=== PATIENT | male | born 1960 | race Caucasian/White ===

== ENCOUNTER 2017-07-20 19:11 | Emergency (ER) | payer OTHER ==
[~2017-07-20] VITALS: Ht 185.4 cm; Wt 84.0 kg
[~2017-07-20 19:11] MED LIST: ASPI-232 PO; ATOR-26 PO; CLOP1TAB15 PO; LPR25 PO; NIAC500T11 PO; [UNRECOGNIZED DRUG - OTHER] PO
[2017-07-20 19:20] VITALS: Ht 185.4 cm; Wt 84.0 kg
[2017-07-20] MEDS ORDERED: ROSU40TA PO (20:06)
[2017-07-20] MEDS ORDERED: LISI-729 PO (20:06)
[2017-07-20] MEDS ORDERED: GLC/500 PO (20:06)
[2017-07-20] MEDS ORDERED: NORCO PO (20:06)
[2017-07-20] MEDS ORDERED: B-COTAB18 PO (20:06)
[2017-07-20] MEDS ORDERED: LVMI SQ (20:13)
--- NOTE | 2017-07-20 20:58 | DIAGNOSTIC IMAGING REPORT ---
SACRUM AND COCCYX 3 VIEWS CLINICAL HISTORY: Fall with tailbone pain. FINDINGS: 3 views of the sacrum and coccyx are obtained. No prior studies are available for comparison at the time of dictation. The skeletal structures are osteopenic. There is no clear radiographic evidence of fracture involving the sacrum or coccyx. Advanced lumbosacral spondylosis is partially imaged. Sclerotic change is noted in the sacroiliac joints. There is a nonobstructed abdominal bowel gas pattern. IMPRESSION: Osteopenia with no clear radiographic evidence of sacrococcygeal fracture. Electronically signed by: Kayode Serrato M.D. 07/20/2017 8:56 PM Dictated Date/Time: 07/20/2017 8:55 PM
--- NOTE | 2017-07-20 21:00 | DIAGNOSTIC IMAGING REPORT ---
LEFT HAND 3 VIEWS CLINICAL HISTORY: Fall with left hand pain. FINDINGS: 3 views of left hand are obtained. No prior studies are available for comparison at the time of dictation. The skeletal structures appear well mineralized. No fracture is seen. Mild arthritic changes present involving the interphalangeal joints. Atherosclerotic calcification is noted in the radial artery. Mild dorsal soft tissue sinus noted. IMPRESSION: Dorsal soft tissue swelling with no radiographic evidence of left hand fracture. Electronically signed by: Kayode Serrato M.D. 07/20/2017 8:59 PM Dictated Date/Time: 07/20/2017 8:57 PM
--- NOTE | 2017-07-20 21:31 | EMERGENCY ROOM VISIT NOTE ---
History First contact with patient: 19:56 Chief Complaint: FALL Stated Complaint: FALL,HURT TAILBONE AND L HAND History of Present Illness The patient is a 56 year old male who presents to the Emergency Room with complaints of tailbone pain and left hand pain after a fall. The patient states that he slipped and fell at work 2 days ago. He fell onto his buttocks on concrete steps and tried to stop his fall with his hand. He rates his discomfort a 7/10. He has been using an herbal cream for the pain without relief. He has a history of an L5-S1 discectomy and has chronic right foot drop. Otherwise, he denies any numbness or weakness of the legs. Bowel movements have been normal. Review of Systems A complete 10 point review of systems was reviewed with the patient with pertinent positives and negatives as per history of present illness. All else were negative. Past Medical/Surgical History Medical Problems: (1) Diabetes mellitus type 2 (2) discectomy (3) Hernia repair (4) History of cholecystectomy Social History Smoking Status: Never Smoker Alcohol Use: none Drug Use: none Marital Status: Housing Status: lives alone Occupation Status: employed Current/Historical Medications Scheduled Aspirin (Aspir-81), 81 MG PO DAILY Insulin Detemir (Levemir), 18 UNITS SQ BID Lisinopril (Zestril), 2.5 MG PO DAILY Metformin Hcl (Glucophage), 500 MG PO BID Metoprolol Tartrate (Lopressor), 25 MG PO BID Rosuvastatin Calcium (Crestor), 40 MG PO DAILY [[place]], 2 TABS PO TODAY Miscellaneous Medications B-Complex Vitamins (Vitamin B Complex), 1 TAB PO Physical Exam Vital Signs Date Time Temp Pulse Resp B/P (MAP) Pulse Ox O2 Delivery O2 Flow Rate FiO2 07/20/17 21:38 36.5 71 16 132/76 99 07/20/17 19:20 36.5 83 16 96/61 98 Room Air Physical Exam VITALS: Vitals are noted on the nurse's note and reviewed by myself. Vital signs stable. GENERAL: This is a 56-year-old male, in no acute distress, nondiaphoretic, well- developed well-nourished. SKIN: No edema, erythema or ecchymosis. HEART: Regular rate and rhythm without murmurs gallops or rubs. LUNGS: Clear to auscultation bilaterally without wheezes, rales or rhonchi. ABDOMEN: Soft, nontender to palpation. MUSCULOSKELETAL: There is tenderness to palpation in the sacral region. Full range of motion of the spine and bilateral lower extremities. Normal gait. There is edema of the left hand and tenderness over the third metacarpal. Full range of motion of the hand. Computing Machine Operator strength 5/5. NEURO: Patient was alert and oriented to person place and time. Normal sensation to light and sharp touch. Medical Decision & Procedures ER Provider Diagnostic Interpretation: SACRUM AND COCCYX 3 VIEWS FINDINGS: 3 views of the sacrum and coccyx are obtained. No prior studies are available for comparison at the time of dictation. The skeletal structures are osteopenic. There is no clear radiographic evidence of fracture involving the sacrum or coccyx. Advanced lumbosacral spondylosis is partially imaged. Sclerotic change is noted in the sacroiliac joints. There is a nonobstructed abdominal bowel gas pattern. IMPRESSION: Osteopenia with no clear radiographic evidence of sacrococcygeal fracture. LEFT HAND 3 VIEWS FINDINGS: 3 views of left hand are obtained. No prior studies are available for comparison at the time of dictation. The skeletal structures appear well mineralized. No fracture is seen. Mild arthritic changes present involving the interphalangeal joints. Atherosclerotic calcification is noted in the radial artery. Mild dorsal soft tissue sinus noted. IMPRESSION: Dorsal soft tissue swelling with no radiographic evidence of left hand fracture. Medical Decision Differential diagnosis includes fracture, contusion, dislocation, sprain, among others. The patient was evaluated as above. Imaging studies were performed and read by radiology as above. No fractures were identified. Conservative measures were discussed with the patient. He will follow-up with his primary care provider as needed. He verbalized understanding of my assessment and treatment plan was discharged home in good condition. Medication Reconcilliation Current Medication List: was personally reviewed by me Blood Pressure Screening Patient's blood pressure: Normal blood pressure Impression Primary Impression: Fall Additional Impression: Contusion of multiple sites Departure Information Dispostion Home / Self-Care Condition GOOD Referrals [facility] (PCP) Patient Instructions My [facility] Additional Instructions For pain control, you can use the following [id number] medicines (if >12 yo): - Regular strength (325mg/tab) Tylenol (acetaminophen) 2 tabs every 4-6 hours as needed. Do not exceed 12 tablets in a 24 hour period. Avoid taking more than 4 grams (4000 mg) of Tylenol per day. This includes any other sources of acetaminophen you may take on a regular basis. - Regular strength (200 mg/tab) Advil (ibuprofen) 1-2 tabs every 4-6 hours as needed. Do not exceed a dose of 3200 mg per day. Apply ice to the areas of pain as needed. Follow-up with your primary care provider as needed. You may buy a "donut" at the pharmacy to sit on which will help with the tailbone pain. Return to the emergency with any worsening or new/concerning symptoms. Problem Qualifiers Primary Impression: Fall Encounter type: initial encounter Qualified Codes: W19.XXXA - Unspecified fall, initial encounter
[2017-07-20 21:38] VITALS: BP 132/76; PULSE 71; TEMP 36.5; O2SAT 99
== END 2017-07-20 21:39 | disposition home or self-care (01) ==
LOC: C.EDB 19:12 → C.EDD 21:39
DX: T14.8 Other injury of unspecified body region (principal); W01.0XXA Fall on same level from slipping, tripping and stumbling without subsequent striking against object, initial encounter; Y92.89 Other specified places as the place of occurrence of the external cause; Y99.0 Civilian activity done for income or pay; E11.9 Type 2 diabetes mellitus without complications; Z90.49 Acquired absence of other specified parts of digestive tract; Z98.890 Other specified postprocedural states; Z79.4 Long term (current) use of insulin; Z79.82 Long term (current) use of aspirin; Z79.84 Long term (current) use of oral hypoglycemic drugs; Z79.899 Other long term (current) drug therapy

== ENCOUNTER 2022-03-30 22:15 | Inpatient (IN) ==
[2022-03-30] MEDS ORDERED: ASPIRIN CHEW 324 MG PO STA (22:24)
[2022-03-30] MEDS ORDERED: MIDAZOLAM HCL 1 MG/ML 2ML VIAL ONE ×2 (22:37→23:33)
[2022-03-30] MEDS ORDERED: HEPARIN (PORCINE) 1000 UNIT/ML 10 ML (CATH LAB USE ONLY) ONE ×2 (22:38→23:38)
[2022-03-30] MEDS ORDERED: fentaNYL citrate 100 MCG/2 ML VIAL ONE (22:38)
[2022-03-30] MEDS ORDERED: niCARdipine HCL INJ 2.5 MG/ML 10 ML AMP ONE (22:38)
[2022-03-30] MEDS ORDERED: NITROGLYCERIN/D5W 100MCG/ML 20ML SYR ONE (22:38)
--- NOTE | 2022-03-30 22:39 | Emergency Department Note ---
Impression & Plan Acute SC, Acute electrocardiogram changes, Precordial chest pain, Elevated troponin ED Provider Note NAME: ANETA VERA AGE: 61 SEX: M : 1960 ARRIVES VIA: Walk-In INFORMANT: [Patient] ED PROVIDER(S): [Kayode Keller MD] CHIEF COMPLAINT: Chest pain HISTORY OF PRESENT ILLNESS: The patient is a 61-year-old male with a history of cardiac stenting and SC. He presents to the ED with around 30 minutes of central chest pain rating to his back and down both shoulders and to his jaw. The pain was moderate in severity. He was a bit short of breath with it and somewhat sweaty. 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 He thinks the pain is a slightly better now compared to when it first began. There has been no cough or cold or congestion. He has been in baseline health. He cannot recall how long ago it was that he had his previous cardiac intervention. REVIEW OF SYSTEMS: See HPI for pertinent positives and negatives. A total of ten systems were reviewed and were otherwise negative. PMHx/PSHx: See Below SOCIAL HISTORY: See Below. PHYSICAL EXAM: GENERAL: Patient is in no acute distress. HEENT: No acute trauma, normocephalic atraumatic, mucous membranes moist, no nasal congestion, no scleral icterus. NECK: No stridor, no adenopathy, no meningismus, trachea is midline. LUNGS: Clear to auscultation bilaterally, no wheeze, no rhonchi, breath sounds equal. HEART: Without murmurs gallops or rubs, regular rate and rhythm. ABDOMEN: Soft, nontender, bowel sounds positive, no hernias, no peritonitis. EXTREMITIES: No cyanosis or edema, full range of motion of all the joints without pain or difficulty, no signs for acute trauma. NEUROLOGIC: Oriented x 3, no acute motor or sensory deficits, no focal weakness. SKIN: No rash, no jaundice, no diaphoresis. DIFFERENTIAL DIAGNOSIS: Cardiac ischemia, aortic dissection, pulmonary embolism, pneumothorax, pneumonia, pericarditis, myocarditis, esophageal rupture, GERD, cholecystitis, pancreatitis, musculoskeletal, as well as other pathologies. EMERGENCY DEPARTMENT COURSE/PROCEDURES: ECG: Indication was chest pain. ECG shows what appears to be a sinus bradycardia with some junctional escape beats. Rate is 66. There is ST elevation in the inferior leads with some ST depression/T wave inversion seen laterally consistent with an inferior posterior SC. QTC is 415. Compared to an ECG from 03 December 2014, significant changes have occurred. Repeat ECG: Indication was chest pain. The ECG shows a normal sinus rhythm with a rate of 91. There is no ST elevation, no PVCs. The QTC is 437. Compared to the ECG from earlier today, the ST changes have resolved. Continuous Cardiac Monitoring: An order was placed for continuous cardiac monitoring. The monitor shows a rate of 75 with normal sinus rhythm. Critical Care Note: I have personally spent 33 minutes of critical care time in the direct management of this patient. This includes bedside care, interpretation of diagnostic studies, and testing, discussion with consultants, patient, and family members, and other required patient management activities. This 33 minutes is in excess of all separately billable procedures. MEDICAL DECISION MAKING: There is no leukocytosis. A very mild anemia was noted. There was a normal platelet count. No coagulopathy. There was some mild renal insufficiency with a creatinine of 1.53. No electrolyte abnormality in need of emergent correction. No concerning liver enzyme elevation. No evidence for pancreatitis. ECG initially showed a sinus bradycardia with some junctional escape beats. There was ST elevation indicating an acute inferior posterior SC. Cardiac troponin testing returned elevated at 432, consistent with cardiac injury. Chest film did not show mediastinal widening, pneumonia or pneumothorax. The patient began to feel better within about 10 to 15 minutes of being here in the ED. Repeat EKG showed normalization of his ST/T wave changes. During the patient's ER stay, he was given oral aspirin. Given the patient's presentation, a heart alert was called. The patient was seen by interventional cardiology and has been taken to the cardiac catheterization laboratory. The patient is aware of his findings, I did speak with the high risk case manager. The on-call hospitalist was consulted as well. Past Med/Surg History Medical History (Updated 03/31/22 @ 02:18 by Kayode Keller MD) CAD (coronary artery disease) Social History Smoking Status: Former smoker Tobacco Type: Smokeless Tobacco (Dip or Chew) Do You Dip or Chew Tobacco: Yes; Hx Alcohol Use: Yes Alcohol type: hard liquor Hx Substance Use: No Preferred Language: Pashto Beliefs That Will Affect Care: None Current Living Situation: Spouse Feels Safe at Home: Yes Safety Concerns: Feels Safe At This Time Allergies Allergies Allergy/AdvReac Type Severity Reaction Status Date / Time morphine Allergy Severe RESPIRATORY Verified 03/30/22 22:45 DISTRESS Home Meds Home Medications Medication Instructions Recorded Confirmed aspirin 81 mg tablet,delayed 81 mg PO DAILY 06/01/19 03/30/22 release ibuprofen 200 mg tablet 400 - 600 mg PO DIRECTED PRN 06/01/19 03/30/22 lisinopril 2.5 mg tablet 0 mg PO QAM 06/01/19 03/30/22 rosuvastatin 40 mg tablet (Crestor) 0 mg PO HS 06/01/19 03/30/22 vitamin B comp and C no.3 15 mg-10 1 cap PO DAILY 06/01/19 03/30/22 mg-50 mg-5 mg-300 mg capsule cinnamon bark-chromium picolinate 1 cap PO DAILY 03/30/22 03/30/22 500 mg-100 mcg capsule metoprolol succinate 25 mg 0 mg PO DAILY 03/30/22 03/30/22 tablet,extended release 24 hr nitroglycerin 0.4 mg sublingual 0.4 mg SUBLINGUAL DIRECTED PRN 03/30/22 03/30/22 tablet (Nitrostat) sitagliptin 25 mg tablet (Januvia) 0 mg PO DAILY 03/30/22 03/30/22 Results & Data (ED) Vital Signs Vital Signs - 24 hr 03/30/22 22:19 03/30/22 22:32 03/30/22 22:45 Temperature 36.8 C Temperature Source Temporal Artery Scan Pulse Rate 79 93 H Respiratory Rate 20 19 25 H Respiratory Effort / Characteristics Non-Labored Spontaneous Respiratory Depth Normal Respiratory Pattern Regular Blood Pressure 101/55 L 145/77 H 134/80 Blood Pressure Mean 70 99 98 Pulse Oximetry 100 100 100 Oxygen Delivery Method Room Air Room Air Room Air Sepsis Recent Fever Within 48 Hours No Sepsis New/Unexplained Change in Mental Status No Sepsis Action Taken by Nursing No Action Required Home Medications Current Medication List: was personally reviewed by me Laboratory Data Attestation: I reviewed the patient's lab results. Result diagrams: 03/30/22 22:27 03/30/22 22:27 Lab Results 03/30/22 03/30/22 03/30/22 Range/Units 22:27 22:27 22:27 WBC 7.34 (4.8-10.8) K/uL RBC 4.37 L (4.7-6.1) M/uL Hgb 13.1 L (14.0-18.0) g/dL Hct 39.6 L (42-52) % MCV 90.6 (80-100) fL MCH 30.0 (25-34) pg MCHC 33.1 (32-36) g/dL RDW Std Deviation 49.3 H (36.4-46.3) fL RDW Coeff of Saroj 14.7 H (11.5-14.5) % Plt Count 311 (130-400) K/uL MPV 10.9 H (7.4-10.4) fL Immature Gran % (Auto) 0.1 % Neut % (Auto) 45.4 % Lymph % (Auto) 40.2 % Trigg % (Auto) 9.8 % Eos % (Auto) 3.7 % Baso % (Auto) 0.8 % Neut # (Auto) 3.33 (1.4-6.5) K/uL Lymph # (Auto) 2.95 (1.2-3.4) K/uL Trigg # (Auto) 0.72 H (0.11-0.59) K/uL Eos # (Auto) 0.27 (0-0.5) K/uL Baso # (Auto) 0.06 (0-0.2) K/uL Immature Gran # (Auto) 0.01 (0.00-0.02) K/uL PT (9.0-12.0) Seconds INR (0.9-1.1) APTT (21.0-31.0) Seconds PTT Ratio Activ Coag Time Kaolin (94-140) SECONDS Sodium 135 L (136-145) mmol/L Potassium 4.1 (3.5-5.1) mmol/L Chloride 103 (98-107) mmol/L Carbon Dioxide 22 (21-32) mmol/L Anion Gap 10 (3-11) BUN 33 H (6-23) mg/dl Creatinine 1.53 H (0.6-1.4) mg/dl Est Cr Clr Drug Dosing 52.0 ml/min Est GFR ( Amer) 55.7 ml/min Est GFR (Non-Af Amer) 48.0 ml/min BUN/Creatinine Ratio 21.6 H (10-20) Glucose 246 H (70-99(Fasting)) mg/dl Calcium 8.7 (8.5-10.1) mg/dl Magnesium 1.8 (1.7-2.4) mg/dl Total Bilirubin 0.5 (0.2-1.0) mg/dl AST 21 (13-39) U/L ALT 18 (7-52) U/L Alkaline Phosphatase 80 (34-104) U/L Troponin I High Sens 432.7 H* (0-20) pg/ml Total Protein 7.0 (6.0-8.3) gm/dl Albumin 4.2 (3.4-5.0) gm/dl Globulin 2.8 (2.5-4.0) gm/dl Albumin/Globulin Ratio 1.5 (0.9-2) Lipase 29 (11-82) U/L SARS-CoV-2, RNA, NAAT (NEGATIVE) 03/30/22 03/30/22 03/30/22 Range/Units 22:27 22:34 23:34 WBC (4.8-10.8) K/uL RBC (4.7-6.1) M/uL Hgb (14.0-18.0) g/dL Hct (42-52) % MCV (80-100) fL MCH (25-34) pg MCHC (32-36) g/dL RDW Std Deviation (36.4-46.3) fL RDW Coeff of Saroj (11.5-14.5) % Plt Count (130-400) K/uL MPV (7.4-10.4) fL Immature Gran % (Auto) % Neut % (Auto) % Lymph % (Auto) % Trigg % (Auto) % Eos % (Auto) % Baso % (Auto) % Neut # (Auto) (1.4-6.5) K/uL Lymph # (Auto) (1.2-3.4) K/uL Trigg # (Auto) (0.11-0.59) K/uL Eos # (Auto) (0-0.5) K/uL Baso # (Auto) (0-0.2) K/uL Immature Gran # (Auto) (0.00-0.02) K/uL PT 10.3 (9.0-12.0) Seconds INR 1.0 (0.9-1.1) APTT 26.4 (21.0-31.0) Seconds PTT Ratio 1.0 Activ Coag Time Kaolin 249 H (94-140) SECONDS Sodium (136-145) mmol/L Potassium (3.5-5.1) mmol/L Chloride (98-107) mmol/L Carbon Dioxide (21-32) mmol/L Anion Gap (3-11) BUN (6-23) mg/dl Creatinine (0.6-1.4) mg/dl Est Cr Clr Drug Dosing ml/min Est GFR ( Amer) ml/min Est GFR (Non-Af Amer) ml/min BUN/Creatinine Ratio (10-20) Glucose (70-99(Fasting)) mg/dl Calcium (8.5-10.1) mg/dl Magnesium (1.7-2.4) mg/dl Total Bilirubin (0.2-1.0) mg/dl AST (13-39) U/L ALT (7-52) U/L Alkaline Phosphatase (34-104) U/L Troponin I High Sens (0-20) pg/ml Total Protein (6.0-8.3) gm/dl Albumin (3.4-5.0) gm/dl Globulin (2.5-4.0) gm/dl Albumin/Globulin Ratio (0.9-2) Lipase (11-82) U/L SARS-CoV-2, RNA, NAAT NEGATIVE (NEGATIVE) 03/30/22 Range/Units 23:57 WBC (4.8-10.8) K/uL RBC (4.7-6.1) M/uL Hgb (14.0-18.0) g/dL Hct (42-52) % MCV (80-100) fL MCH (25-34) pg MCHC (32-36) g/dL RDW Std Deviation (36.4-46.3) fL RDW Coeff of Saroj (11.5-14.5) % Plt Count (130-400) K/uL MPV (7.4-10.4) fL Immature Gran % (Auto) % Neut % (Auto) % Lymph % (Auto) % Trigg % (Auto) % Eos % (Auto) % Baso % (Auto) % Neut # (Auto) (1.4-6.5) K/uL Lymph # (Auto) (1.2-3.4) K/uL Trigg # (Auto) (0.11-0.59) K/uL Eos # (Auto) (0-0.5) K/uL Baso # (Auto) (0-0.2) K/uL Immature Gran # (Auto) (0.00-0.02) K/uL PT (9.0-12.0) Seconds INR (0.9-1.1) APTT (21.0-31.0) Seconds PTT Ratio Activ Coag Time Kaolin 267 H (94-140) SECONDS Sodium (136-145) mmol/L Potassium (3.5-5.1) mmol/L Chloride (98-107) mmol/L Carbon Dioxide (21-32) mmol/L Anion Gap (3-11) BUN (6-23) mg/dl Creatinine (0.6-1.4) mg/dl Est Cr Clr Drug Dosing ml/min Est GFR ( Amer) ml/min Est GFR (Non-Af Amer) ml/min BUN/Creatinine Ratio (10-20) Glucose (70-99(Fasting)) mg/dl Calcium (8.5-10.1) mg/dl Magnesium (1.7-2.4) mg/dl Total Bilirubin (0.2-1.0) mg/dl AST (13-39) U/L ALT (7-52) U/L Alkaline Phosphatase (34-104) U/L Troponin I High Sens (0-20) pg/ml Total Protein (6.0-8.3) gm/dl Albumin (3.4-5.0) gm/dl Globulin (2.5-4.0) gm/dl Albumin/Globulin Ratio (0.9-2) Lipase (11-82) U/L SARS-CoV-2, RNA, NAAT (NEGATIVE) Administered Medications Discontinued Medications Aspirin (Aspirin Chew 324 Mg) 324 mg PO NOW STA Stop: 03/30/22 22:25 Last Admin: 03/30/22 22:32 Dose: 324 mg Documented by: [id number] Atropine Sulfate (Atropine Sulfate 0.1 Mg/Ml 10ml Syr) Confirm Administered Dose 1 mg IV .STK-MED ONE Stop: 03/30/22 23:28 Last Admin: 03/30/22 23:57 Dose: Not Given Documented by: [id number] Clopidogrel Bisulfate (Clopidogrel Bisulfate 300 Mg Tab) Confirm Administered Dose 600 mg .ROUTE .STK-MED ONE Stop: 03/31/22 00:05 Last Admin: 03/31/22 00:14 Dose: 600 mg Documented by: [id number] Fentanyl Citrate (Fentanyl Citrate 100 Mcg/2 Ml Vial) Confirm Administered Dose 100 mcg .ROUTE .STMixamo-MED ONE Stop: 03/30/22 22:39 Last Admin: 03/30/22 23:57 Dose: 100 mcg Documented by: [id number] Heparin Sodium (Porcine) (Heparin (Porcine) 1000 Unit/Ml 10 Ml (Automotive Shop Foreman Use Only)) Confirm Administered Dose 10,000 units .ROUTE .STMixamo-MED ONE Stop: 03/30/22 22:39 Last Admin: 03/30/22 23:57 Dose: 10,000 units Documented by: [id number] Heparin Sodium (Porcine) (Heparin (Porcine) 1000 Unit/Ml 10 Ml (Automotive Shop Foreman Use Only)) Confirm Administered Dose 10,000 units .ROUTE .STMixamo-MED ONE Stop: 03/30/22 23:39 Last Admin: 03/30/22 23:58 Dose: 2,000 units Documented by: [id number] Heparin Sodium/Sodium Chloride (Heparin In Nss Infusion 1000 Unit/500 Ml (2 U/Ml) Bag) Confirm Administered Dose 3,000 units IV .STMixamo-MED ONE Stop: 03/30/22 22:39 Last Admin: 03/30/22 23:57 Dose: 3,000 units Documented by: [id number] Midazolam HCl (Midazolam Hcl 1 Mg/Ml 2ml Vial) Confirm Administered Dose 2 mg .ROUTE .STMixamo-MED ONE Stop: 03/30/22 22:38 Last Admin: 03/30/22 23:56 Dose: 2 mg Documented by: [id number] Midazolam HCl (Midazolam Hcl 1 Mg/Ml 2ml Vial) Confirm Administered Dose 2 mg .ROUTE .STMixamo-MED ONE Stop: 03/30/22 23:34 Last Admin: 03/30/22 23:57 Dose: 1 mg Documented by: [id number] Nicardipine HCl (Nicardipine Hcl Inj 2.5 Mg/Ml 10 Ml Amp) Confirm Administered Dose 25 mg .ROUTE .STK-MED ONE Stop: 03/30/22 22:39 Last Admin: 03/30/22 23:57 Dose: 25 mg Documented by: [id number] Nitroglycerin/Dextrose (Nitroglycerin/D5w 100mcg/Ml 20ml Syr) Confirm Administered Dose 2,000 mcg .ROUTE .STK-MED ONE Stop: 03/30/22 22:39 Last Admin: 03/30/22 23:57 Dose: 2,000 mcg Documented by: [id number] Imaging Data Attestation: I personally reviewed and interpreted this imaging study as fol lows: My Impression: Chest x-ray: There is no mediastinal widening, CHF or pneumonia per my review. Discharge Plan Visit Data Chief Complaint: Chest Pain Stated Complaint: CHEST PAIN ED Provider: Kayode Keller Discharge Problem: Acute SC, Acute electrocardiogram changes, Precordial chest pain, Elevated troponin Patient Disposition: Admitted As Inpatient Condition: Fair Discharge Instructions Interventions: ED Discharge Assessment Last Done: 03/30/22 22:57
[2022-03-30 22:47] LABS: Basophils # (auto) 0.06 K/uL (0-0.2); Basophils % (auto) 0.8 %; Eosinophils # (auto) 0.27 K/uL (0-0.5); Eosinophils % (auto) 3.7 %; Hematocrit (blood only) 39.6 % (42-52); Hemoglobin 13.1 g/dL (14.0-18.0); Immature Granulocytes # (auto) 0.01 K/uL (0.00-0.02); Immature Granulocytes % (auto) 0.1 %; Lymphocytes # (auto) 2.95 K/uL (1.2-3.4); Lymphocytes % (auto) 40.2 %; Mean Corpuscular Hgb Conc 33.1 g/dL (32-36); Mean Corpuscular Volume 90.6 fL (80-100); Mean Platelet Volume 10.9 fL (7.4-10.4); Monocytes # (auto) 0.72 K/uL (0.11-0.59); Monocytes % (auto) 9.8 %; Neutrophils # (auto) 3.33 K/uL (1.4-6.5); Neutrophils % (auto) 45.4 %; Platelet Count 311 K/uL (130-400); RDW Coefficient of Variation 14.7 % (11.5-14.5); RDW Standard Deviation 49.3 fL (36.4-46.3); Red Blood Count 4.37 M/uL (4.7-6.1); White Blood Count 7.34 K/uL (4.8-10.8)
[2022-03-30 22:54] LABS: Partial Thromboplastin Time 26.4 Seconds (21.0-31.0); Prothrombin Time 10.3 Seconds (9.0-12.0)
--- NOTE | 2022-03-30 23:05 | Pre Anesthesia Assessment ---
Date of Service March 30, 2022 Pre Sedation Assessment Vital Signs Temp Pulse Resp BP Pulse Ox 03/30/22 22:45 93 H 25 H 134/80 100 03/30/22 22:32 79 19 145/77 H 100 03/30/22 22:19 98.2 F 20 101/55 L 100 Cardiovascular RRR, no murmur, no edema Respiratory normal respiratory effort, lungs clear to auscultation Pre-Sedation Airway Assessment Smoking Status: Former smoker Hx Sleep Apnea: No Hx Difficult Intubation: No Short, Thick Neck: No Thyromental Distance: > or= 3.5 Finger Breadths Oral Cavity: + WNL Mallampati Class: III ASA: ASA3 Procedure Planning Contraindications for Sedation: none Current Medications Reviewed: Yes Notes The planned sedation has been discussed with the patient. Informed Consent was obtained. I have identified the patient, determined the appropriateness of sedation and have assessed the patient immediately prior to the procedure. All medicine(s) and interventions are by my order.
[2022-03-30 23:07] LABS: Albumin Globulin Ratio 1.5 (0.9-2); Albumin Level 4.2 gm/dl (3.4-5.0); BUN Creatinine Ratio 21.6 (10-20); Bilirubin,Total 0.5 mg/dl (0.2-1.0); Calcium 8.7 mg/dl (8.5-10.1); Est GFR (African American) 55.7 ml/min; Globulin 2.8 gm/dl (2.5-4.0); Magnesium 1.8 mg/dl (1.7-2.4); Potassium 4.1 mmol/L (3.5-5.1)
--- NOTE | 2022-03-30 23:08 | Cardiology Consultation ---
Date of Consultation March 30, 2022 Assessment & Plan (1) STEMI (ST elevation myocardial infarction): Presentation consistent high risk ACS with transient inferior ST elevations on ECG and recommend proceeding with emergent cardiac catheterization and likely primary PCI. No apparent contraindications to procedure. Discussed risks, benefits, alternatives of procedure with patient and they are willing to proceed. Further recommendations pending findings of coronary angiography. History of Present Illness History of Present Illness 61-year-old man here with acute chest pain and ECG concerning for acute SC. Pat ient seen emergently in the ED after heart alert activated on arrival. Prior cardiac catheterization in 2012 showing three-vessel coronary disease including totally occluded ramus, significant mid LAD and OM stenosis. Underwent EDGARD x3 to LAD, OM1 and ramus at [facility]. Last stress echo 12/2014 revealed normal resting LV function. Other medical issues include type 2 diabetes on insulin, hypertension. 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 Describes substernal chest pain radiating to his back, down both shoulders and into his jaw. Associated with mild diaphoresis, shortness of breath. On arrival active chest pain and initial ECG showed junctional rhythm with inferior ST elevations. After aspirin chest pain improved and follow-up EKG showed resolved ST elevations. Allergies Allergy/AdvReac Type Severity Reaction Status Date / Time morphine Allergy Severe RESPIRATORY Verified 03/30/22 22:45 DISTRESS Home Medications Medication Instructions Recorded Confirmed Type aspirin 81 mg tablet,delayed 81 mg PO DAILY 06/01/19 03/30/22 History release ibuprofen 200 mg tablet 400 - 600 mg PO DIRECTED PRN 06/01/19 03/30/22 History lisinopril 2.5 mg tablet 0 mg PO QAM 06/01/19 03/30/22 History rosuvastatin 40 mg tablet (Crestor) 0 mg PO HS 06/01/19 03/30/22 History vitamin B comp and C no.3 15 mg-10 1 cap PO DAILY 06/01/19 03/30/22 History mg-50 mg-5 mg-300 mg capsule cinnamon bark-chromium picolinate 1 cap PO DAILY 03/30/22 03/30/22 History 500 mg-100 mcg capsule metoprolol succinate 25 mg 0 mg PO DAILY 03/30/22 03/30/22 History tablet,extended release 24 hr nitroglycerin 0.4 mg sublingual 0.4 mg SUBLINGUAL DIRECTED PRN 03/30/22 03/30/22 History tablet (Nitrostat) sitagliptin 25 mg tablet (Januvia) 0 mg PO DAILY 03/30/22 03/30/22 History Patient History Medical History (Updated 03/31/22 @ 00:14 by Maco Avelar MD) CAD (coronary artery disease) Social History Smoking Status: Former smoker Tobacco Type: Smokeless Tobacco (Dip or Chew) Preferred Language: Belizean Feels Safe at Home: Yes Review of Systems Review of Systems: All systems reviewed & are unremarkable except as noted in HPI & below Physical Exam Physical Exam: General: Comfortable HEENT: Sclerae anicteric Lungs: Clear to auscultation bilaterally, no crackles or wheezes Cardiac: Regular rate and rhythm, no murmurs. Vascular: 2+ radial, DP pulses. Abdomen: Soft, nontender Extremities: Well perfused, no peripheral edema Neuro: Nonfocal Psych: Alert orient x3, normal affect and mood Results & Data ([facility]) Vital Signs (Past 12 Hours) Vital Signs Temp Pulse Resp BP Pulse Ox 03/30/22 22:45 93 H 25 H 134/80 100 03/30/22 22:32 79 19 145/77 H 100 03/30/22 22:19 98.2 F 20 101/55 L 100 PG Care Time/CCT Total # of Minutes Spent Total Time Spent with Patient: Total time spent is greater than 50% in coordination of care (as documented) at patient's floor/unit and/or counseling patient: Coding Level of Care Code 66585 Inpt Consult Level 4 Diagnoses STEMI (ST elevation myocardial infarction) I21.3
[2022-03-30] MEDS ORDERED: ATROPINE SULFATE 0.1 MG/ML 10ML SYR IV ONE (23:27)
[2022-03-31] MEDS ORDERED: CLOPIDOGREL BISULFATE 300 MG TAB ONE (00:04)
[2022-03-31] MEDS ORDERED: ONDANSETRON INJ 2 MG/ML 2 ML VIAL IV PRN (00:15)
[2022-03-31] MEDS ORDERED: ACETAMINOPHEN 325 MG TAB PO PRN (00:15)
[2022-03-31] MEDS ORDERED: ICU PROTOCOL FOR HYPERGLYCEMIA PRN (00:20)
--- NOTE | 2022-03-31 00:24 | Post Anesthesia Assessment ---
Date of Service March 31, 2022 Post Sedation Assessment Vital Signs Temp Pulse Resp BP Pulse Ox 03/30/22 22:45 93 H 25 H 134/80 100 03/30/22 22:32 79 19 145/77 H 100 03/30/22 22:19 98.2 F 20 101/55 L 100 Recovery Score Activity: Moves 4 extremities Respiration: Deep Breath/Cough Circulation: +/-20% PreAnes Value Consciousness: Fully Awake Oxygen Saturation: O2 needed for >90% Discharge Sedation Level of Care: Fast Track Phase II Post Sedation Plan On clinical assessment, the patient appears to have tolerated the sedation without complications. Patient is recovering as anticipated. Patient will continue to be monitored by nursing and may be discharged when sedation discharge criteria are met per below protocol. Upon Completions of procedure up to 15 minutes continue every 5 minute vital s igns and the P.A.R. score; then discharge to a Phase I or Fast Track to Phase II per the following guidelines: * Discharge Patient to appropriate Phase II area if PAR is 8 or greater or return to pre- procedure baseline. The post - procedure orders will be as directed. * If PAR score is less than 8 or not return to pre-procedure baseline then patient will follow Phase I monitoring till PAR is reached for Phase II. The Phase I may be done in procedure room or may call to secure a Phase I area. * If naloxone or flumazenil are used for reversal, hold in Phase I for continued monitoring from when last reversal dose was given for a minimum of 60 minutes or longer pending the nurse and/or physician discretion of patient condition before discharge to Phase II. Please call the Sedation Physician to re-evaluate and complete post-note for discharge to Phase II area. Do NOT discharge from procedure sedation or Phase 1 until post- sedation evaluation note is complete by procedure /sedation MD Sedation Discharge Instructions to be given to the patient at discharge to home.
--- NOTE | 2022-03-31 00:30 | Cardiac Catheterization ---
ACC Data: Employment Coach Cardiac Status Clinical evaluation leading to the procedure CAD Presenation: STEMI Anginal Classification: CCS IV Diagnostic Physicians Name: Jose G Avelar MD Closure Device Recommendations: PCI without planned CABG Cardiac Cath Procedure Full Procedure Date March 31, 2022 Pre-Procedure Diagnosis Pre-Procedure Diagnosis: STEMI AUC Score AUC Score: 9 Post-Procedure Diagnosis Post-Procedure Diagnosis: Severe CAD and Successful PCI Procedure(s) Performed Procedure(s) Performed: Coronary Angiography, Left Heart Cath and Drug Eluting Stent Aviation Warfare Systems Operator Jose G Avelar MD Clinical Trial Leader(s) Cabinetmaker Maintenance Estimated Blood Loss Estimated Blood Loss: 15 Medication(s) Medication(s): Clopidogrel, Fentanyl, Heparin, Lidocaine 1%, Nicardipine, Nitroglycerin and Versed Summary of Findings Indication: STEMI/Heart Alert Access: 6 Fr right radial artery Catheters: [email or web address] guide Findings: LM -normal caliber, no significant disease LAD -medium caliber, proximal to mid stent widely patent, 40 to 50% focal mid stenosis just after stent. Very distal LAD subtotally occluded as wraps around apex. Ramusproximal stent widely patent, 70% mid segment stenosis Circumflex -medium caliber, 40% mid stenosis. 60 to 70% stenosis in OM 2 after prior stent RCA -dominant, medium caliber, acute 98% proximal stenosis with thrombus, 70% early distal stenosis, 90% latedistal stenosis at bifurcation extending into PDA. LVEDP -6 -- PCI -- Antithrombotic therapy: Heparin, clopidogrel Procedure: RCA cannulated with JR4 guide After initial diagnostic images, proximal LAD occluded with OFELIA 0 flow Self Sealing Fuel Tank Repairer 50 wire passed across lesion into distal PLB Proximal RCA lesion predilated with 2.0 compliant balloon and flow reestablished Second semiconductor wafers marker 50 wire placed into distal right PDA Distal RCA lesions dilated with 2.0 balloon Distal RCA stented with 2.5 x 30 mm Hal drug-eluting stent into PDA Stent postdilated with 2.75 NC Proximal RCA stented with 3.0 x 15 mm Hal drug-eluting stent Stent post-dilated with 3.5 noncompliant balloon IC vasodilators administered for spasm Post procedure OFELIA 3 flow, stents well expanded with minimal residual stenosis and no apparent cardiac complications. Arterial Closure: TR band Summary: 1. Inferior STEMI/subtotal acute proximal RCA occlusion 2. Multivessel non-culprit coronary artery disease - Patent proximal to mid LAD stent, 40% mid after stent, subtotal apical LAD occlusion Patent proximal ramus stent, 70% mid ramus Patent OM2 stent with 60 to 70% stenosis after stent Distal RCA 70% stenosis, 90% stenosis at bifurcation into PDA 3. Normal intracardiac filling pressure 4. Successful PCI of proximal RCA with single drug-eluting stent (3.0 x 15 mm Flushing; postdilated with 3.5 NC). 5. Successful PCI of distal RCA into PDA with single drug-eluting stent (2.5 x 30 mm Flushing; postdilated with 2.75 NC). Recommendations: Admit to ICU for continued monitoring Loaded with clopidogrel 600 mg in Employment Coach Continue dual-antiplatelet therapy for at least 1 year. Trend troponins until peak, Check Echo Uptitrate beta-tonia/YANET as BP allows High-dose statin Consult cardiac Rehab Hemodynamics Rest Ao:: 101/56/76 Final Ao: 98/53/75 LV: 83/6 Recommendations Recommendations: PCI without planned CABG Specimens Specimens: None Radiation Exposure (mGy) 3364 Contrast (mls) 100 Anesthesia Moderate 8604-6553 Procedural Complication(s) None Disposition ICU I attest to the content of the Intraoperative Record and any orders documented therein. Any exceptions are noted below. [facility] Card Cath Procedure Codes Cardiac Catheterization Procedure 1: Cardiovascular Cath Procedures: 19970 Coronaries and LHC (+/-LV) Moderate Sedation Procedure 1: Sedation/Anesthesia: 19611 Mod Sedation by the same physician;Init15 Min Child Age 5 & Up Procedure 2: Sedation/Anesthesia: 13036 Mod Sedation by the same physician; Ea [id number] Minutes Stenting Procedure 1: Cardiovascular Stent Procedures: 64039 Perc transluminal revascularization of acute sub/total occl, aMI PG Care Time/CCT Total # of Minutes Spent Total Time Spent with Patient: Total time spent is greater than 50% in coordination of care (as documented) at patient's floor/unit and/or counseling patient:
[2022-03-31] MEDS ORDERED: SODIUM CHLORIDE 0.9% 1000ML 500 ML IV SCH (00:45)
--- NOTE | 2022-03-31 02:07 | Critical Care Consultation ---
Date of Consultation March 31, 2022 Assessment & Plan (1) Admitted to intensive care unit: Reason Critically Ill: 61-year-old male with acute inferior STEMI status post PTCI with EDGARD x2 to the RCA requiring close hemodynamic monitoring status post coronary intervention. NEURO - * CAM ICU: NEGATIVE CARDIAC/VASCULAR - * Acute Inferior STEMI s/p PTCI w/ EDGARD x2 to the RCA: * Chest pain free at this time. * Trend Trops * AM Echo * DAPT per cardiology * Continue ASCVD Rx per typical * Monitor on telemetry. RESPIRATORY - * No h/o pulmonary disease. * Saturating well on room air. GI/NUTRITION - * AHA/DM Diet RENAL/LYTES - * SAUD * IVF: NSS for a total of 500 mL - * No concerns at this time. ENDO - * DMII * BSGs per unit protocol. ISS --> gtt per unit policy. HEME - * Stable H&H ID - * No concerns for infectious contribution at this time. LINES/IV ACCESS - * PIVs x2 DVT PROPHYLAXIS - * Hold on chemoprophylaxis s/p Heparin administration in the lab systems analyst. Anticipate early ambulation. * SCDs I have personally spent 32 minutes of critical care time in the direct management of this patient. This is a life/limb threatening event. This includes time spent evaluating patient, direct bedside care, chart review, placing orders, interpretation of diagnostic studies, discussion with consultants, patient, and family members, as well as other required patient management activities. This time is exclusive of all separately billable procedures, and teaching time and separate from and in addition to any other critical care service time. Thank you for allowing us to participate in the care of this patient. Please refer to my attending physician's documentation for any further recommendations. (2) ST elevation myocardial infarction (STEMI) of inferior wall: (3) S/P PTCA (percutaneous transluminal coronary angioplasty): (4) S/P drug eluting coronary stent placement: (5) Hyperlipidemia: (6) DMII (diabetes mellitus, type 2): History of Present Illness Attending Physician: Fina Orellana MD History of Present Illness Patient is a 61-year-old male with a significant past medical history of coronary artery disease, hypertension, hyperlipidemia, and diabetes who presents to the emergency department with an abrupt onset of midsternal chest pain. Patient was noted to have an inferior STEMI on EKG. He was made a heart alert and taken emergently to the catheterization suite. Patient underwent PTCI with EDGARD x2 to the RCA. Patient had complete symptom resolved status post intervention. Upon evaluation in the ICU, the patient is awake, alert, and oriented. The patient denies any complaints of chest discomfort at this time. He reports that he was feeling lightheaded prior to resolved chest discomfort, however that has since subsided. The patient denies complaints of headaches, dizziness, lightheadedness, chest pain, palpitations, shortness of breath, pleuritic pain, nausea, vomiting, abdominal discomfort, or numbness/weakness to his extremities. Allergies Allergy/AdvReac Type Severity Reaction Status Date / Time morphine Allergy Severe RESPIRATORY Verified 03/30/22 22:45 DISTRESS Home Medications Medication Instructions Recorded Confirmed Type aspirin 81 mg tablet,delayed 81 mg PO DAILY 06/01/19 03/31/22 History release ibuprofen 200 mg tablet 400 - 600 mg PO DIRECTED PRN 06/01/19 03/31/22 History lisinopril 2.5 mg tablet 2.5 mg PO QAM 06/01/19 03/31/22 History rosuvastatin 40 mg tablet (Crestor) 40 mg PO HS 06/01/19 03/31/22 History vitamin B comp and C no.3 15 mg-10 1 cap PO DAILY 06/01/19 03/31/22 History mg-50 mg-5 mg-300 mg capsule cinnamon bark-chromium picolinate 1 cap PO DAILY 03/30/22 03/31/22 History 500 mg-100 mcg capsule metoprolol succinate 25 mg 25 mg PO DAILY 03/30/22 03/31/22 History tablet,extended release 24 hr nitroglycerin 0.4 mg sublingual 0.4 mg SUBLINGUAL DIRECTED PRN 03/30/22 03/31/22 History tablet (Nitrostat) sitagliptin 25 mg tablet (Januvia) 0 mg PO DAILY 03/30/22 03/31/22 History insulin detemir U-100 100 unit/mL 30 unit SUBCUT DAILY 03/31/22 03/31/22 History subcutaneous solution Patient History Medical History CAD (coronary artery disease) DMII (diabetes mellitus, type 2) Hyperlipidemia Surgical History History of cholecystectomy (07/11/13) Family History Mother Coronary heart disease Father Diabetes Social History Smoking Status: Former smoker Tobacco Type: Smokeless Tobacco (Dip or Chew) Do You Dip or Chew Tobacco: Yes; Hx Alcohol Use: Yes Alcohol type: hard liquor Hx Substance Use: No Preferred Language: Bahraini Beliefs That Will Affect Care: None Current Living Situation: Spouse Feels Safe at Home: Yes Safety Concerns: Feels Safe At This Time Review of Systems Review of Systems: A complete 10 point review of systems was reviewed with the patient with pertinent positives and negatives as per history of present illness. All else were negative. Physical Exam Physical Exam: VITAL SIGNS - Vital signs and nursing notes were reviewed. GENERAL - 61-year-old male appearing his stated age who is in no acute distress. Communicates well with provider and answers questions appropriately. HEAD - NC/AT. EYES - PERRL with EOMI bilaterally. Sclera anicteric. EARS - No deformities of external structures noted on gross examination bilaterally. NOSE - Midline and without cyanosis. MOUTH/OROPHARYNX - Without perioral cyanosis. Buccal mucosa pink and moist. NECK - Neck with FROM. Supple to palpation. LUNGS - Chest wall symmetric without accessory muscle use, intercostals retractions, or central cyanosis. Normal vesicular breath sounds CTA B/L. No wheezes, rales, or rhonchi appreciated. CARDIAC - RRR with S1/S2. No murmur, rubs, or gallops appreciated. No reproducible tenderness to palpation appreciated over the anterior chest wall. ABDOMEN - Abdominal contour obese without pulsations or visible masses. BS norm oactive all four quadrants. No tenderness, palpable masses, hepatosplenomegaly, or ascites noted. EXTREMITIES - No clubbing or peripheral cyanosis. No pretibial edema present. +3/5 radial and dorsalis pedis pulses palpated throughout. +5/5 strength noted in UE/LE bilaterally. NEUROLOGIC - Cranial nerves II through XII grossly intact. Sensory intact to light touch throughout. PSYCH - A&Ox3 and cooperates fully with examiner. Pt is very pleasant and interacts well with examiner. Results & Data Results & Data ([facility]) Vital Signs (Past 12 Hours) Vital Signs Temp Pulse Pulse Resp BP BP Pulse Ox 03/31/22 01:45 82 21 94 03/31/22 01:37 36.5 C 78 18 110/69 99 03/31/22 01:30 83 20 130/71 95 03/31/22 01:15 78 20 99 03/31/22 01:00 79 20 133/75 95 03/31/22 00:45 78 18 99 03/31/22 00:43 77 12 99 03/31/22 00:42 110/69 03/31/22 00:21 76 03/30/22 22:45 93 H 25 H 134/80 100 03/30/22 22:32 79 19 145/77 H 100 03/30/22 22:19 36.8 C 20 101/55 L 100 Coding Level of Care Code Critical Care 1st 30-74 mins Diagnoses Admitted to intensive care unit Z78.9 ST elevation myocardial infarction (STEMI) of inferior wall I21.19 S/P PTCA (percutaneous transluminal coronary angioplasty) Z98.61 S/P drug eluting coronary stent placement Z95.5 Hyperlipidemia E78.5 DMII (diabetes mellitus, type 2) E11.9 Time Spent (min) 32
[2022-03-31] MEDS ORDERED: GLUCOSE 40% GEL 15 GM TUBE PO PRN ×2 (02:30→05:00)
[2022-03-31] MEDS ORDERED: DEXTROSE 50% 50 ML SYRINGE IV PRN ×2 (02:30→05:00)
[2022-03-31] MEDS ORDERED: GLUCAGON FOR INJ 1 MG VIAL SQ PRN ×2 (02:30→05:00)
[2022-03-31] MEDS ORDERED: PHARMACY GLYCEMIC MGMT CONSULT PRN ×2 (02:30→08:04)
[2022-03-31] MEDS ORDERED: GLUCOSE 10 TABS/TUBE PO PRN ×2 (02:30→05:00)
[2022-03-31] MEDS ORDERED: CARBOHYDRATES FOR HYPOGLYCEMIA PO PRN ×2 (02:30→05:00)
[2022-03-31] MEDS: INSULIN ASPART PER UNIT SC SCH ×5 (03:43→20:37)
--- NOTE | 2022-03-31 05:05 | History & Physical Report ---
Date of Service March 31, 2022 Assessment & Plan (1) STEMI (ST elevation myocardial infarction): Plan: ACute occlusion RCA s/p two stents. Cont medical management with ASA 81mg daily, Plavix 75mg daily, Metoprolol 25mg PO BID, lisinopril 5mg PO daily, and Crestor. He remains chest pain free post procedure. Will need to continue working on optimizing DMII care. (2) Hyperlipidemia: Plan: Cont crestor per home medications. (3) DMII (diabetes mellitus, type 2): Plan: Basal/bolus insulin while in the hospital. Goes to [facility] and gets free meds. Unable to pay for Novolog to control his prandial sugars. Continues on sitaglitptin (4) Toe ulcer, right: Plan: Possibly related to DMII-wound care nurse consulted. (5) DVT prophylaxis: Plan: Lovenox Full Code Dispo-to home when cleared by cardiology DO Melly Neville Hospitalist Admission and Anticipated Discharge Date Admission Date: March 31, 2022 History of Present Illness Chief Complaint: chest pain Primary Care Provider: [facility] 61 yo diabetic man with a h/o cardiac stents presents with acute chest pain. Pain was central and radiating into his back and down both shoulders and to his jaw. 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 There was ST elevation in the inferior leads with some ST depression/TWI seen laterally consistent with w an inferoposterior OK. Troponin was 438. He was taken to the mini lab operator and received two additional stents in the RCA for acute occlusions. Some residual cardiac disease remains. He remains chest pain-free post-procedure. Notably, he is taking long acting levemir and sitagliptin, but needs Novolog, which he cannot afford. Uncontrolled DMII may be contributing here. All his medications are free through [facility]. Allergies Allergy/AdvReac Type Severity Reaction Status Date / Time morphine Allergy Severe RESPIRATORY Verified 03/30/22 22:45 DISTRESS Home Medications Medication Instructions Recorded Confirmed Type aspirin 81 mg tablet,delayed 81 mg PO DAILY 06/01/19 03/31/22 History release ibuprofen 200 mg tablet 400 - 600 mg PO DIRECTED PRN 06/01/19 03/31/22 History lisinopril 2.5 mg tablet 2.5 mg PO QAM 06/01/19 03/31/22 History rosuvastatin 40 mg tablet (Crestor) 40 mg PO HS 06/01/19 03/31/22 History vitamin B comp and C no.3 15 mg-10 1 cap PO DAILY 06/01/19 03/31/22 History mg-50 mg-5 mg-300 mg capsule cinnamon bark-chromium picolinate 1 cap PO DAILY 03/30/22 03/31/22 History 500 mg-100 mcg capsule metoprolol succinate 25 mg 25 mg PO DAILY 03/30/22 03/31/22 History tablet,extended release 24 hr nitroglycerin 0.4 mg sublingual 0.4 mg SUBLINGUAL DIRECTED PRN 03/30/22 03/31/22 History tablet (Nitrostat) sitagliptin 25 mg tablet (Januvia) 0 mg PO DAILY 03/30/22 03/31/22 History insulin detemir U-100 100 unit/mL 30 unit SUBCUT DAILY 03/31/22 03/31/22 History subcutaneous solution Past Med/Surg History Medical History CAD (coronary artery disease) DMII (diabetes mellitus, type 2) Hyperlipidemia Surgical History History of cholecystectomy (07/11/13) Family History (Updated 03/31/22 @ 05:17 by Delma Azul DO) Mother Coronary heart disease Father Diabetes Social History Smoking Status: Former smoker Tobacco Type: Smokeless Tobacco (Dip or Chew) Do You Dip or Chew Tobacco: Yes; Hx Alcohol Use: Yes Alcohol type: hard liquor Hx Substance Use: No Preferred Language: Macanese Beliefs That Will Affect Care: None Current Living Situation: Spouse Feels Safe at Home: Yes Safety Concerns: Feels Safe At This Time Review of Systems Review of Systems: All systems were reviewed and negative except as indicated on HIP above. Physical Exam Physical Exam: CONSTITUTIONAL: WNWD, vitals as above, NAD EYES: normal conjunctivae, no scleral icterus, ENT: external ear and nose normal, MMM NECK: trachea midline RESPIRATORY: clear to auscultation bilaterally, no crackles, rales or wheezes, normal respiratory effort CARDIOVASCULAR: regular rate and rhythm, S1 and 2 heard without murmurs, gallops or rubs, no JVD, no peripheral edema CHEST: inspection of chest was normal GASTROINTESTINAL: soft, nontender, ND, no guarding MUSCULOSKELETAL: strength 5/5 throughout, head is normocephalic and atraumatic, neck supple, normal palpation of chest wall without tenderness SKIN: warm and dry, TR band in place on right wrist. R hand is warm and well perfused. Quarter sized ulceration on right great toe per nurse. NEUROLOGIC: CN 2-12 grossly intact, no sensory deficit, normal cognition, normal speech, no tremor PSYCHIATRIC: alert cooperative and oriented to person, place and time. Results & Data Results & Data ([facility] [place]) Vital Signs (Past 12 Hours) Vital Signs Temp Pulse Pulse Resp BP BP Pulse Ox 03/31/22 02:45 73 19 94 03/31/22 02:30 74 18 114/70 93 03/31/22 02:15 75 20 91 03/31/22 02:00 78 18 124/72 94 03/31/22 01:45 82 21 94 03/31/22 01:37 36.5 C 78 18 110/69 99 03/31/22 01:30 83 20 130/71 95 03/31/22 01:15 78 20 99 03/31/22 01:00 79 20 133/75 95 03/31/22 00:45 78 18 99 03/31/22 00:43 77 12 99 03/31/22 00:42 110/69 03/31/22 00:21 76 03/30/22 22:45 93 H 25 H 134/80 100 03/30/22 22:32 79 19 145/77 H 100 03/30/22 22:19 36.8 C 20 101/55 L 100 Laboratory Results Short CBC 03/30/22 Range/Units 22:27 WBC 7.34 (4.8-10.8) K/uL Hgb 13.1 L (14.0-18.0) g/dL Hct 39.6 L (42-52) % Plt Count 311 (130-400) K/uL BMP 03/30/22 22:27 Sodium 135 L Potassium 4.1 Chloride 103 Carbon Dioxide 22 BUN 33 H Creatinine 1.53 H Glucose 246 H Calcium 8.7 Liver Function 03/30/22 Range/Units 22:27 Total Bilirubin 0.5 (0.2-1.0) mg/dl AST 21 (13-39) U/L ALT 18 (7-52) U/L Alkaline Phosphatase 80 (34-104) U/L Albumin 4.2 (3.4-5.0) gm/dl Medications Administered Current Inpatient Medications Acetaminophen (Acetaminophen 325 Mg Tab) 650 mg PO Q4H PRN PRN Reason: MILD Pain (Scale 1,2,3) Stop: 04/30/22 00:14 Aspirin (Aspirin 81 Mg Ectab) [facility] [place] Stop: 04/30/22 08:59 Clopidogrel Bisulfate (Clopidogrel Bisulfate 75 Mg Tab) 75 mg PO [facility] Stop: 04/30/22 08:59 Dextrose (Dextrose 50% 50 Ml Syringe) 25 - 50 ml IV UD PRN; Protocol PRN Reason: Hypoglycemia Protocol Stop: 04/30/22 02:29 Glucagon (Glucagon For Inj 1 Mg Vial) 1 mg SQ UD PRN; Protocol PRN Reason: Hypoglycemia Protocol Stop: 04/30/22 02:29 Glucose (Glucose 10 Tabs/Tube) 4 - 8 tabs PO UD PRN; Protocol PRN Reason: Hypoglycemia Protocol Stop: 04/30/22 02:29 Glucose (Glucose 40% Gel 15 Gm Tube) 15 - 30 gm PO UD PRN; Protocol PRN Reason: Hypoglycemia Protocol Stop: 04/30/22 02:29 Sodium Chloride (Nss 1000ml) 500 mls @ 100 mls/hr IV .Q5H [facility] Stop: 03/31/22 05:44 Last Admin: 03/31/22 00:30 Dose: 100 mls/hr Documented by: Insulin Aspart (Insulin Aspart Per Unit) 0 units SC ACHS [facility] Stop: 04/30/22 02:44 Last Admin: 03/31/22 03:43 Dose: 3 units Documented by: Insulin Glargine (Insulin Glargine Solostar 100 Units/Ml 3 Ml Pen) 10 units SC BID [facility] Stop: 04/30/22 08:59 Lisinopril (Lisinopril 5 Mg Tab) 5 mg PO QAM [facility] Stop: 04/30/22 08:59 Lisinopril (Lisinopril 2.5 Mg Tab) 2.5 mg PO QAM [facility] Stop: 04/30/22 08:59 Metoprolol Tartrate (Metoprolol Tartrate 25 Mg Tab) 25 mg PO BID [facility] Stop: 04/30/22 08:59 Miscellaneous ([facility] Protocol For Hyperglycemia) 1 ea N/A PRN PRN; Protocol PRN Reason: Hyperglycemia Protocol Stop: 04/02/22 00:19 Miscellaneous (Carbohydrates For Hypoglycemia ) 15 - 30 gm PO UD PRN PRN Reason: Hypoglycemia Protocol Stop: 04/30/22 02:29 Miscellaneous Information (Pharmacy Glycemic Mgmt Consult) 1 ea N/A UD PRN; Protocol PRN Reason: Consult Stop: 04/30/22 02:29 Ondansetron HCl (Ondansetron Inj 2 Mg/Ml 2 Ml Vial) 4 mg IV Q6H PRN PRN Reason: Nausea And Vomiting Stop: 04/30/22 00:14 Rosuvastatin Calcium (Rosuvastatin Calcium 20 Mg Tab) 40 mg PO HS [facility] Stop: 04/30/22 20:59
[2022-03-31 05:46] LABS: Basophils # (auto) 0.03 K/uL (0-0.2); Basophils % (auto) 0.5 %; Eosinophils # (auto) 0.21 K/uL (0-0.5); Eosinophils % (auto) 3.6 %; Hematocrit (blood only) 35.8 % (42-52); Hemoglobin 11.8 g/dL (14.0-18.0); Immature Granulocytes # (auto) 0.01 K/uL (0.00-0.02); Immature Granulocytes % (auto) 0.2 %; Lymphocytes # (auto) 2.18 K/uL (1.2-3.4); Lymphocytes % (auto) 37.7 %; Mean Corpuscular Hemoglobin 29.7 pg (25-34); Mean Corpuscular Volume 90.2 fL (80-100); Mean Platelet Volume 10.5 fL (7.4-10.4); Monocytes % (auto) 8.6 %; Neutrophils # (auto) 2.86 K/uL (1.4-6.5); Neutrophils % (auto) 49.4 %; Platelet Count 250 K/uL (130-400); RDW Coefficient of Variation 14.8 % (11.5-14.5); RDW Standard Deviation 49.4 fL (36.4-46.3); Red Blood Count 3.97 M/uL (4.7-6.1); White Blood Count 5.79 K/uL (4.8-10.8)
[2022-03-31 05:57] LABS: BUN Creatinine Ratio 27.4 (10-20); Est GFR (African American) 86.8 ml/min; Est GFR (Non-African American) 74.8 ml/min; Magnesium 1.8 mg/dl (1.7-2.4); Phosphorus 2.7 mg/dl (2.5-4.9); Potassium 3.7 mmol/L (3.5-5.1)
--- NOTE | 2022-03-31 06:56 | XRay Report ---
XR chest 1V portable HISTORY: 61 years-old Male Chest Pain acute atypical chest pain COMPARISON: Chest radiographs 07/11/2013 TECHNIQUE: Portable AP view of the chest FINDINGS: The cardiomediastinal and hilar silhouettes are within normal limits. Coronary arterial stents are no [place]. Atherosclerosis of the thoracic aorta. No pneumothorax or large pleural effusion. Mild subsegmen teddy bibasilar densities. Degenerative changes of the shoulders and spine. IMPRESSION: Mild subsegmental opacities are suggestive of probable atelectasis. A mild pneumonitis co uld appear similarly. ACT 112: Negative or not required by law. The above report was generated using voice recognition software. It may contain grammatical, syntax o r spelling errors. Electronically signed by: Quinn Campbell M.D. 03/31/2022 6:55 AM
[2022-03-31 07:21] LABS: Estimated Average Glucose 272 mg/dl; Hemoglobin A1C 11.1 % (4.5-5.6)
[2022-03-31] MEDS ORDERED: INSULIN ASPART PER UNIT SC SCH (07:30)
[2022-03-31] MEDS: CLOPIDOGREL BISULFATE 75 MG TAB PO SCH (07:36)
[2022-03-31] MEDS: ENOXAPARIN INJ 40 MG/0.4 ML SYR SQ SCH (07:36)
[2022-03-31] MEDS: ASPIRIN 81 MG ECTAB PO SCH (07:36)
[2022-03-31] MEDS: METOPROLOL TARTRATE 25 MG TAB PO SCH ×2 (07:39→20:36)
[2022-03-31] MEDS: lisinopril 5 MG TAB PO SCH (07:39)
[2022-03-31] MEDS ORDERED: lisinopril 2.5 MG TAB PO SCH (09:00)
[2022-03-31] MEDS ORDERED: INSULIN GLARGINE SOLOSTAR 100 UNITS/ML 3 ML PEN SC SCH ×2 (09:00)
[2022-03-31] MEDS: FENOFIBRATE NANOCRYSTALLIZED 145 MG TABLET PO SCH (09:12)
--- NOTE | 2022-03-31 09:30 | XCELERA ---
[id number]
[2022-03-31] MEDS ORDERED: POTASSIUM CHLORIDE CRTAB 20 MEQ TABCR PO ONE (10:30)
[2022-03-31] MEDS ORDERED: MAGNESIUM OXIDE 400 MG TAB PO ONE (10:30)
--- NOTE | 2022-03-31 11:15 | Cardiology Consultation ---
Date of Consultation March 31, 2022 Assessment & Plan (1) ST elevation myocardial infarction (STEMI) of inferior wall: (2) S/P drug eluting coronary stent placement: (3) Hyperlipidemia: (4) DMII (diabetes mellitus, type 2): I had a long discussion with the patient regarding the natural history and pathophysiology of coronary artery disease as pertains to his recent inferior STEMI s/p EDGARD x 2. Residual CAD managed medically at this time. Reviewed importance of compliance with cardiovascular medications, particularly dual antiplatelet therapy for a minimum of 1 year post myocardial infarction. Other evidence-based cardiovascular medications including high intensity statin, beta-tonia, and YANET inhibitor will be continued as previously ordered. Cardiac rehab referral placed. Discontinuation of all tobacco products advised. History of Present Illness Reason for Consultation: Inferior STEMI Requesting Physician: Dr. Azul Attending Physician: Fina Orellana MD History of Present Illness 61-year-old patient presented emergency department with chest discomfort. Diagnosed with inferior STEMI. Drug-eluting stent implanted to the proximal and distal RCA as noted below. Residual distal LAD occlusion, 70% mid ramus, and 60-70% OM2 stenosis noted. Patient is feeling well post procedure. No recurrent chest discomfort. Admits intermittent noncompliance with cardiovascular medications prior to presentation. Followed by the undersigned for several years due to history of chronic coronary disease. History of multivessel coronary disease diagnosed in 2012. At that time patient underwent drug-eluting stent placement x3 to the LAD, OM1, and ramus intermedius at [facility]. Review of resting 2D transthoracic echocardiogram demonstrates inferior and posterior hypokinesis with borderline reduced LV systolic function. No significant valvular pathology. Allergies Allergy/AdvReac Type Severity Reaction Status Date / Time morphine Allergy Severe RESPIRATORY Verified 03/30/22 22:45 DISTRESS Home Medications Medication Instructions Recorded Confirmed Type aspirin 81 mg tablet,delayed 81 mg PO DAILY 06/01/19 03/31/22 History release ibuprofen 200 mg tablet 400 - 600 mg PO DIRECTED PRN 06/01/19 03/31/22 History lisinopril 2.5 mg tablet 2.5 mg PO QAM 06/01/19 03/31/22 History rosuvastatin 40 mg tablet (Crestor) 40 mg PO HS 06/01/19 03/31/22 History vitamin B comp and C no.3 15 mg-10 1 cap PO DAILY 06/01/19 03/31/22 History mg-50 mg-5 mg-300 mg capsule cinnamon bark-chromium picolinate 1 cap PO DAILY 03/30/22 03/31/22 History 500 mg-100 mcg capsule metoprolol succinate 25 mg 25 mg PO DAILY 03/30/22 03/31/22 History tablet,extended release 24 hr nitroglycerin 0.4 mg sublingual 0.4 mg SUBLINGUAL DIRECTED PRN 03/30/22 03/31/22 History tablet (Nitrostat) sitagliptin 25 mg tablet (Januvia) 0 mg PO DAILY 03/30/22 03/31/22 History insulin detemir U-100 100 unit/mL 30 unit SUBCUT DAILY 03/31/22 03/31/22 History subcutaneous solution Patient History Medical History CAD (coronary artery disease) DMII (diabetes mellitus, type 2) Hyperlipidemia Surgical History History of cholecystectomy (07/11/13) Family History Mother Coronary heart disease Father Diabetes Social History Smoking Status: Former smoker Tobacco Type: Smokeless Tobacco (Dip or Chew) Do You Dip or Chew Tobacco: Yes; Hx Alcohol Use: Yes Alcohol type: hard liquor Hx Substance Use: No Preferred Language: Kazakh Beliefs That Will Affect Care: None Current Living Situation: Spouse Feels Safe at Home: Yes Safety Concerns: Feels Safe At This Time Review of Systems Review of Systems: All systems reviewed & are unremarkable except as noted in Subjective Physical Exam Constitutional: well developed and well nourished; no acute distress Respiratory: + respiratory distress; no labored breathing and no retractions Auscultation: no crackles, no rales, no rhonchi and no wheezes Cardiovascular: Rate/Rhythm: regular rate and regular rhythm Heart Sounds: normal S1 and normal S2; no murmur Vessels: radial pulses present; no JVD and no carotid bruit Gastrointestinal (Abdomen): Inspection/Auscultation: abdomen normal to inspection and normal bowel sounds; abdomen not distended Percussion/Palpation: abdomen soft; abdomen nontender, no guarding and abdomen not rigid Neurologic: CN's II-XI intact bilaterally and moves all extremities; no focal motor deficits Psychiatric: A+Ox3, euthymic affect Results & Data ([facility]) Vital Signs (Past 12 Hours) Vital Signs Temp Pulse Pulse Resp BP BP Pulse Ox 03/31/22 10:00 78 10 L 96/48 L 97 03/31/22 09:09 89 13 03/31/22 08:00 81 15 112/75 96 03/31/22 07:00 75 16 124/74 97 03/31/22 06:30 74 15 96 03/31/22 06:15 75 22 95 03/31/22 06:00 73 20 96 03/31/22 05:45 75 26 H 95 03/31/22 05:30 73 25 H 95 03/31/22 05:15 75 16 97 03/31/22 05:00 36.8 C 75 17 118/73 96 03/31/22 04:45 73 20 94 03/31/22 04:30 74 20 115/65 94 03/31/22 04:15 73 20 95 03/31/22 04:00 71 21 120/71 96 03/31/22 03:45 71 19 97 03/31/22 03:30 74 15 119/74 97 03/31/22 03:26 72 19 114/74 97 03/31/22 03:15 72 18 95 03/31/22 03:00 73 15 95 03/31/22 02:45 73 19 94 03/31/22 02:30 74 18 114/70 93 03/31/22 02:15 75 20 91 03/31/22 02:00 78 18 124/72 94 03/31/22 01:45 82 21 94 03/31/22 01:37 36.5 C 78 18 110/69 99 03/31/22 01:30 83 20 130/71 95 03/31/22 01:15 78 20 99 03/31/22 01:00 79 20 133/75 95 03/31/22 00:45 78 18 99 03/31/22 00:43 77 12 99 03/31/22 00:42 110/69 03/31/22 00:21 76 Diagnostic Findings Cardiac cath report (images personally reviewed) 03/31/2022: 1. Inferior STEMI/subtotal acute proximal RCA occlusion 2. Multivessel non-culprit coronary artery disease - Patent proximal to mid LAD stent, 40% mid after stent, subtotal apical LAD occlusion Patent proximal ramus stent, 70% mid ramus Patent OM2 stent with 60 to 70% stenosis after stent Distal RCA 70% stenosis, 90% stenosis at bifurcation into PDA 3. Normal intracardiac filling pressure 4. Successful PCI of proximal RCA with single drug-eluting stent (3.0 x 15 mm [place]; postdilated with 3.5 NC). 5. Successful PCI of distal RCA into PDA with single drug-eluting stent (2.5 x 30 mm [place]; postdilated with 2.75 NC).
--- NOTE | 2022-03-31 12:20 | Pharmacy Report ---
Pharmacy Glycemic Short Note 2 - Date of Service March 31, 2022 - Glycemic Short BSG Results (Last 24 hours): 03/30/22 03/31/22 03/31/22 22:27 03:26 05:03 Glucose 246 H 153 H POC Glucose 223 H 03/31/22 03/31/22 07:26 11:13 Glucose POC Glucose 128 H 157 H OUTPATIENT ANTIDIABETIC REGIMEN: * Levemir 30 units SQ qAM * Januvia (unsure of dose) * HbA1c = 11.1% (03/31/22) ASSESSMENT: * 61 yo M presented on 03/30/22 with chest pain. Found to have STEMI - now s/p PCI w/ 2 EDGARD to RCA. Patient does not have health insurance and acquires all meds for free from [facility]. Pharmacy has been consulted to assist with inpatient glycemic management. * Patient is ordered a T2DM diet. BSG post op was 223 mg/dL. Received 3 units of Novolog at that time. * Fasting BSG was 128 mg/dL - well controlled. * Will start Lantus based on reduction from home Levemir dose. Novolog will begin based on weight/stress of 2. PLAN FOR INPATIENT GLYCEMIC CONTROL: * Hold outpatient oral diabetes medications * Basal insulin * Lantus 20 units SQ qAM * Bolus insulin * NovoLog per scale ACHS or Q6hrs while NPO * Goal Range: Low 110 mg/dL - High 140 mg/dL * Correction Factor: 30 mg/dL/unit * Nutritional / Prandial insulin per carb ratio of 1 unit per 11 grams CHO consumed RECOMMENDATIONS FOR DISCHARGE: * HbA1c = 11.1% which is significantly above goal of less than 7% for this patient. * Patient will require basal insulin upon discharge. * Given ASCVD and HbA1c, patient would likely benefit from triple therapy with basal insulin, metformin and GLP-1 RA or SGLT2i.
--- NOTE | 2022-03-31 14:59 | Hospitalist Progress Note ---
Date of Service March 31, 2022 Assessment & Plan (1) STEMI (ST elevation myocardial infarction): Plan: Acute occlusion RCA s/p two stents. Cont medical management with ASA 81mg daily, Plavix 75mg daily, Metoprolol 25mg PO BID, lisinopril 5mg PO daily, and Crestor. Need ongoing risk factor reduction -TG elevated, Fenofibrate add -patient admits to intermittent medication non compliance--educated on importance of compliance -Educated on importance of chewing tobacco cessation (2) Hyperlipidemia: Plan: Cont crestor per home medications. Fenofibrate added (3) DMII (diabetes mellitus, type 2): Plan: HA1c 11.4% Glycemic pharmacist consulted (4) Toe ulcer, right: Plan: Possibly related to DMII-wound care nurse consulted. (5) DVT prophylaxis: Plan: Lovenox Full Code Admission and Anticipated Discharge Date Admission Date: March 31, 2022 Subjective Patient feels well. Denies chest pain or shortness of breath. Right wrist with no bleeding, numbness, pain Physical Exam Physical Exam: Pleasant, no acute distress, non toxic Respiratory: breathing comfortably on room air, no wheezing/rhonchi/rales Cardiovascular: regular rate and rhythm, no murmurs/rubs/gallops Gastrointestinal (Abdomen): soft, non tender Musculoskeletal: right wrist with no bleeding Neurologic: awake, alert, spontaneously moving extremities Results & Data Results & Data ([facility]) Vital Signs (Past 12 Hours) Vital Signs Temp Pulse Resp BP Pulse Ox 03/31/22 14:48 36.8 C 03/31/22 14:27 81 18 111/80 97 03/31/22 14:00 80 24 03/31/22 13:00 79 95/52 L 03/31/22 12:00 81 114/71 03/31/22 11:00 78 21 117/72 98 03/31/22 10:00 78 10 L 96/48 L 97 03/31/22 09:09 89 13 03/31/22 08:00 81 15 112/75 96 03/31/22 07:00 75 16 124/74 97 03/31/22 06:30 74 15 96 03/31/22 06:15 75 22 95 03/31/22 06:00 73 20 96 03/31/22 05:45 75 26 H 95 03/31/22 05:30 73 25 H 95 03/31/22 05:15 75 16 97 03/31/22 05:00 36.8 C 75 17 118/73 96 03/31/22 04:45 73 20 94 03/31/22 04:30 74 20 115/65 94 03/31/22 04:15 73 20 95 03/31/22 04:00 71 21 120/71 96 03/31/22 03:45 71 19 97 03/31/22 03:30 74 15 119/74 97 03/31/22 03:26 72 19 114/74 97 03/31/22 03:15 72 18 95 03/31/22 03:00 73 15 95 Laboratory Results Short CBC 03/30/22 03/31/22 Range/Units 22:27 05:03 WBC 7.34 5.79 (4.8-10.8) K/uL Hgb 13.1 L 11.8 L (14.0-18.0) g/dL Hct 39.6 L 35.8 L (42-52) % Plt Count 311 250 (130-400) K/uL BMP 03/30/22 03/31/22 22:27 05:03 Sodium 135 L 137 Potassium 4.1 3.7 Chloride 103 109 H Carbon Dioxide 22 22 BUN 33 H 29 H Creatinine 1.53 H 1.06 D Glucose 246 H 153 H Calcium 8.7 8.0 L Liver Function 03/30/22 Range/Units 22:27 Total Bilirubin 0.5 (0.2-1.0) mg/dl AST 21 (13-39) U/L ALT 18 (7-52) U/L Alkaline Phosphatase 80 (34-104) U/L Albumin 4.2 (3.4-5.0) gm/dl Medications Administered Current Inpatient Medications Acetaminophen (Acetaminophen 325 Mg Tab) 650 mg PO Q4H PRN PRN Reason: MILD Pain (Scale 1,2,3) Stop: 04/30/22 00:14 Aspirin (Aspirin 81 Mg Ectab) 81 mg PO [facility] Stop: 04/30/22 08:59 Last Admin: 03/31/22 07:36 Dose: 81 mg Documented by: Clopidogrel Bisulfate (Clopidogrel Bisulfate 75 Mg Tab) 75 mg PO [facility] Stop: 04/30/22 08:59 Last Admin: 03/31/22 07:36 Dose: 75 mg Documented by: Dextrose (Dextrose 50% 50 Ml Syringe) 25 - 50 ml IV UD PRN; Protocol PRN Reason: Hypoglycemia Protocol Stop: 04/30/22 02:29 Enoxaparin Sodium (Enoxaparin Inj 40 Mg/0.4 Ml Syr) 40 mg SQ QAM [facility] Stop: 04/30/22 08:59 Last Admin: 03/31/22 07:36 Dose: 40 mg Documented by: Fenofibrate (Fenofibrate Nanocrystallized 145 Mg Tablet) 145 mg PO QAM [facility] Stop: 04/30/22 08:59 Last Admin: 03/31/22 09:12 Dose: 145 mg Documented by: Glucagon (Glucagon For Inj 1 Mg Vial) 1 mg SQ UD PRN; Protocol PRN Reason: Hypoglycemia Protocol Stop: 04/30/22 02:29 Glucose (Glucose 10 Tabs/Tube) 4 - 8 tabs PO UD PRN; Protocol PRN Reason: Hypoglycemia Protocol Stop: 04/30/22 02:29 Glucose (Glucose 40% Gel 15 Gm Tube) 15 - 30 gm PO UD PRN; Protocol PRN Reason: Hypoglycemia Protocol Stop: 04/30/22 02:29 Insulin Aspart (Insulin Aspart Per Unit) 0 units SC ACHS [facility] Stop: 04/30/22 02:44 Last Admin: 03/31/22 11:45 Dose: 4 units Documented by: Insulin Glargine (Insulin Glargine Solostar 100 Units/Ml 3 Ml Pen) 20 units SC DAILY [facility] Stop: 04/30/22 08:59 Last Admin: 03/31/22 07:40 Dose: 20 units Documented by: Lisinopril (Lisinopril 5 Mg Tab) 5 mg PO QAM [facility] Stop: 04/30/22 08:59 Last Admin: 03/31/22 07:39 Dose: 5 mg Documented by: Metoprolol Tartrate (Metoprolol Tartrate 25 Mg Tab) 25 mg PO BID [facility] Stop: 04/30/22 08:59 Last Admin: 03/31/22 07:39 Dose: 25 mg Documented by: Miscellaneous (Carbohydrates For Hypoglycemia ) 15 - 30 gm PO UD PRN PRN Reason: Hypoglycemia Protocol Stop: 04/30/22 02:29 Miscellaneous Information (Pharmacy Glycemic Mgmt Consult) 1 ea N/A UD PRN; Protocol PRN Reason: Consult Stop: 04/30/22 02:29 Ondansetron HCl (Ondansetron Inj 2 Mg/Ml 2 Ml Vial) 4 mg IV Q6H PRN PRN Reason: Nausea And Vomiting Stop: 04/30/22 00:14 Rosuvastatin Calcium (Rosuvastatin Calcium 20 Mg Tab) 40 mg PO HS [facility] Stop: 04/30/22 20:59
[2022-03-31] MEDS ORDERED: ROSUVASTATIN CALCIUM 20 MG TAB PO SCH (21:00)
[2022-04-01 07:27] LABS: Basophils # (auto) 0.04 K/uL (0-0.2); Basophils % (auto) 0.8 %; Eosinophils # (auto) 0.26 K/uL (0-0.5); Eosinophils % (auto) 5.5 %; Hematocrit (blood only) 33.9 % (42-52); Hemoglobin 10.9 g/dL (14.0-18.0); Immature Granulocytes # (auto) 0.01 K/uL (0.00-0.02); Immature Granulocytes % (auto) 0.2 %; Lymphocytes # (auto) 2.12 K/uL (1.2-3.4); Lymphocytes % (auto) 44.4 %; Mean Corpuscular Hemoglobin 29.5 pg (25-34); Mean Corpuscular Hgb Conc 32.2 g/dL (32-36); Mean Corpuscular Volume 91.6 fL (80-100); Mean Platelet Volume 10.9 fL (7.4-10.4); Monocytes # (auto) 0.46 K/uL (0.11-0.59); Monocytes % (auto) 9.6 %; Neutrophils # (auto) 1.88 K/uL (1.4-6.5); Neutrophils % (auto) 39.5 %; Platelet Count 228 K/uL (130-400); RDW Coefficient of Variation 15.3 % (11.5-14.5); RDW Standard Deviation 51.5 fL (36.4-46.3); White Blood Count 4.77 K/uL (4.8-10.8)
[2022-04-01 07:38] LABS: BUN Creatinine Ratio 21.9 (10-20); Creatinine Clr Calc Pharmacy 70.6 ml/min; Est GFR (African American) 79.4 ml/min; Est GFR (Non-African American) 68.5 ml/min; Potassium 4.3 mmol/L (3.5-5.1)
[2022-04-01] MEDS: ASPIRIN 81 MG ECTAB PO SCH (08:55)
[2022-04-01] MEDS: METOPROLOL TARTRATE 25 MG TAB PO SCH (08:55)
[2022-04-01] MEDS: CLOPIDOGREL BISULFATE 75 MG TAB PO SCH (08:56)
[2022-04-01] MEDS: FENOFIBRATE NANOCRYSTALLIZED 145 MG TABLET PO SCH (08:56)
[2022-04-01] MEDS: lisinopril 5 MG TAB PO SCH (08:56)
[2022-04-01] MEDS: ENOXAPARIN INJ 40 MG/0.4 ML SYR SQ SCH (08:57)
[2022-04-01] MEDS ORDERED: INSULIN GLARGINE SOLOSTAR 100 UNITS/ML 3 ML PEN SC SCH (09:00)
[2022-04-01] MEDS: INSULIN ASPART PER UNIT SC SCH ×2 (09:34→12:14)
--- NOTE | 2022-04-01 10:15 | Pharmacy Report ---
Pharmacy Glycemic Short Note 2 - Date of Service April 01, 2022 - Glycemic Short BSG Results (Last 24 hours): 03/31/22 03/31/22 03/31/22 11:13 15:58 20:14 Glucose POC Glucose 157 H 176 H 249 H 04/01/22 04/01/22 06:42 07:14 Glucose 94 POC Glucose 101 H OUTPATIENT ANTIDIABETIC REGIMEN: * Levemir 30 units SQ qAM * Januvia (unsure of dose) * HbA1c = 11.1% (03/31/22) ASSESSMENT: 04/01: * Juan Antonio received 40 units of insulin yesterday (20 units basal + 20 units bolus) * Consistent trend upward in postprandial BSGs yesterday however. Will tighten Novolog parameters today to account for this. * Fasting BSG was 101 mg/dL this AM - controlled but below goal. Will reduce Lantus this AM. 03/31: * 61 yo M presented on 03/30/22 with chest pain. Found to have STEMI - now s/p PCI w/ 2 EDGARD to RCA. Patient does not have health insurance and acquires all meds for free from [facility]. Pharmacy has been consulted to assist with inpatient glycemic management. * Patient is ordered a T2DM diet. BSG post op was 223 mg/dL. Received 3 units of Novolog at that time. * Fasting BSG was 128 mg/dL - well controlled. * Will start Lantus based on reduction from home Levemir dose. Novolog will begin based on weight/stress of 2. PLAN FOR INPATIENT GLYCEMIC CONTROL: * Hold outpatient oral diabetes medications * Basal insulin * Lantus 16 units SQ qAM * Bolus insulin * NovoLog per scale ACHS or Q6hrs while NPO * Goal Range: Low 110 mg/dL - High 140 mg/dL * Correction Factor: 25 mg/dL/unit * Nutritional / Prandial insulin per carb ratio of 1 unit per 8 grams CHO consumed RECOMMENDATIONS FOR DISCHARGE: * HbA1c = 11.1% which is significantly above goal of less than 7% for this patient. * Patient will require basal insulin upon discharge. * Given ASCVD and HbA1c, patient would likely benefit from triple therapy with basal insulin, metformin and GLP-1 RA or SGLT2i. * 04/01 update: per CDE's note, patient is resistant to any changes in his outpatient antidiabetic regimen.
--- NOTE | 2022-04-01 10:25 | Electrocardiogram Report ---
Test Reason : Blood Pressure : / mmHG Vent. Rate : 066 BPM Atrial Rate : 156 BPM P-R Int : 000 ms QRS Dur : 090 ms QT Int : 396 ms P-R-T Axes : 000 047 079 degrees QTc Int : 415 ms sinus arrhythmia with a competing junctional pacemaker ST elevation consider inferior injury or acute infarct ACUTE [place] / STEMI Consider right ventricular involvement in acute inferior infarct Abnormal ECG When compared with ECG of 03-DEC-2014 13:37, ST elevation now present in Inferior leads ST now depressed in Anterolateral leads Confirmed by Franki Wooten ([id number]) on 04/01/2022 10:25:25 AM Referred By: Maco Avelar Confirmed By:Franki Wooten
--- NOTE | 2022-04-01 10:26 | Electrocardiogram Report ---
Test Reason : Blood Pressure : / mmHG Vent. Rate : 091 BPM Atrial Rate : 091 BPM P-R Int : 160 ms QRS Dur : 092 ms QT Int : 356 ms P-R-T Axes : 058 029 039 degrees QTc Int : 437 ms Normal sinus rhythm Normal ECG When compared with ECG of 30-MAR-2022 22:20, (unconfirmed) HR has increased ST no longer elevated in Inferior leads ST no longer depressed in Anterior leads Confirmed by Franki Wooten ([id number]) on 04/01/2022 10:25:53 AM Referred By: Maco Avelar Confirmed By:Franki Wooten
--- NOTE | 2022-04-01 10:27 | Electrocardiogram Report ---
Test Reason : Blood Pressure : / mmHG Vent. Rate : 077 BPM Atrial Rate : 077 BPM P-R Int : 172 ms QRS Dur : 084 ms QT Int : 378 ms P-R-T Axes : 069 001 061 degrees QTc Int : 427 ms Normal sinus rhythm Normal ECG When compared with ECG of 30-MAR-2022 22:36, (unconfirmed) No significant change was found Confirmed by Franki Wooten ([id number]) on 04/01/2022 10:26:54 AM Referred By: Maco Avelar Confirmed By:Franki Wooten
--- NOTE | 2022-04-01 10:29 | Electrocardiogram Report ---
Test Reason : Blood Pressure : / mmHG Vent. Rate : 073 BPM Atrial Rate : 073 BPM P-R Int : 182 ms QRS Dur : 088 ms QT Int : 374 ms P-R-T Axes : 055 -23 033 degrees QTc Int : 412 ms Normal sinus rhythm Minimal voltage criteria for LVH, may be normal variant Borderline ECG When compared with ECG of 31-MAR-2022 00:39, (unconfirmed) No significant change was found Confirmed by Franki Wooten ([id number]) on 04/01/2022 10:28:55 AM Referred By: Maco Avelar Confirmed By:Franki Wooten
--- NOTE | 2022-04-01 14:23 | Cardiology Progress Note ---
Date of Service April 01, 2022 Assessment & Plan (1) ST elevation myocardial infarction (STEMI) of inferior wall: (2) S/P drug eluting coronary stent placement: (3) Hyperlipidemia: (4) DMII (diabetes mellitus, type 2): Plan: Results of cardiac catheterization and implications of recent drug-eluting stent implantation discussed. Reviewed importance of compliance with cardiovascular medications, particularly dual antiplatelet therapy for a minimum of 1 year post myocardial infarction. Other evidence-based cardiovascular medications including high intensity statin, beta-tonia, and YANET inhibitor will be continued as previously ordered. Cardiac rehab referral placed. Discontinuation of all tobacco products advised. Post cardiac catheterization activity restrictions listed below. Outpatient cardiology follow-up in 1-2 weeks. ACTIVITY RECOMMENDATIONS: It is common to feel weak and fatigue for a few days. * Do not drive or operate any motorized equipment for the next three days. * Limit stair usage (2 or 3 trips a day only) for the next three days. * Do not lift anything heavier than 10 pounds for the next three days. * Do not engage in vigorous exercise or any sports for the next five days. * You may shower the day after your procedure, but do not immerse the area for three days. Cleanse the site gently with soap and water. SPECIAL CARE INSTRUCTIONS: * You may replace the pressure dressing or band-aid the morning after the procedure. * After your procedure, it is normal to have a small bruise or small lump at the site. Examine your site daily for any change in the bruise or lump, redness, swelling, drainage or numbness. Notify your doctor if any change. BLEEDING: * If there is a small amount of bleeding at the site, lie down and apply firm pressure with a clean cloth for ten minutes. When the bleeding stops, lie quietly keeping the procedure limb straight for six hours. Notify your doctor as soon as possible. * If the bleeding does not stop after ten minutes or if there is a large amount of bleeding or spurting, call 911 immediately. Continue to lie down and hold firm pressure until help arrives. SKIN IRRITATION: * You may experience some redness and/or swelling in the area where radiation was administered. If any skin irritation occurs, please contact your family physician. . Admission and Anticipated Discharge Date Admission Date: March 31, 2022 Subjective Patient seen and examined the bedside. No recurrent chest discomfort since cardiac cath. Denies shortness of breath or palpitations. No dysrhythmias on telemetry. Blood pressure running borderline hypotensive although he remains asymptomatic. Tolerating medications listed below. Requesting discharge if possible. Review of Systems Review of Systems: All systems reviewed & are unremarkable except as noted in Subjective Physical Exam Constitutional: well developed and well nourished; no acute distress Respiratory: + respiratory distress; no labored breathing and no retractions Auscultation: no crackles, no rales, no rhonchi and no wheezes Cardiovascular: Rate/Rhythm: regular rate and regular rhythm Heart Sounds: normal S1 and normal S2; no murmur Vessels: radial pulses present; no JVD and no carotid bruit Gastrointestinal (Abdomen): Inspection/Auscultation: abdomen normal to inspection and normal bowel sounds; abdomen not distended Percussion/Palpation: abdomen soft; abdomen nontender, no guarding and abdomen not rigid Neurologic: CN's II-XI intact bilaterally and moves all extremities; no focal motor deficits Psychiatric: A+Ox3, euthymic affect Results & Data ([facility]) Vital Signs (Past 12 Hours) Vital Signs Temp Pulse Pulse Resp BP Pulse Ox 04/01/22 11:36 36.8 C 70 18 98/61 L 96 04/01/22 08:37 70 04/01/22 07:20 36.9 C 69 18 103/68 97 04/01/22 03:33 36.8 C 67 18 105/60 96
--- NOTE | 2022-04-01 15:02 | Discharge Summary ---
Date of Service April 01, 2022 Admission HPI Per Admitting Provider 61 yo diabetic man with a h/o cardiac stents presents with acute chest pain. Pain was central and radiating into his back and down both shoulders and to his jaw. 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 There was ST elevation in the inferior leads with some ST depression/TWI seen laterally consistent with w an inferoposterior RI. Troponin was 438. [facility] and received two additional stents in the RCA for acute occlusions. Some residual cardiac disease remains. He remains chest pain-free post-procedure. Notably, he is taking long acting levemir and sitagliptin, but needs Novolog, which he cannot afford. Uncontrolled DMII may be contributing here. All his medications are free through [facility]. Principal Diagnosis STEMI Tobacco Use Poorly controlled DM Hypertriglyceridemia Intermittent medication non compliance Discharge Exam Pleasant, no acute distress, jovial Respiratory breathing comfortably on room air, no wheezing/rhonchi/rales Cardiovascular regular rate and rhythm, no murmurs/rubs/gallops Gastrointestinal (Abdomen) soft, non tender, non distended Musculoskeletal no edema, right wrist with no bruising/bleeding Discharge Data Allergies Allergy/AdvReac Type Severity Reaction Status Date / Time morphine Allergy Severe RESPIRATORY Verified 03/30/22 22:45 DISTRESS Consultations 03/30/22 22:39 ED Decision to Admit Stat 03/31/22 00:18 Consult Cardiac Rehabilitation Routine 03/31/22 00:21 Consult Reservoir Engineering Manager Routine 03/31/22 00:53 Consult Cardiology Routine Procedures Performed Operation Date: 03/30/22 22:45 Actual Procedures p Aspiration/PCI w/EDGARD for Stemi - Maco Avelar MD s Cineradiography w/Routine Exam - Maco Avelar MD p Cath, Left with Cors and Vent - Maco Avelar MD Ordered Studies 03/30/22 22:34 CL Cath Imgs for PACS use only Stat Diabetes Follow up Diabetes Follow-up Needed for HgbA1c >9% Hospital Course (1) STEMI (ST elevation myocardial infarction): Acute occlusion RCA s/p two stents. He was continued on aspirin 81mg daily, Plavix 75mg daily added, Metoprolol increased to 25mg BID, Lisinopril increased to 5mg daily, continued on Crestor 40mg daily Need ongoing risk factor reduction -Triglyceride elevated, Fenofibrate add -patient admits to intermittent medication non compliance--educated on importance of compliance -Educated on importance of complete tobacco product cessation (2) Hyperlipidemia: Already on Crestor Fenofibrate added (3) DMII (diabetes mellitus, type 2): HA1c 11.4% Needs better glycemic control. Patient advised to adhere to carb controlled diet and follow up with his PCP (4) Toe ulcer, right: Present on admission (5) DVT prophylaxis: Patient discharged home in stable condition. Discharge instructions were provided him. His prescriptions were faxed to [facility] and he was also provided a copy. Total Time Total Time Spent Total Time Spent (In Minutes): 35 Discharge Plan Discharge Items Patient Disposition: Home - Self-Care Reason For Visit: STEMI Discharge Diagnosis: STEMI Current tobacco use Hypertriglyceridemia Intermittent medication non compliance Condition on Discharge: Fair Activity: As commented below Non-emergency contact: Primary Care Provider and Mine Shifter [facility] - Hamzah Rankin DO [Mine Shifter] - Renetta Attending Provider Instructions: Please take your medications as prescribed 100 % abstain from all tobacco products Renetta Robot Technician Provider Instructions: ACTIVITY RECOMMENDATIONS: It is common to feel weak and fatigue for a few days. * Do not drive or operate any motorized equipment for the next three days. * Limit stair usage (2 or 3 trips a day only) for the next three days. * Do not lift anything heavier than 10 pounds for the next three days. * Do not engage in vigorous exercise or any sports for the next five days. * You may shower the day after your procedure, butdo not immerse the area for three days. Cleanse the site gently with soap and water. SPECIAL CARE INSTRUCTIONS: * You may replace the pressure dressing or band-aid the morning after the procedure. * After your procedure, it is normal to have a small bruise or small lump at the site.Examine your site dailyfor any change in the bruise or lump, redness, swelling, drainage or numbness. Notify your doctor if any change. BLEEDING: * If there is a small amount of bleeding at the site, lie down and apply firm pressure with a clean cloth for ten minutes. When the bleeding stops, lie quietly keeping the procedure limb straight for six hours. Notify your doctor as soon as possible. *If the bleeding does not stop after ten minutes or if there is a large amount of bleeding or spurting, call 911 immediately.Continue to lie down and hold firm pressure until help arrives. SKIN IRRITATION: * You may experience some redness and/or swelling in the area where radiation was administered. If any skin irritation occurs, please contact your family physician. Pending Studies at Discharge: No Stand-Alone Forms: My [facility], Smoking Cessation Medications and DC Order Prescriptions: New clopidogrel [Plavix] 75 mg tablet 75 mg PO DAILY Qty: 90 RF: 1 fenofibrate 150 mg capsule 150 mg PO DAILY Qty: 90 RF: 0 lisinopril 5 mg tablet 5 mg PO DAILY Qty: 30 RF: 3 metoprolol tartrate 25 mg tablet 25 mg PO BID Qty: 60 RF: 3 Continued aspirin 81 mg Tablet,Delayed Release (Dr/Ec) 81 mg PO DAILY RF: 0 rosuvastatin [Crestor] 40 mg Tablet 40 mg PO HS RF: 0 vitamin B comp and C no.3 53-89-91-5-300 mg Capsule 1 cap PO DAILY RF: 0 nitroglycerin [Nitrostat] 0.4 mg Tablet, Sublingual 0.4 mg sublingual DIRECTED PRN (Reason: Chest Pain) RF: 0 Januvia 25 mg Tablet 0 mg PO DAILY RF: 0 cinnamon bark-chromium picolin 500-100 mg-mcg Capsule 1 cap PO DAILY RF: 0 insulin detemir U-100 100 unit/mL Solution 30 unit SUBCUT DAILY RF: 0 Discontinued ibuprofen 200 mg Tablet 400 - 600 mg PO DIRECTED PRN (Reason: Pain) RF: 0 lisinopril 2.5 mg Tablet 2.5 mg PO QAM RF: 0 metoprolol succinate 25 mg Tablet Extended Release 24 Hr 25 mg PO DAILY RF: 0 Discharge Orders: Discharge Order (Routine); Ordered 04/01/22 Ordered By: Fina Chen/Other Patient Handouts: Diabetes and Heart Disease, Cholesterol Lifestyle Changes, Heart Attack Dc Admission Data Admit Date/Time: 03/31/22 00:21 Attending Provider: Orellana,Hu-Thi Admit Provider: Maco Avelar [facility] Other Providers: Delma Azul ; Km Lucero ; Hamzah Rankin
== END 2022-04-01 16:53 | disposition home or self-care (01) | DRG 247 ==
LOC: ED 22:15 → CC 23:19 → 1E 03-31 00:21 → SUATTDRO 03-31 00:21 → 2S 03-31 16:13

== ENCOUNTER 2025-05-14 17:05 | Inpatient (IN) ==
--- NOTE | 2025-05-14 17:37 | Emergency Department Note ---
History of Present Illness General Chief complaint: Infection, Wound Stated complaint: INFECTION Time Seen by Provider: 05/14/25 17:24 History of Present Illness Maximum Pain Intensity: 1 This is a 64-year-old male that presents to the emergency department via private vehicle with complaints of "foot wounds". The patient notes over the past month he has had a wound to the distal aspect of the right first toe and also wound to the right lateral foot. He believes that he stepped on an object causing a puncture wound to the right lateral foot and also notes history of injury to the right first toe when he was a child. He does note history of type 2 diabetes. He denies any fevers but does have chills. No nausea or vomiting. Patient has been applying a silver wound gel as well as an antibiotic limited included lidocaine to the wounds. He does bandage them. He does note some intermittent pain to the wounds. Home Medications Medication Instructions Recorded Confirmed Type aspirin 81 mg tablet,delayed 81 mg PO DAILY 06/01/19 05/14/25 History release vitamin B comp and C no.3 15 mg-10 1 cap PO DAILY 06/01/19 05/14/25 History mg-50 mg-5 mg-300 mg capsule cinnamon bark-chromium picolinate 1 cap PO DAILY 03/30/22 05/14/25 History 500 mg-100 mcg capsule vitamins A,C,X-iwwt-qeacib 4,296 1 cap PO BID 05/14/25 05/14/25 History mcg-226 mg-90 mg capsule (PreserVision AREDS) Allergies Allergy/AdvReac Type Severity Reaction Status Date / Time morphine Allergy Severe RESPIRATORY Verified 05/14/25 18:37 DISTRESS Past Med/Surg History Problem List (Updated 05/14/25 @ 23:24 by Marbin Walters PA-C) Diabetic ulcer of right foot (Acute) Diabetic ulcer of right great toe (Acute) S/P drug eluting coronary stent placement S/P PTCA (percutaneous transluminal coronary angioplasty) Toe ulcer, right Hyperlipidemia DMII (diabetes mellitus, type 2) Contusion of multiple sites (Acute) Fall (Acute) Hyperglycemia (Acute) Pain, dental (Acute) Medical History ST elevation myocardial infarction (STEMI) of inferior wall Admitted to intensive care unit DVT prophylaxis Elevated troponin Precordial chest pain Acute electrocardiogram changes Acute CA STEMI (ST elevation myocardial infarction) CAD (coronary artery disease) Surgical History History of cholecystectomy (07/11/13) Family History Mother Coronary heart disease Father Diabetes Social History Smoking Status: Never smoker Tobacco Type: Smokeless Tobacco (Dip or Chew) Do You Dip or Chew Tobacco: Yes; Hx Alcohol Use: No Hx Substance Use: No Preferred Language: Liberian Beliefs That Will Affect Care: None Current Living Situation: Spouse Feels Safe at Home: Yes Review of Systems A total of 10 systems reviewed and were otherwise negative Physical Exam Vital Signs Vital Signs - 24 hr 05/14/25 17:16 Temperature 36.2 C L Temperature Source Temporal Artery Scan Pulse Rate 78 Respiratory Rate 16 Respiratory Effort / Characteristics Non-Labored Spontaneous Respiratory Depth Normal Respiratory Pattern Regular Blood Pressure 148/62 H Blood Pressure Mean 90 Blood Pressure Position Sitting Pulse Oximetry 95 Oxygen Delivery Method Room Air Sepsis Recent Fever Within 48 Hours No Sepsis New/Unexplained Change in Mental Status No Sepsis Action Taken by Nursing No Action Required VITAL SIGNS - Vital signs and nursing notes were reviewed. Stable and afebrile. GENERAL -64-year-old male appearing his stated age who is in no acute distress. Communicates well with provider and answers questions appropriately. SKIN -there are 2 ulcerations noted to the right foot area. The first is overlying the distal aspect of the great toe with associated nail disruption. There is also an ulceration to the right lateral foot region overlying the plantar aspect of the fifth MTP. There is a foul odor from the wounds. HEAD - NC/AT. EYES - PERRL with EOMI bilaterally. Sclera anicteric. EARS - No deformities of external structures noted on gross examination bilaterally. NOSE - Midline and without cyanosis. No epistaxis or purulent drainage noted. MOUTH/OROPHARYNX - Without perioral cyanosis. NECK - Neck with FROM. No nuchal rigidity. LUNGS -CTA CARDIAC - RRR EXTREMITIES - No clubbing or peripheral cyanosis. Skin as above. Right dorsalis pedis pulse within normal limits. There is some erythema surrounding the right first toe region. +5/5 strength noted in UE/LE bilaterally. NEUROLOGIC -cranial nerves grossly intact. Decree sensation to the right foot area. PSYCH -alert, oriented and pleasant on exam Course Administered Medications Vancomycin HCl 2,000 mg/ (Sodium Chloride) 540 mls @ 200 mls/hr IV ONE ONE Stop: 05/14/25 23:26 Last Admin: 05/14/25 21:34 Dose: 200 mls/hr Documented By: DAVID Insulin Aspart (Insulin Aspart Per Unit Charge) 0 units SC ACHS FRANKLIN Stop: 06/13/25 21:30 Last Admin: 05/14/25 21:34 Dose: Not Given Documented By: DAVID Discontinued Medications Cefepime HCl (Maxipime 2000mg) 2,000 mg in 20 mls @ 5 mls/min IV NOW STA; Protocol Stop: 05/14/25 17:37 Last Admin: 05/14/25 18:29 Dose: 5 mls/min Documented By: DENICE Miscellaneous (Patient's Height &/Or Weight Needed) 1 each N/A Q2H STA Stop: 05/14/25 19:37 Last Admin: 05/14/25 20:26 Dose: 1 each Documented By: NITIN Medical Decision Making Laboratory Data 05/14/25 18:04 05/14/25 18:04 Lab Results 05/14/25 Range/Units 18:04 WBC 6.22 (4.8-10.8) K/ul RBC 4.11 L (4.70-6.10) M/uL Hgb 12.2 L (14.0-18.0) g/dl Hct 36.8 L (42.0-52.0) % MCV 89.5 (80.0-100.0) fL MCH 29.7 (25.0-34.0) pg MCHC 33.2 (32.0-36.0) g/dL RDW Std Deviation 49.9 H (36.4-46.3) fL RDW Coeff of Saroj 15.1 H (11.5-14.5) % Plt Count 282 (130-400) K/uL MPV 10.2 (9.4-12.4) fL Immature Gran % (Auto) 0.2 % Neut % (Auto) 55.6 % Lymph % (Auto) 28.8 % Mcintosh % (Auto) 9.3 % Eos % (Auto) 5.1 % Baso % (Auto) 1.0 % Neut # (Auto) 3.46 (1.40-6.50) K/uL Lymph # (Auto) 1.79 (1.20-3.40) K/uL Mcintosh # (Auto) 0.58 (0.11-0.59) K/uL Eos # (Auto) 0.32 (0.00-0.50) K/uL Baso # (Auto) 0.06 (0.00-0.20) K/uL Immature Gran # (Auto) 0.01 (0.01-0.20) K/uL Sodium 136 (136-145) mmol/L Potassium 4.1 (3.5-5.1) mmol/L Chloride 102 (98-107) mmol/L Carbon Dioxide 25 (21-32) mmol/L Anion Gap 9 (3-11) BUN 34 H (6-23) mg/dl Creatinine 1.18 (0.6-1.4) mg/dl Est Cr Clr Drug Dosing Not Reportable eGFR 68.48 BUN/Creatinine Ratio 28.8 H (10-20) Glucose 79 (70-99(Fasting)) mg/dl Estimat Average Glucose 220 mg/dl Hemoglobin A1c 9.3 H (4.5-5.6) % Lactate 0.9 (0.4-2.0) mmol/L Calcium 9.5 (8.6-10.3) mg/dl Total Bilirubin 0.5 (0.2-1.0) mg/dl AST 19 (13-39) U/L ALT 14 (7-52) U/L Alkaline Phosphatase 104 (34-104) U/L C-Reactive Protein 0.89 H (0-0.5) mg/dl Total Protein 8.0 (6.0-8.3) gm/dl Albumin 4.7 (3.4-5.0) gm/dl Globulin 3.3 (2.5-4.0) gm/dl Albumin/Globulin Ratio 1.4 (0.9-2) Procalcitonin 0.03 (0-0.5) ng/ml Imaging Data Radiologist's Impression: Foot X-Ray 05/14/25 17:34 EXAM: XR foot RT min 3V routine CLINICAL HISTORY: R 1st toe and R lateral foot wound. TECHNIQUE: X-ray images of the right foot were obtained in anteroposterior (AP), lateral, and oblique projections. COMPARISON: No prior studies available for comparison. FINDINGS: Bone Structure: Bone structure is normal and aligned. No evidence of fracture or dislocation. No osseous lesions or abnormalities identified. Joint Spaces: Joint spaces are normal. No evidence of joint effusion or subluxation. Soft Tissues: Soft tissue edema at the forefoot mainly surrounding 1st toe and the lateral aspect of the foot adjacent to the metatarsophalangeal joint. Arterial atherosclerotic wall calcifications. No foreign bodies noted. Additional Findings: No signs of osteoarthritis, bone spurs, lytic or sclerotic lesions. IMPRESSION: 1. No evidence of acute fracture, or dislocation. No lytic or sclerotic osseous lesions. 2. Soft tissue edema at the forefoot mainly surrounding 1st toe and the lateral aspect of the foot adjacent to the metatarsophalangeal joint. Arterial atherosclerotic wall calcifications. Disclaimer: A subtle bone abnormality or fracture may not be readily apparent on X-rays, thus clinical correlation and further imaging including follow-up CT, MRI, or follow-up X-rays are advised as needed. Electronically signed by Julius Bryan 05-14-2025 8:06 PM Right foot per my interpretation: Bony erosion to the right first toe distally concerning for osteomyelitis MDM Narrative Patient was seen and evaluated as above in room D06. Review was performed of triage nursing notes and vital signs. I did review pertinent previous visits and patient history. After obtaining a thorough history and physical examination the above work up was performed. Patient presents with what appears to be an infected diabetic foot ulcer of the right first toe with associated ulceration also to the plantar aspect of the right fifth MTP region. There does appear to be secondary cellulitis to the right first toe. Options of care were discussed with the patient. IV access was established. Labs were drawn. No leukocytosis. Minor anemia noted with hemoglobin of 12.2. Lactate within normal range making sepsis less likely. Verbal consent was obtained and I did take pictures to place picture in the chart to document timeline of the infection. I also obtained a wound culture of the right first toe ulceration. I did order IV cefepime for this infected diabetic foot ulcer. Per my interpretation x-ray does show some bony erosion to the right first toe concerning for possible osteomyelitis. I do believe that further evaluation and management in the inpatient setting is warranted. Case discussed with hospitalist service. Please refer to further documentation regarding his stay. GCS: 15 In the evaluation and treatment of this patient the following differential diagnoses were entertained: Cellulitis, osteomyelitis, necrotizing fasciitis, diabetic ulcer, among others. Impression & Plan Diabetic ulcer of right great toe, Diabetic ulcer of right foot Discharge Plan Visit Data Chief Complaint: Infection, Wound Stated Complaint: INFECTION ED Provider: Vania Uriostegui ED Midlevel Provider: Marbin Walters Discharge Problem: Diabetic ulcer of right great toe, Diabetic ulcer of right foot Patient Disposition: Admitted As Inpatient Condition: Good Discharge Instructions Interventions: ED Discharge Assessment Last Done: 05/14/25 21:02
[2025-05-14] MEDS: CEFEPIME 2000MG 2,000 MG/20 ML SYR IV STA (17:56)
[2025-05-14 18:18] LABS: Basophils # (auto) 0.06 K/uL (0.00-0.20); Eosinophils # (auto) 0.32 K/uL (0.00-0.50); Eosinophils % (auto) 5.1 %; Hematocrit (blood only) 36.8 % (42.0-52.0); Hemoglobin 12.2 g/dl (14.0-18.0); Immature Granulocytes # (auto) 0.01 K/uL (0.01-0.20); Immature Granulocytes % (auto) 0.2 %; Lymphocytes # (auto) 1.79 K/uL (1.20-3.40); Lymphocytes % (auto) 28.8 %; Mean Corpuscular Hemoglobin 29.7 pg (25.0-34.0); Mean Corpuscular Hgb Conc 33.2 g/dL (32.0-36.0); Mean Corpuscular Volume 89.5 fL (80.0-100.0); Mean Platelet Volume 10.2 fL (9.4-12.4); Monocytes # (auto) 0.58 K/uL (0.11-0.59); Monocytes % (auto) 9.3 %; Neutrophils # (auto) 3.46 K/uL (1.40-6.50); Neutrophils % (auto) 55.6 %; Platelet Count 282 K/uL (130-400); RDW Coefficient of Variation 15.1 % (11.5-14.5); RDW Standard Deviation 49.9 fL (36.4-46.3); Red Blood Count 4.11 M/uL (4.70-6.10); White Blood Count 6.22 K/ul (4.8-10.8)
[2025-05-14 18:43] LABS: Alanine Aminotransferase 14 U/L (7-52); Albumin Globulin Ratio 1.4 (0.9-2); Albumin Level 4.7 gm/dl (3.4-5.0); Alkaline Phosphatase 104 U/L (34-104); Anion Gap 9 (3-11); Aspartate Aminotransferase 19 U/L (13-39); BUN Creatinine Ratio 28.8 (10-20); Bilirubin,Total 0.5 mg/dl (0.2-1.0); Blood Urea Nitrogen 34 mg/dl (6-23); C Reactive Protein 0.89 mg/dl (0-0.5); Calcium 9.5 mg/dl (8.6-10.3); Carbon Dioxide 25 mmol/L (21-32); Chloride 102 mmol/L (98-107); Globulin 3.3 gm/dl (2.5-4.0); Glucose 79 mg/dl (70-99(Fasting)); Potassium 4.1 mmol/L (3.5-5.1); Sodium 136 mmol/L (136-145)
[2025-05-14 19:07] LABS: Estimated Average Glucose 220 mg/dl; Hemoglobin A1C 9.3 % (4.5-5.6)
--- NOTE | 2025-05-14 19:21 | Emergency Department Note ---
ED Visit Note I was consulted by the Advanced Practice Provider, Marbin Walters PA-C. I performed a substantive portion of the visit. This includes aspects of: History: Patient is a 64-year-old male presenting with right foot wound. Patient reports that he has dropfoot and often drags his right foot behind him. He states that about a month ago he noticed a wound to his right great toe and is concerned about its healing. He has been treating the wound at home with some antibiotic ointment. MDM: Laboratory and imaging workup was obtained. Blood cultures were obtained. Patient was started on IV vancomycin and cefepime due to concern for diabetic foot wound as well as osteomyelitis. Patient to be admitted to inpatient hospital service for further evaluation and management. .
[2025-05-14] MEDS ORDERED: VANCOMYCIN CONSULT ACTIVE PRN (19:25)
--- NOTE | 2025-05-14 19:44 | History & Physical Report ---
Date of Service May 14, 2025 Assessment & Plan (1) Diabetic ulcer of right foot: (2) DMII (diabetes mellitus, type 2): (3) CAD (coronary artery disease): (4) Hyperlipidemia: Plan This is a 64-year-old male who has a significant past medical history of CAD, T2DM, diabetic neuropathy, diabetic retinopathy, HTN and HLD who presents to ED secondary to worsening right lower foot wounds x 1 month. #Diabetic Ulcer of plantar aspect of R great toe and base of R 5th toe, POA #Suspected osteomyelitis of R great toe #Diabetic neuropathy admit to medical XR: pending Obtain MRI and arterial duplex of RLE blood and wound cultures ordered consult podiatry Empiric IV Cefepime and vancomycin for now consult wound care #T2DM pt previously on insulin and jardiance; however stopped taking in august due to loss of insurance a1c 9.3, place on novolog SS for now, bsg in 70s in ED. Will need discussion with CM to evaluate for medicare/medicaid given age vs CV[facility] #CAD #HTN #HLD hx of EDGARD in 2021 with inferior DE, dx with severe CAD previously was on ASA, plavix 75mg daily, metoprolol succinate 25mg bid, lisinopril 5mg daily and crestor 40mg HS he stopped everything but ASA but to inability to afford/lack of insurance again will need discussion with CM regarding options and possible re evaluation for CV[facility] consider resuming some medications if felt pt is going to be compliant and able to obtain as outpatient #DVT ppx: none for now until seen by podiatry, if no surgical intervention recommend adding chemical prophylaxis in the a.m. FULL CODE PCP: none currently Dispo: admit to medical Pt was seen and examined in collaboration with Dr. Sahu, please see addendum I spent a total of 76 minutes coordinating, documenting and providing care for this patient excluding time spent in the performance of separately billed services or time spent by another provider/QHP. History of Present Illness Chief Complaint: R great toe wound/R 5th toe wound. Primary Care Provider: [facility] This is a 64-year-old male who has a significant past medical history of CAD, T2DM, diabetic neuropathy, diabetic retinopathy, HTN and HLD who presents to ED secondary to worsening right lower foot wounds x 1 month. Patient reports being uninsured since August and has stopped all of his routine medications except aspirin and akju-jbv-byzcntm supplements. He reports noting over the last month of 2 wounds to his right foot, the right great toe and the right fifth toe. He purchased anfq-jat-yhkejam silver gel as well as Neosporin with lidocaine. He states the wound to his great toe initially was black, but that has improved with the silver gel. He also reports swelling and pain to the right foot. He does note that he gets significant pain to his right foot after standing or his leg dangling for prolonged periods of time, it is improved whenever he rests and elevates his foot. He currently complains of chills but denies any fever, sweats, lightheadedness, dizziness, chest pain, shortness of breath, nausea, vomiting, abdominal pain, changes bowel or urinary habits. He reports having a limited amount of insulin and does take that occasionally when he feels his sugars are high. He does not monitor his blood sugar due to inability to afford test trips. He [place] living [place] and not having the means to drive. He therefore mostly utilizes the [facility] [place] and [facility]. He is no longer following with [facility], but is interested in this as an option if possible. History obtained from patient and ED provider. He denies any alcohol use. He does use chewing tobacco daily. Allergies Allergy/AdvReac Type Severity Reaction Status Date / Time morphine Allergy Severe RESPIRATORY Verified 05/14/25 18:37 DISTRESS Home Medications Medication Instructions Recorded Confirmed Type aspirin 81 mg tablet,delayed 81 mg PO DAILY 06/01/19 05/14/25 History release vitamin B comp and C no.3 15 mg-10 1 cap PO DAILY 06/01/19 05/14/25 History mg-50 mg-5 mg-300 mg capsule cinnamon bark-chromium picolinate 1 cap PO DAILY 03/30/22 05/14/25 History 500 mg-100 mcg capsule vitamins A,C,F-rozz-nyykwi 4,296 1 cap PO BID 05/14/25 05/14/25 History mcg-226 mg-90 mg capsule (PreserVision AREDS) Past Med/Surg History Problem List Diabetic ulcer of right foot (Acute) Acute osteomyelitis of toe of right foot (Acute) Diabetic ulcer of right great toe (Acute) S/P drug eluting coronary stent placement S/P PTCA (percutaneous transluminal coronary angioplasty) Toe ulcer, right Hyperlipidemia DMII (diabetes mellitus, type 2) Contusion of multiple sites (Acute) Fall (Acute) Hyperglycemia (Acute) Pain, dental (Acute) Medical History ST elevation myocardial infarction (STEMI) of inferior wall Admitted to intensive care unit DVT prophylaxis Elevated troponin Precordial chest pain Acute electrocardiogram changes Acute [place] STEMI (ST elevation myocardial infarction) CAD (coronary artery disease) Surgical History History of cholecystectomy (07/11/13) Family History Mother Coronary heart disease Father Diabetes Social History Smoking Status: Never smoker Tobacco Type: Smokeless Tobacco (Dip or Chew) Do You Dip or Chew Tobacco: Yes; Hx Alcohol Use: Yes Alcohol type: hard liquor Hx Substance Use: No Preferred Language: Estonian Beliefs That Will Affect Care: None Current Living Situation: Spouse Feels Safe at Home: Yes Review of Systems Review of Systems: All systems reviewed & are unremarkable except as noted in HPI & below Physical Exam Physical Exam: Constitutional: WD/WN, vitals as above, NAD, sitting up in bed, pleasant, conversing easily Head: Normocephalic, Atraumatic Eyes: conjunctivae normal, anicteric sclerae ENMT: external ear and nose normal, oropharynx with very poor dentition Neck: trachea midline, no thyromegaly normal visual inspection Respiratory: normal respiratory effort, lungs clear to auscultation, no wheeze, rales, rhonchi. Normal insp/exp effort, no accessory muscle use Cardiovascular: RRR, no murmur, no edema Vessels: no JVD or carotid bruit Chest: normal inspection of chest Abdomen: normal bowel sounds, soft, nontender, no hepatosplenomegaly Musculoskeletal: no cyanosis or clubbing, extremities motor strength 5/5 Skin: no rashes, warm and dry normal turgor + Distal aspect of R great toe wound with central granulation and R 5th toe plantar base wound, please refer to ED provider Documentation for pictures Neurologic: PERRL, EOMI, accommodation nl, no face palsy, no dysarthria CN's II-XI intact bilaterally and moves all extremities Psychiatric: A+Ox3, euthymic affect Lymphatic: no cervical or axillary lymphadenopathy : deferred Results & Data Results & Data Vital Signs (Past 12 Hours) Vital Signs Temp Pulse Resp BP Pulse Ox O2 Del Method 05/14/25 17:16 36.2 C L 78 16 148/62 H 95 Room Air Laboratory Results I have independently reviewed and interpreted patient's admitting labs including CBC, CMP, crp, procal, a1c Medications Administered Medication List Discontinued Medications Cefepime HCl (Maxipime 2000mg) 2,000 mg in 20 mls @ 5 mls/min IV NOW STA; Protocol Stop: 05/14/25 17:37 Last Admin: 05/14/25 18:29 Dose: 5 mls/min Documented By: CAP Code Status & VTE Plan Code Status FULL CODE VTE Prophylaxis Plan VTE Prophylaxis will be ordered: Yes
--- NOTE | 2025-05-14 20:08 | XRay Report ---
EXAM: XR foot RT min 3V routine CLINICAL HISTORY: R 1st toe and R lateral foot wound. TECHNIQUE: X-ray images of the right foot were obtained in anteroposterior (AP), lateral, and oblique projections. COMPARISON: No prior studies available for comparison. FINDINGS: Bone Structure: Bone structure is normal and aligned. No evidence of fracture or dislocation. No osseous lesions or abnormalities identified. Joint Spaces: Joint spaces are normal. No evidence of joint effusion or subluxation. Soft Tissues: Soft tissue edema at the forefoot mainly surrounding 1st toe and the lateral aspect of the foot adjacent to the metatarsophalangeal joint. Arterial atherosclerotic wall calcifications. No foreign bodies noted. Additional Findings: No signs of osteoarthritis, bone spurs, lytic or sclerotic lesions. IMPRESSION: 1. No evidence of acute fracture, or dislocation. No lytic or sclerotic osseous lesions. 2. Soft tissue edema at the forefoot mainly surrounding 1st toe and the lateral aspect of the foot adjacent to the metatarsophalangeal joint. Arterial atherosclerotic wall calcifications. Disclaimer: A subtle bone abnormality or fracture may not be readily apparent on X-rays, thus clinical correlation and further imaging including follow-up CT, MRI, or follow-up X-rays are advised as needed. Electronically signed by Julius Bryan 05-14-2025 8:06 PM
[2025-05-14] MEDS: Patient's HEIGHT &/or WEIGHT Needed STA (20:26)
[2025-05-14] MEDS ORDERED: GLUCOSE 40% GEL 15 GM TUBE PO PRN (21:31)
[2025-05-14] MEDS ORDERED: GLUCAGON FOR INJ 1 MG VIAL SQ PRN (21:31)
[2025-05-14] MEDS ORDERED: GLUCOSE 10 TAB/TUBE PO PRN (21:31)
[2025-05-14] MEDS ORDERED: FAMOTIDINE 20 MG TAB PO PRN (21:31)
[2025-05-14] MEDS ORDERED: ONDANSETRON INJ 2 MG/ML 2 ML VIAL IV PRN (21:31)
[2025-05-14] MEDS ORDERED: POLYETHYLENE (MIRALAX) 17 GM PACK PO PRN (21:31)
[2025-05-14] MEDS ORDERED: CARBOHYDRATES FOR HYPOGLYCEMIA PO PRN (21:31)
[2025-05-14] MEDS ORDERED: MELATONIN 3 MG TAB PO PRN (21:31)
[2025-05-14] MEDS ORDERED: DEXTROSE 50% 50 ML SYRINGE IV PRN (21:31)
[2025-05-14] MEDS: INSULIN ASPART PER UNIT CHARGE SC SCH (21:34)
[2025-05-14] MEDS: VANCOMYCIN HCL 2,000 MG in SODIUM CHLORIDE 0.9% 500 ML IV ONE (21:34)
[2025-05-14] MEDS: ACETAMINOPHEN 325 MG TAB PO PRN (23:26)
[2025-05-15] MEDS: GADOBUTROL 65ML VIAL IV ONE (02:07)
[2025-05-15] MEDS: CEFEPIME 2000MG 2,000 MG/20 ML SYR IV SCH (02:58)
--- NOTE | 2025-05-15 03:16 | Magnetic Resonance Report ---
EXAM: MR foot RT wo/w con CLINICAL HISTORY: osteomyelitis, great toe/5th toe wounds TECHNIQUE: Multiplanar, multisequence MR imaging of the right foot was performed without and with gadolinium. COMPARISON: none FINDINGS: Diffuse subcutaneous edema in dorsum of foot. Diffuse muscles edema in plantar compartment. Suspicious bone marrow edema in entire distal phalanx of great toe. Skin and subcutaneous thickening with mild ulceration seen overlying 1st toe. Mild interphalangeal and meta-tarsophalangeal joint effusion in 1st toe. The visualized flexor and extensor tendons are intact. The Lisfranc ligament is intact. The plantar fascia is intact with no evidence of plantar plate injury. There is no evidence of Jarquin's neuroma. No intermetatarsal bursitis is identified. IMPRESSION: 1. Diffuse subcutaneous edema in dorsum of foot. 2. Diffuse muscles edema in plantar compartment. 3. Suspicious bone marrow edema in entire distal phalanx of great toe- possible osteomyelitis. 4. Skin and subcutaneous thickening with suspicious ulceration seen overlying 1st toe. 5. Mild interphalangeal and meta-tarsophalangeal joint effusion in 1st toe. Electronically signed by Niko Javier 05-15-2025 03:16 AM
[2025-05-15 06:46] LABS: Basophils # (auto) 0.05 K/uL (0.00-0.20); Basophils % (auto) 1.3 %; Eosinophils # (auto) 0.39 K/uL (0.00-0.50); Eosinophils % (auto) 10.2 %; Hematocrit (blood only) 32.9 % (42.0-52.0); Hemoglobin 10.7 g/dl (14.0-18.0); Immature Granulocytes # (auto) 0.01 K/uL (0.01-0.20); Immature Granulocytes % (auto) 0.3 %; Lymphocytes # (auto) 1.41 K/uL (1.20-3.40); Lymphocytes % (auto) 36.8 %; Mean Corpuscular Hemoglobin 29.5 pg (25.0-34.0); Mean Corpuscular Hgb Conc 32.5 g/dL (32.0-36.0); Mean Corpuscular Volume 90.6 fL (80.0-100.0); Mean Platelet Volume 10.3 fL (9.4-12.4); Monocytes # (auto) 0.49 K/uL (0.11-0.59); Monocytes % (auto) 12.8 %; Neutrophils # (auto) 1.48 K/uL (1.40-6.50); Neutrophils % (auto) 38.6 %; Platelet Count 235 K/uL (130-400); RDW Coefficient of Variation 15.1 % (11.5-14.5); RDW Standard Deviation 50.1 fL (36.4-46.3); Red Blood Count 3.63 M/uL (4.70-6.10); White Blood Count 3.83 K/ul (4.8-10.8)
[2025-05-15 07:25] LABS: Albumin Globulin Ratio 1.4 (0.9-2); Albumin Level 3.7 gm/dl (3.4-5.0); BUN Creatinine Ratio 28.2 (10-20); Bilirubin,Total 0.4 mg/dl (0.2-1.0); Calcium 8.3 mg/dl (8.6-10.3); Creatinine Clr Calc Pharmacy 78.5 ml/min; Globulin 2.7 gm/dl (2.5-4.0); Magnesium 1.8 mg/dl (1.7-2.4); Potassium 4.1 mmol/L (3.5-5.1); Total Protein 6.4 gm/dl (6.0-8.3)
[2025-05-15] MEDS: VANCOMYCIN HCL 1,000 MG/270 ML BAG IV SCH (07:30)
--- NOTE | 2025-05-15 07:31 | Ultrasound Report ---
EXAM: US arterial duplex LE RT CLINICAL HISTORY: Non-healing wounds, claudication. TECHNIQUE: Ultrasound examination of the right lower extremity arteries with ankle brachial indices was performed in real time and duplex. One or more of the following were performed: spectral analysis, resistive index, waveform analysis, and pulsed Doppler. COMPARISON: None. FINDINGS: Vessel Flow Pattern Right Peak Velocity Right (cm/sec) Common Femoral Artery (CULINARY ARTS TEACHER) [[place]] Proximal to calified plaque: 20 Distal to clacified plaque: 380.6 Distal CULINARY ARTS TEACHER: 62.1 Deep Femoral Artery (DPA) [[place]] 25 Superficial Femoral Artery (SFA) [[place]] Proximal:36.5 Mid: 28 distal: 23 Popliteal Artery (POP A) [[place]] Proximal: 26 Mid: 69 Distal: 24 Posterior Tibial Artery (GOLF INSTRUCTOR) [[place]] Proximal: 30 Mid: 35 Distal: 18 Peroneal Artery [[place]] 17 Anterior Tibial Artery (SURYA) [[place]] 26 Dorsalis Pedis Artery (DPA) [[place]] 18 The right JARED is 0.55. Left JARED is 1.15 The study is limited due to heavy calcified plaque throughout. Marked stenosis secondary to calcified plaques at proximal common femoral and proximal popliteal arteries, with marked poste-stenotic eleation in systolic velocities seen Monophasic waveforms of the right lower extremity. Low velocity noted from the proximal FA through the calf arteries. Limited views of the calf arteries due to heavy calcified plaques. Collateral Circulation: No significant collateral circulation noted, indicative of chronic arterial occlusion. IMPRESSION: 1. Elevated velocity at the proximal right common femoral artery (PSV 380.6 cm/sec) is consistent with ?70% stenosis. 2. Post-stenotic elevated PSV at the proximal popliteal artery is also seen, suggets significant stenosis. 3. Abnormal monophasic waveforms as detailed. Findings suggest severe peripheral vascular disease. 4. JARED on the right is reduced, consistent with moderate PAD. 5. CTA correlation is advised as clinically warranted. Electronically signed by Julius Bryan 05-15-2025 07:30 AM
[2025-05-15] MEDS: ADVANCED PROBIOTIC 625 MG CAPSULE PO SCH (08:45)
[2025-05-15] MEDS: ASPIRIN 81 MG ECTAB PO SCH (08:45)
--- NOTE | 2025-05-15 09:46 | Pharmacy Report ---
Pharmacy PK ABX Note - Date of Service May 15, 2025 - Assessment and Plan Assessment 64 year old M receiving vancomycin and cefepime for suspected osteo of toe. Cultures pending. Plan Vancomycin * Loading dose: 2000 mg IV x 1 * Maintenance dose: 1000 mg IV every 12 hours * Regimen is predicted to achieve target AUC/LOCO of 400-600 mg/L.hr * Random vancomycin level ordered for tomorrow AM to assess dosing Pharmacy will continue to follow and will adjust dose/frequency as necessary. Thank you. Pharmacy has transitioned to AUC monitoring for vancomycin. AUC/LOCO is the preferred PK/PD target and is associated with decreased risk of nephrotoxicity compared to traditional trough targets.
--- NOTE | 2025-05-15 12:55 | Orthopedic Consultation ---
Date of Consultation May 15, 2025 Assessment & Plan (1) Diabetic ulcer of right foot: (2) Diabetic ulcer of right great toe: (3) Hyperlipidemia: (4) DMII (diabetes mellitus, type 2): (5) CAD (coronary artery disease): (6) Diabetic vasculopathy: Plan Juan Antonio is a 64-year-old gentleman who is quite medically complex. As noted in the HPI, he has been dealing with wounds on his right foot underneath his great toe and his fifth toe for the last month or so. Patient notes that he has had a "toe drop" since a recent back surgery and this is never really caused him an issue but because of this he is unable to extend his great toe and he believes that this is why his toe rubbed on the bottom of his shoe and caused an ulcer. On my evaluation this morning, the patient was very quick to tell me that "if you are here to tell me I need an amputation I do not want to hear it". I did very long discussion with him regarding his current presentation. Discussed in great detail the pathoanatomy, pathophysiology, treatment options for his diabetic foot wounds. We also discussed long-term outcomes with this regard. Patient has had MRIs done which are concerning for osteomyelitis of his great toe distal phalanx. There is some T2 hyperintensity located within the plantar aspect of the fifth metatarsal head as well. Likely, on his physical exam, I do not appreciate any deep probing to bone. The patient is insistent that with his home wound care that he has been doing over the last few weeks his wounds have improved significantly. Patient did have arterial ultrasounds done measuring ABIs and his right foot JARED is 0.55. Given the patient's continued nicotine use, his obviously limited vascular status of his right lower extremity, I am very concerned about not only his potential ability to heal either or both of these ulcers, but also his ability to heal any potential amputation in the foot. at this point, I think we have a couple of options as it relates to management of his foot wounds. Option 1: Cautious observation with local wound care and antibiotics and close outpatient follow-up to monitor the wounds and there are potential healing Option 2: Right great toe proximal phalanx amputation with debridement of ulcer on the plantar fifth metatarsal head Option 3: Right transmetatarsal amputation given the patient's poor vascular status, I think that his body's ability to heal the ulcers or any type of limited debridement/amputation is quite low. I think that the most distal potential amputation site would be a transmetatarsal amputation, however, again, given his poor vascular status I think that his chances of healing a transmetatarsal amputation is quite low as well. I did discuss this with the patient in great detail today. He understands that there is a potential to begin a "amputation cascade" if he does undergo an amputation and is unable to heal that. At this time, the patient is not floridly septic, and can undergo some medical optimization. Additionally, during this time, I think it would be very appropriate to have the vascular surgery team weigh in on their thoughts with regards to the patient's ability to heal an amputation specifically a transmetatarsal amputation versus a below-knee amputation. The patient notes at this time he is not willing to consent to any amputation until he hears from additional providers. I will plan to continue to follow along during this patients hospitalization. Should the patient wish to continue local wound care with cautious observation, I do think that and following up with a instrument assembly supervisor is very reasonable. I would recommend he see Dr. Slade. Of course, I will make myself available to him for any additional questions or for potential higher level amputation. History of Present Illness Reason for Consultation: Right foot wounds Attending Physician: Austin Hollis MD History of Present Illness This is a 64-year-old male who has a significant past medical history of CAD, T2DM, diabetic neuropathy, diabetic retinopathy, HTN and HLD who presents to ED secondary to worsening right lower foot wounds x 1 month. Patient reports being uninsured since August and has stopped all of his routine medications except aspirin and mksu-gns-spzasku supplements. He reports noting over the last months, 2 wounds to his right foot, the right great toe and the right fifth toe. both of these wounds are plantar. He states he has had a great toe drop since prior L5/S1 fusion and this has caused his toe to become more susceptible to wounds. A week or 2 ago, he purchased iviu-lsf-kzinmzv silver gel as well as Neosporin with lidocaine which she has been applying to his feet. He states the wound to his great toe initially was black, but that has improved with the silver gel. He denies any fever, sweats, lightheadedness, dizziness, chest pain, shortness of breath, nausea, vomiting, abdominal pain, changes bowel or urinary habits. He reports having a limited amount of insulin and does take that occasionally when he feels his sugars are high. He does not monitor his blood sugar due to inability to afford test trips. He reports living downtown and not having the means to drive. He [facility]. He is no longer following with CV [facility], but is interested in this as an option if possible. History obtained from patient and chart review. He denies any alcohol use. He does use chewing tobacco daily. On my evaluation this morning, the patient notes that he is overall comfortable here. He states that his foot has not been bothering him nearly as much since he has been admitted. First thing that he said to me was that "if you are here to tell me I need an amputation, I do not want to hear it". Allergies Allergy/AdvReac Type Severity Reaction Status Date / Time morphine Allergy Severe RESPIRATORY Verified 05/14/25 18:37 DISTRESS Home Medications Medication Instructions Recorded Confirmed Type aspirin 81 mg tablet,delayed 81 mg PO DAILY 06/01/19 05/14/25 History release vitamin B comp and C no.3 15 mg-10 1 cap PO DAILY 06/01/19 05/14/25 History mg-50 mg-5 mg-300 mg capsule cinnamon bark-chromium picolinate 1 cap PO DAILY 03/30/22 05/14/25 History 500 mg-100 mcg capsule vitamins A,C,D-dxwm-hiqzuy 4,296 1 cap PO BID 05/14/25 05/14/25 History mcg-226 mg-90 mg capsule (PreserVision AREDS) Patient History Medical History ST elevation myocardial infarction (STEMI) of inferior wall Admitted to intensive care unit DVT prophylaxis Elevated troponin Precordial chest pain Acute electrocardiogram changes Acute [place] STEMI (ST elevation myocardial infarction) CAD (coronary artery disease) Surgical History History of cholecystectomy (07/11/13) Family History Mother Coronary heart disease Father Diabetes Social History Smoking Status: Never smoker Tobacco Type: Smokeless Tobacco (Dip or Chew) Do You Dip or Chew Tobacco: Yes; Hx Alcohol Use: No Hx Substance Use: No Preferred Language: Sri Lankan Communication Ability: Effective Beliefs That Will Affect Care: None Current Living Situation: Spouse Feels Safe at Home: Yes Assistive Devices: None Review of Systems Review of Systems: Negative unless otherwise stated in HPI Physical Exam Physical Exam: on physical examination, the patient has a warm foot but his pulses are not palpable. He has superficial appearing wounds located on the plantar tuft of his great toe as well as at the plantar aspect of his fifth metatarsal head. These do not probe particularly deep. He lacks the ability to perform great toe extension and notes that he has lack of stability since his back surgery. His feet are numb bilaterally in a stocking-like distribution which is at baseline per the patient. Results & Data Vital Signs (Past 12 Hours) Vital Signs Temp Pulse Resp BP Pulse Ox O2 Del Method 05/15/25 07:48 36.3 C L 70 16 124/73 97 Room Air Diagnostic Findings X-rays and MRI of the right foot were personally interpreted and reviewed. These demonstrate wounds at the fifth metatarsal head and at the great toe distal phalanx. The distal phalanx of the great toe is suspicious for osteomyelitis. Patient did have vascular studies done to include bilateral ABIs. On the left he has a JARED of 1.15 and on the right it is 0.55.
--- NOTE | 2025-05-15 13:15 | Hospitalist Progress Note ---
Date of Service May 15, 2025 Assessment & Plan (1) Diabetic ulcer of right foot: (2) DMII (diabetes mellitus, type 2): (3) CAD (coronary artery disease): (4) Hyperlipidemia: Plan This is a 64-year-old male who has a significant past medical history of CAD, T2DM, diabetic neuropathy, diabetic retinopathy, HTN and HLD who presents to ED secondary to worsening right lower foot wounds x 1 month. #Diabetic Ulcer of plantar aspect of R great toe and base of R 5th toe, POA #Suspected osteomyelitis of R great toe #Diabetic neuropathy XR Foot - 1. No evidence of acute fracture, or dislocation. No lytic or sclerotic osseous lesions. 2. Soft tissue edema at the forefoot mainly surrounding 1st toe and the lateral aspect of the foot adjacent to the metatarsophalangeal joint. Arterial atherosclerotic wall calcifications. MRI Foot - 1. Diffuse subcutaneous edema in dorsum of foot. 2. Diffuse muscles edema in plantar compartment. 3. Suspicious bone marrow edema in entire distal phalanx of great toe- possible osteomyelitis. 4. Skin and subcutaneous thickening with suspicious ulceration seen overlying 1st toe. 5. Mild interphalangeal and meta-tarsophalangeal joint effusion in 1st toe. Arterial duplex of RLE- 1. Elevated velocity at the proximal right common femoral artery (PSV 380.6 cm/sec) is consistent with ?70% stenosis. 2. Post-stenotic elevated PSV at the proximal popliteal artery is also seen, suggets significant stenosis. 3. Abnormal monophasic waveforms as detailed. Findings suggest severe peripheral vascular disease. 4. JARED on the right is reduced, consistent with moderate PAD. 5. CTA correlation is advised as clinically warranted. Blood and wound cultures obtained - pending Consulted podiatry/ orthopedics - discussed w/ Dr. Lima - pt does not wish any amputation at this time. Recommend vascular surgery eval for planning of future treatment -> consulted Dr. Avelar Empiric IV Cefepime and vancomycin for now Consulted wound care #T2DM pt previously on insulin and jardiance; however stopped taking in August due to loss of insurance A1c 9.3, place on novolog SS for now, bsg in 70s in ED. CM consulted to evaluate for medicare/medicaid given age vs [facility] #CAD #HTN #HLD hx of EDGARD in 2021 with inferior OR, dx with severe CAD previously was on ASA, plavix 75mg daily, metoprolol succinate 25mg bid, serjio nopril 5mg daily and crestor 40mg HS he stopped everything but ASA but to inability to afford/lack of insurance again will need discussion with CM regarding options and possible re evaluation for [facility] consider resuming some medications if felt pt is going to be compliant and able to obtain as outpatient #DVT ppx: none for now until seen by podiatry/ and vascular , if no surgical intervention recommend adding chemical prophylaxis FULL CODE PCP: none currently Dispo: med/surg Admission and Anticipated Discharge Date Admission Date: May 14, 2025 Subjective Pt seen in follow up of foot wounds, possible osteo Pt seen by orthopedics (Dr. Lima) - pt does not want any amputation, discussed that vascular surg. involvement would be beneficial for future planning of treatment of the pt -> consulted vasc. Dr. Avelar Currently pt is lying in bed in NAD, confirms that he does not wish amputation and would try any other route first Denies fevers, chills, chest pain, shortness of breath, abd. pain, n/v Review of Systems Review of Systems: All systems reviewed & are unremarkable except as noted in Subjective Physical Exam Physical Exam: Constitutional: WD/WN M in NAD, sitting up in bed, pleasant, conversing easily Head: Normocephalic, Atraumatic Eyes: conjunctivae normal, anicteric sclerae ENMT: external ear and nose normal, oropharynx with very poor dentition Neck: normal visual inspection Respiratory: normal respiratory effort, lungs clear to auscultation, no wheeze, rales, rhonchi. Normal insp/exp effort, no accessory muscle use Cardiovascular: RRR, no murmur, no edema Chest: normal inspection of chest Abdomen: normal bowel sounds, soft, nontender Musculoskeletal: no LE edema, moves extremities Skin: no rashes, warm and dry + Distal aspect of R great toe wound with central granulation and R 5th toe plantar base wound, please refer to ED provider Documentation for pictures Neurologic: PERRL, EOMI, no face palsy, no dysarthria, answers appropriately, moves all extremities Psychiatric: A+Ox3, euthymic affect Results & Data Results & Data Vital Signs (Past 12 Hours) Vital Signs Temp Pulse Resp BP Pulse Ox O2 Del Method 05/15/25 07:48 36.3 C L 70 16 124/73 97 Room Air Laboratory Results 05/15/25 05/15/25 05/15/25 Range/Units 11:52 07:45 05:57 WBC 3.83 L (4.8-10.8) K/ul RBC 3.63 L (4.70-6.10) M/uL Hgb 10.7 L (14.0-18.0) g/dl Hct 32.9 L (42.0-52.0) % MCV 90.6 (80.0-100.0) fL MCH 29.5 (25.0-34.0) pg MCHC 32.5 (32.0-36.0) g/dL RDW Std Deviation 50.1 H (36.4-46.3) fL RDW Coeff of Saroj 15.1 H (11.5-14.5) % Plt Count 235 (130-400) K/uL MPV 10.3 (9.4-12.4) fL Immature Gran % (Auto) 0.3 % Neut % (Auto) 38.6 % Lymph % (Auto) 36.8 % [place] % (Auto) 12.8 % Eos % (Auto) 10.2 % Baso % (Auto) 1.3 % Neut # (Auto) 1.48 (1.40-6.50) K/uL Lymph # (Auto) 1.41 (1.20-3.40) K/uL [place] # (Auto) 0.49 (0.11-0.59) K/uL Eos # (Auto) 0.39 (0.00-0.50) K/uL Baso # (Auto) 0.05 (0.00-0.20) K/uL Immature Gran # (Auto) 0.01 (0.01-0.20) K/uL Sodium 137 (136-145) mmol/L Potassium 4.1 (3.5-5.1) mmol/L Chloride 105 (98-107) mmol/L Carbon Dioxide 26 (21-32) mmol/L Anion Gap 6 (3-11) BUN 29 H (6-23) mg/dl Creatinine 1.03 (0.6-1.4) mg/dl Est Cr Clr Drug Dosing 78.5 eGFR 80.61 BUN/Creatinine Ratio 28.2 H (10-20) Glucose 154 H (70-99(Fasting)) mg/dl POC Glucose 168 H 173 H (70-99) mg/dl Estimat Average Glucose mg/dl Hemoglobin A1c (4.5-5.6) % Lactate (0.4-2.0) mmol/L Calcium 8.3 L (8.6-10.3) mg/dl Magnesium 1.8 (1.7-2.4) mg/dl Total Bilirubin 0.4 (0.2-1.0) mg/dl AST 15 (13-39) U/L ALT 11 (7-52) U/L Alkaline Phosphatase 85 (34-104) U/L C-Reactive Protein (0-0.5) mg/dl Total Protein 6.4 (6.0-8.3) gm/dl Albumin 3.7 (3.4-5.0) gm/dl Globulin 2.7 (2.5-4.0) gm/dl Albumin/Globulin Ratio 1.4 (0.9-2) Triglycerides 168 H (0-150) mg/dl Cholesterol 198 (0-200) mg/dl LDL Cholesterol, Calc 131 mg/dl VLDL Cholesterol, Calc 34 H (0-30) mg/dl HDL Cholesterol 33 mg/dl Cholesterol/HDL Ratio 6.0 H (0-5) Procalcitonin (0-0.5) ng/ml 05/14/25 05/14/25 05/14/25 Range/Units 22:51 21:34 21:29 WBC (4.8-10.8) K/ul RBC (4.70-6.10) M/uL Hgb (14.0-18.0) g/dl Hct (42.0-52.0) % MCV (80.0-100.0) fL MCH (25.0-34.0) pg MCHC (32.0-36.0) g/dL RDW Std Deviation (36.4-46.3) fL RDW Coeff of Saroj (11.5-14.5) % Plt Count (130-400) K/uL MPV (9.4-12.4) fL Immature Gran % (Auto) % Neut % (Auto) % Lymph % (Auto) % [place] % (Auto) % Eos % (Auto) % Baso % (Auto) % Neut # (Auto) (1.40-6.50) K/uL Lymph # (Auto) (1.20-3.40) K/uL [place] # (Auto) (0.11-0.59) K/uL Eos # (Auto) (0.00-0.50) K/uL Baso # (Auto) (0.00-0.20) K/uL Immature Gran # (Auto) (0.01-0.20) K/uL Sodium (136-145) mmol/L Potassium (3.5-5.1) mmol/L Chloride (98-107) mmol/L Carbon Dioxide (21-32) mmol/L Anion Gap (3-11) BUN (6-23) mg/dl Creatinine (0.6-1.4) mg/dl Est Cr Clr Drug Dosing eGFR BUN/Creatinine Ratio (10-20) Glucose (70-99(Fasting)) mg/dl POC Glucose 168 H 65 L* 63 L* (70-99) mg/dl Estimat Average Glucose mg/dl Hemoglobin A1c (4.5-5.6) % Lactate (0.4-2.0) mmol/L Calcium (8.6-10.3) mg/dl Magnesium (1.7-2.4) mg/dl Total Bilirubin (0.2-1.0) mg/dl AST (13-39) U/L ALT (7-52) U/L Alkaline Phosphatase (34-104) U/L C-Reactive Protein (0-0.5) mg/dl Total Protein (6.0-8.3) gm/dl Albumin (3.4-5.0) gm/dl Globulin (2.5-4.0) gm/dl Albumin/Globulin Ratio (0.9-2) Triglycerides (0-150) mg/dl Cholesterol (0-200) mg/dl LDL Cholesterol, Calc mg/dl VLDL Cholesterol, Calc (0-30) mg/dl HDL Cholesterol mg/dl Cholesterol/HDL Ratio (0-5) Procalcitonin (0-0.5) ng/ml 05/14/25 Range/Units 18:04 WBC 6.22 (4.8-10.8) K/ul RBC 4.11 L (4.70-6.10) M/uL Hgb 12.2 L (14.0-18.0) g/dl Hct 36.8 L (42.0-52.0) % MCV 89.5 (80.0-100.0) fL MCH 29.7 (25.0-34.0) pg MCHC 33.2 (32.0-36.0) g/dL RDW Std Deviation 49.9 H (36.4-46.3) fL RDW Coeff of Saroj 15.1 H (11.5-14.5) % Plt Count 282 (130-400) K/uL MPV 10.2 (9.4-12.4) fL Immature Gran % (Auto) 0.2 % Neut % (Auto) 55.6 % Lymph % (Auto) 28.8 % [place] % (Auto) 9.3 % Eos % (Auto) 5.1 % Baso % (Auto) 1.0 % Neut # (Auto) 3.46 (1.40-6.50) K/uL Lymph # (Auto) 1.79 (1.20-3.40) K/uL [place] # (Auto) 0.58 (0.11-0.59) K/uL Eos # (Auto) 0.32 (0.00-0.50) K/uL Baso # (Auto) 0.06 (0.00-0.20) K/uL Immature Gran # (Auto) 0.01 (0.01-0.20) K/uL Sodium 136 (136-145) mmol/L Potassium 4.1 (3.5-5.1) mmol/L Chloride 102 (98-107) mmol/L Carbon Dioxide 25 (21-32) mmol/L Anion Gap 9 (3-11) BUN 34 H (6-23) mg/dl Creatinine 1.18 (0.6-1.4) mg/dl Est Cr Clr Drug Dosing Not Reportable eGFR 68.48 BUN/Creatinine Ratio 28.8 H (10-20) Glucose 79 (70-99(Fasting)) mg/dl POC Glucose (70-99) mg/dl Estimat Average Glucose 220 mg/dl Hemoglobin A1c 9.3 H (4.5-5.6) % Lactate 0.9 (0.4-2.0) mmol/L Calcium 9.5 (8.6-10.3) mg/dl Magnesium (1.7-2.4) mg/dl Total Bilirubin 0.5 (0.2-1.0) mg/dl AST 19 (13-39) U/L ALT 14 (7-52) U/L Alkaline Phosphatase 104 (34-104) U/L C-Reactive Protein 0.89 H (0-0.5) mg/dl Total Protein 8.0 (6.0-8.3) gm/dl Albumin 4.7 (3.4-5.0) gm/dl Globulin 3.3 (2.5-4.0) gm/dl Albumin/Globulin Ratio 1.4 (0.9-2) Triglycerides (0-150) mg/dl Cholesterol (0-200) mg/dl LDL Cholesterol, Calc mg/dl VLDL Cholesterol, Calc (0-30) mg/dl HDL Cholesterol mg/dl Cholesterol/HDL Ratio (0-5) Procalcitonin 0.03 (0-0.5) ng/ml Medications Administered Current Inpatient Medications Acetaminophen (Acetaminophen 325 Mg Tab) 650 mg PO Q4H PRN PRN Reason: Pain or Fever Stop: 06/13/25 21:30 Last Admin: 05/15/25 08:53 Dose: 650 mg Aspirin (Aspirin 81 Mg Ectab) 81 mg PO DAILY [place] Stop: 06/14/25 08:59 Last Admin: 05/15/25 08:45 Dose: 81 mg Dextrose (Dextrose 50% 50 Ml Syringe) 25 - 50 ml IV UD PRN; Protocol PRN Reason: Hypoglycemia Protocol Stop: 06/13/25 21:30 Famotidine (Famotidine 20 Mg Tab) 20 mg PO DAILY PRN PRN Reason: Heartburn Stop: 06/13/25 21:30 Glucagon (Glucagon For Inj 1 Mg Vial) 1 mg SQ UD PRN; Protocol PRN Reason: Hypoglycemia Protocol Stop: 06/13/25 21:30 Glucose (Glucose 40% Gel 15 Gm Tube) 15 - 30 gm PO UD PRN; Protocol PRN Reason: Hypoglycemia Protocol Stop: 06/13/25 21:30 Glucose (Glucose 10 Tab/Tube) 4 - 8 tab PO UD PRN; Protocol PRN Reason: Hypoglycemia Protocol Stop: 06/13/25 21:30 Cefepime HCl (Maxipime 2000mg) 2,000 mg in 20 mls @ 5 mls/min IV Q8H FRANKLIN; Protocol Stop: 05/22/25 02:29 Last Admin: 05/15/25 11:23 Dose: 5 mls/min Vancomycin HCl (Vancomycin Hcl) 1,000 mg in 270 mls @ 200 mls/hr IV Q12H [facility] Stop: 05/22/25 06:59 Last Infusion: 05/15/25 08:56 Dose: Infused Insulin Aspart (Insulin Aspart Per Unit Charge) 0 units SC ACHS FRANKLIN Stop: 06/13/25 21:30 Last Admin: 05/15/25 12:02 Dose: 4 units Lactobacillus Acidophilus (Advanced Probiotic 625 Mg Capsule) 1,250 mg PO DAILY [facility] Stop: 06/14/25 08:59 Last Admin: 05/15/25 08:45 Dose: 1,250 mg Melatonin (Melatonin 3 Mg Tab) 3 mg PO HS PRN PRN Reason: Sleep Stop: 06/13/25 21:30 Miscellaneous (Carbohydrates For Hypoglycemia ) 15 - 30 gm PO UD PRN PRN Reason: Hypoglycemia Protocol Stop: 06/13/25 21:30 Miscellaneous Information (Vancomycin Consult Active) 1 each N/A UD PRN PRN Reason: Consult Stop: 06/13/25 19:24 Ondansetron HCl (Ondansetron Inj 2 Mg/Ml 2 Ml Vial) 4 mg IV Q6H PRN PRN Reason: Nausea Stop: 06/13/25 21:30 Oxycodone HCl (Oxycodone Hcl Ir 5 Mg Tab (Immediate Release)) 5 mg PO Q4H PRN PRN Reason: Severe Pain (Scale 7, 8, 9,10) Stop: 05/28/25 21:30 Polyethylene Glycol (Polyethylene (Miralax) 17 Gm Pack) 17 gm PO DAILY PRN PRN Reason: Constipation Stop: 06/13/25 21:30
--- NOTE | 2025-05-15 22:28 | Vascular Medicine Consultation ---
Date of Consultation May 15, 2025 Assessment & Plan (1) Diabetic ulcer of right foot: 2. Peripheral arterial disease 3. CAD post multivessel stenting 4. Anemia Patient seen today in the setting of slow healing RLE ulceration. He has evidence of cellulitis clinically as well as great toe osteomyelitis on MRI. Right foot perfusion appears compromised but not critical. Foot warm with faint DP pulse and only mildly reduced capillary refill. Arterial duplex reveals heavily calcified right ACTUARY MANAGER and popliteal disease. Has monophasic infrapopliteal waveforms but no apparent obstructive tibial disease. Overall feel current perfusion is borderline for healing his current wounds or possible limited surgical amputation wounds. Patient very adamant he wants to avoid any type of amputation if much as possible. In that setting recommend right lower extremity angiogram and possible endovascular intervention to attempt to optimize arterial perfusion. Patient wishes to think about procedure further and we will re-discuss tomorrow. If wishes to proceed we could potentially do on Tuesday. History of Present Illness Attending Physician: Austin Hollis MD History of Present Illness Mr. Odonnell is a 64-year-old man seen today in hospital due to right great toe, right lateral foot diabetic foot ulcers in the setting of PAD. Prior medical history remarkable for multivessel CAD post multivessel stenting most recently with 2 stents to RCA in the setting of inferior STEMI 03/2022. EF 50% at that time. Has intermittently followed up with Dr. Rankin. Previous care with [facility] for type 2 diabetes with peripheral neuropathy not currently on therapy, last A1c 9.3, hypertension, dyslipidemia. Is ongoing smoker. No prior vascular history. Denies baseline claudication. Wounds present for the last month or so, initially developed toe wound after prolonged walking with dog in too small shoes, lateral wound after stepped on something walking in his home. Started on broad-spectrum IV antibiotics on presentation. MRI suggestive of possible osteo involving distal great toe (CRP 0.89). Recent vascular testing: Arterial duplex 04/2025: Right JARED 0.55, left 1.15. Heavily calcified mid ACTUARY MANAGER with severe stenosis (PSV 380), severe heavily calcified popliteal stenosis. Below the knee vessels widely patent with monophasic flow Allergies Allergy/AdvReac Type Severity Reaction Status Date / Time morphine Allergy Severe RESPIRATORY Verified 05/14/25 18:37 DISTRESS Home Medications Medication Instructions Recorded Confirmed Type aspirin 81 mg tablet,delayed 81 mg PO DAILY 06/01/19 05/14/25 History release vitamin B comp and C no.3 15 mg-10 1 cap PO DAILY 06/01/19 05/14/25 History mg-50 mg-5 mg-300 mg capsule cinnamon bark-chromium picolinate 1 cap PO DAILY 03/30/22 05/14/25 History 500 mg-100 mcg capsule vitamins A,C,K-vsik-wrtljq 4,296 1 cap PO BID 05/14/25 05/14/25 History mcg-226 mg-90 mg capsule (PreserVision AREDS) Patient History Medical History ST elevation myocardial infarction (STEMI) of inferior wall Admitted to intensive care unit DVT prophylaxis Elevated troponin Precordial chest pain Acute electrocardiogram changes Acute SC STEMI (ST elevation myocardial infarction) CAD (coronary artery disease) Surgical History History of cholecystectomy (07/11/13) Family History Mother Coronary heart disease Father Diabetes Social History Smoking Status: Never smoker Tobacco Type: Smokeless Tobacco (Dip or Chew) Do You Dip or Chew Tobacco: Yes; Hx Alcohol Use: No Hx Substance Use: No Preferred Language: Faroese Communication Ability: Effective Beliefs That Will Affect Care: None Current Living Situation: Spouse Feels Safe at Home: Yes Assistive Devices: None Review of Systems Review of Systems: All systems reviewed & are unremarkable except as noted in HPI & below Physical Exam Physical Exam: General: Comfortable, no acute distress Eyes: Sclerae anicteric Lungs: Clear to auscultation bilaterally Cardiac: Regular rate and rhythm, no murmurs, rubs or gallops. Abdomen: Soft, nontender Neuro: Decree sensation to light touch in feet bilaterally Psych: Alert orient x3, normal affect and mood Extremities/Vascular: -- 2+ radial bilaterally -- 1+ bilateral femoral pulses 2+ popliteal pulses bilaterally -- Faint DP pulse bilaterally, 1+ PT pulse on left. Normal capillary fill in 2nd through 4th digits on right -- No edema -- No hyperpigmentation, stasis dermatitis or lipodermatosclerosis -- Ulcer: Right great toe swollen, erythematous, superficial type with >1 cm superficial ulceration with white base, mild yellow drainage, positive odor. Also with <1 cm superficial ulcer with mild surrounding erythema, clear drainage over lateral fifth metatarsal. Results & Data Vital Signs (Past 12 Hours) Vital Signs Temp Pulse Resp BP Pulse Ox O2 Del Method 05/15/25 19:45 Room Air 05/15/25 19:07 98.2 F 81 18 123/72 98 Room Air 05/15/25 15:32 97.3 F L 77 16 137/78 97 Room Air PG Care Time/CCT Total # of Minutes Spent Total Time Spent with Patient: Total time spent is greater than 50% in coordination of care (as documented) at patient's floor/unit and/or counseling patient: Coding Level of Care Code 17218 INT INP/OBS CARE 2/55MIN Diagnoses Diabetic ulcer of right foot E11.621; L97.519
[2025-05-16 06:41] LABS: Hematocrit (blood only) 32.5 % (42.0-52.0); Hemoglobin 10.6 g/dl (14.0-18.0); Mean Corpuscular Hemoglobin 29.5 pg (25.0-34.0); Mean Corpuscular Hgb Conc 32.6 g/dL (32.0-36.0); Mean Corpuscular Volume 90.5 fL (80.0-100.0); Mean Platelet Volume 9.9 fL (9.4-12.4); Platelet Count 228 K/uL (130-400); RDW Coefficient of Variation 14.9 % (11.5-14.5); RDW Standard Deviation 49.4 fL (36.4-46.3); Red Blood Count 3.59 M/uL (4.70-6.10)
[2025-05-16 06:56] LABS: BUN Creatinine Ratio 20.9 (10-20); Calcium 8.4 mg/dl (8.6-10.3); Creatinine Clr Calc Pharmacy 73.5 ml/min; Magnesium 1.9 mg/dl (1.7-2.4); Phosphorus 3.2 mg/dl (2.5-4.9); Potassium 4.3 mmol/L (3.5-5.1)
[2025-05-16] MEDS: VANCOMYCIN LEVEL ONE (07:02)
--- NOTE | 2025-05-16 08:54 | Orthopedic Progress Note ---
Date of Service May 16, 2025 Assessment & Plan (1) Diabetic ulcer of right foot: (2) Diabetic ulcer of right great toe: (3) Hyperlipidemia: (4) DMII (diabetes mellitus, type 2): (5) CAD (coronary artery disease): (6) Diabetic vasculopathy: Plan Juan Antonio is a 64-year-old gentleman who is quite medically complex. As noted in previous notes, he has been dealing with wounds on his right foot underneath his great toe and his fifth toe for the last month or so. Patient notes that he has had a "toe drop" since a recent back surgery and this is never really caused him an issue but because of this he is unable to extend his great toe and he believes that this is why his toe rubbed on the bottom of his shoe and caused an ulcer. Patient has had MRIs done which are concerning for osteomyelitis of his great toe distal phalanx. There is some T2 hyperintensity located within the plantar aspect of the fifth metatarsal head as well. Luckily, on his physical exam, I do not appreciate any deep probing to bone. The patient is insistent that with his home wound care that he has been doing over the last few weeks his wounds have improved significantly. Patient did have arterial ultrasounds done measuring ABIs and his right foot JARED is 0.55. Given the patient's continued nicotine use, his obviously limited vascular status of his right lower extremity, I am very concerned about not only his potential ability to heal either or both of these ulcers, but also his ability to heal any potential amputation in the foot. At this point, I think we have a couple of options as it relates to management of his foot wounds. Option 1: Cautious observation with local wound care and antibiotics and close outpatient follow-up to monitor the wounds and there are potential healing Option 2: Right great toe proximal phalanx amputation with debridement of ulcer on the plantar fifth metatarsal head Option 3: Right transmetatarsal amputation Given the patient's poor vascular status, I think that his body's ability to heal the ulcers or any type of limited debridement/amputation is quite low. I think that the most distal potential amputation site would be a transmetatarsal amputation, however, again, given his poor vascular status I think that his chances of healing a transmetatarsal amputation is quite low as well. I did discuss this with the patient in great detail today. He understands that there is a potential to begin a "amputation cascade" if he does undergo an amputation and is unable to heal that. At this time, the patient is not floridly septic, and can undergo some medical optimization. The patient notes at this time he is not willing to consent to any amputation until he hears from additional providers. I will plan to continue to follow along during this patients hospitalization. Should the patient wish to continue local wound care with cautious observation, I do think that and following up with a wharf laborer is very reasonable. I would recommend he see Dr. Slade. Of course, I will make myself available to him for any additional questions or for potential higher level amputation. Admission and Anticipated Discharge Date Admission Date: May 14, 2025 Subjective Patient evaluated by endovascular team yesterday. He is planning to speak with them again today about possible intervention. No acute changes since yesterday. Review of Systems Review of Systems: All systems reviewed & are unremarkable except as noted in HPI & below Physical Exam Physical Exam: On physical examination, the patient has a warm foot but his pulses are not p alpable. He has superficial appearing wounds located on the plantar tuft of his great toe as well as at the plantar aspect of his fifth metatarsal head. These do not probe particularly deep. He lacks the ability to perform great toe extension and notes that he has lack of stability since his back surgery. His feet are numb bilaterally in a stocking-like distribution which is at baseline per the patient. Results & Data Vital Signs (Past 12 Hours) Vital Signs Temp Pulse Resp BP Pulse Ox O2 Del Method 05/16/25 07:51 36.8 C 73 20 144/76 H 97 Room Air
--- NOTE | 2025-05-16 09:26 | Vascular Medicine ProgressNote ---
Date of Service May 16, 2025 Assessment & Plan (1) Diabetic ulcer of right foot: Plan: 2. Peripheral arterial disease 3. CAD post multivessel stenting 4. Anemia Repeat discussion today regarding RLE angiogram and possible revascularization. Patient agreeable to proceeding with procedure. Plan for procedure tomorrow morning. Please keep NPO past midnight. Additional recommendations following angiography. Admission and Anticipated Discharge Date Admission Date: May 14, 2025 Subjective Reports mild discomfort in RT foot today. No other new symptoms. Review of Systems Review of Systems: All systems reviewed & are unremarkable except as noted in HPI & below Physical Exam Physical Exam: General: Comfortable, no acute distress Eyes: Sclerae anicteric Lungs: Clear to auscultation bilaterally Cardiac: Regular rate and rhythm, no murmurs Abdomen: Soft, nontender Neuro: Decree sensation to light touch in feet bilaterally Psych: Alert orient x3, normal affect and mood Extremities/Vascular: -- 2+ radial bilaterally -- Nonpalpable DP/PT pulses on RT. Sluggish capillary refill. -- No edema -- No hyperpigmentation, stasis dermatitis or lipodermatosclerosis -- Ulcer: Right great toe dressed - no surrounding erythema Results & Data Vital Signs (Past 12 Hours) Vital Signs Temp Pulse Resp BP Pulse Ox O2 Del Method 05/16/25 07:51 98.2 F 73 20 144/76 H 97 Room Air PG Care Time/CCT Total # of Minutes Spent Total Time Spent with Patient: Total time spent is greater than 50% in coordination of care (as documented) at patient's floor/unit and/or counseling patient: Coding Level of Care Code 11221 SUB INP/OBS CARE 2/35MIN Diagnoses Diabetic ulcer of right foot E11.621; L97.519
--- NOTE | 2025-05-16 09:37 | Pharmacy Report ---
Pharmacy PK ABX Note - Date of Service May 16, 2025 - Assessment and Plan Assessment 05/16: * Random vanco level obtained 05/16 @ 0624 resulted at 11.7 mcg/mL. Predicted AUC at steady state: 531 mg/L.hr. Ok to continue current dose. * Preliminary BC with no reported growth at 24 hour karen. Preliminary toe culture with likely mixed skin microbiota. 05/15: * 64 year old M receiving vancomycin and cefepime for suspected osteo of toe. Cultures pending. Plan Vancomycin * Continue current regimen: 1000 mg IV every 12 hours * This is predicted to achieve target AUC/LOCO of 400-600 mg/L.hr Pharmacy will continue to follow and will adjust dose/frequency as necessary. Thank you.
--- NOTE | 2025-05-16 14:33 | Hospitalist Progress Note ---
Date of Service May 16, 2025 Assessment & Plan (1) Diabetic ulcer of right foot: (2) DMII (diabetes mellitus, type 2): (3) CAD (coronary artery disease): (4) Hyperlipidemia: Plan This is a 64-year-old male who has a significant past medical history of CAD, T2DM, diabetic neuropathy, diabetic retinopathy, HTN and HLD who presents to ED secondary to worsening right lower foot wounds x 1 month. #Diabetic Ulcer of plantar aspect of R great toe and base of R 5th toe, POA #Suspected osteomyelitis of R great toe #Diabetic neuropathy XR Foot - 1. No evidence of acute fracture, or dislocation. No lytic or sclerotic osseous lesions. 2. Soft tissue edema at the forefoot mainly surrounding 1st toe and the lateral aspect of the foot adjacent to the metatarsophalangeal joint. Arterial atherosclerotic wall calcifications. MRI Foot - 1. Diffuse subcutaneous edema in dorsum of foot. 2. Diffuse muscles edema in plantar compartment. 3. Suspicious bone marrow edema in entire distal phalanx of great toe- possible osteomyelitis. 4. Skin and subcutaneous thickening with suspicious ulceration seen overlying 1st toe. 5. Mild interphalangeal and meta-tarsophalangeal joint effusion in 1st toe. Arterial duplex of RLE- 1. Elevated velocity at the proximal right common femoral artery (PSV 380.6 cm/sec) is consistent with ?70% stenosis. 2. Post-stenotic elevated PSV at the proximal popliteal artery is also seen, suggets significant stenosis. 3. Abnormal monophasic waveforms as detailed. Findings suggest severe peripheral vascular disease. 4. JARED on the right is reduced, consistent with moderate PAD. 5. CTA correlation is advised as clinically warranted. Blood and wound cultures obtained - pending Consulted podiatry/ orthopedics - discussed w/ Dr. Lima - pt does not wish any amputation at this time. Recommend vascular surgery eval for planning of future treatment -> consulted Dr. Avelar - plan for RLE angiogram and possible revascularization tmrw , NPO after MN Empiric IV Cefepime and vancomycin for now Consulted wound care #T2DM pt previously on insulin and jardiance; however stopped taking in August due to loss of insurance A1c 9.3, place on novolog SS for now, bsg in 70s in ED. CM consulted to evaluate for medicare/medicaid given age vs CVIM #CAD #HTN #HLD hx of EDGARD in 2021 with inferior RI, dx with severe CAD previously was on ASA, plavix 75mg daily, metoprolol succinate 25mg bid, lisinopril 5mg daily and crestor 40mg HS he stopped everything but ASA but to inability to afford/lack of insurance again will need discussion with CM regarding options and possible re evaluation for CVIM consider resuming some medications if felt pt is going to be compliant and able to obtain as outpatient #DVT ppx: none for now until seen by podiatry/ and vascular FULL CODE PCP: none currently Dispo: med/surg Admission and Anticipated Discharge Date Admission Date: May 14, 2025 Subjective Pt seen in follow up of foot wounds, possible osteo Pt seen by orthopedics (Dr. Lima) - pt does not want any amputation, discussed that vascular surg. involvement would be beneficial for future planning of treatment of the pt -> consulted vasc. Dr. Avelar - plan for RLE angiogram and possible revascularization tmrw Currently pt is lying in bed in NAD, confirms that he does not wish amputation and would try any other route first Denies fevers, chills, chest pain, shortness of breath, abd. pain, n/v Review of Systems Review of Systems: All systems reviewed & are unremarkable except as noted in Subjective Physical Exam Physical Exam: Constitutional: WD/WN M in NAD, sitting up in bed, pleasant, conversing easily Head: Normocephalic, Atraumatic Eyes: conjunctivae normal, anicteric sclerae ENMT: external ear and nose normal, poor dentition Neck: normal visual inspection Respiratory: normal respiratory effort, lungs clear to auscultation, no wheeze, rales, rhonchi. Cardiovascular: RRR, no murmur, no edema Chest: normal inspection of chest Abdomen: normal bowel sounds, soft, nontender Musculoskeletal: no LE edema, moves extremities Skin: no rashes, warm and dry + Distal aspect of R great toe wound and R 5th toe plantar base wound, photos in EMR Neurologic: PERRL, EOMI, no face palsy, no dysarthria, answers appropriately, moves all extremities Psychiatric: A+Ox3, euthymic affect Results & Data Results & Data Vital Signs (Past 12 Hours) Vital Signs Temp Pulse Pulse Resp BP Pulse Ox O2 Del Method 05/16/25 12:43 36.7 C 75 16 135/76 96 Room Air 05/16/25 07:51 36.8 C 73 20 144/76 H 97 Room Air Laboratory Results 05/16/25 05/16/25 05/16/25 Range/Units 11:44 07:17 06:24 WBC 3.50 L (4.8-10.8) K/ul RBC 3.59 L (4.70-6.10) M/uL Hgb 10.6 L (14.0-18.0) g/dl Hct 32.5 L (42.0-52.0) % MCV 90.5 (80.0-100.0) fL MCH 29.5 (25.0-34.0) pg MCHC 32.6 (32.0-36.0) g/dL RDW Std Deviation 49.4 H (36.4-46.3) fL RDW Coeff of Saroj 14.9 H (11.5-14.5) % Plt Count 228 (130-400) K/uL MPV 9.9 (9.4-12.4) fL Sodium 137 (136-145) mmol/L Potassium 4.3 (3.5-5.1) mmol/L Chloride 104 (98-107) mmol/L Carbon Dioxide 27 (21-32) mmol/L Anion Gap 6 (3-11) BUN 23 (6-23) mg/dl Creatinine 1.10 (0.6-1.4) mg/dl Est Cr Clr Drug Dosing 73.5 ml/min eGFR 74.50 BUN/Creatinine Ratio 20.9 H (10-20) Glucose 155 H (70-99(Fasting)) mg/dl POC Glucose 201 H 169 H (70-99) mg/dl Calcium 8.4 L (8.6-10.3) mg/dl Phosphorus 3.2 (2.5-4.9) mg/dl Magnesium 1.9 (1.7-2.4) mg/dl Random Vancomycin 11.7 (10-20) mcg/ml 05/15/25 05/15/25 Range/Units 20:30 16:43 WBC (4.8-10.8) K/ul RBC (4.70-6.10) M/uL Hgb (14.0-18.0) g/dl Hct (42.0-52.0) % MCV (80.0-100.0) fL MCH (25.0-34.0) pg MCHC (32.0-36.0) g/dL RDW Std Deviation (36.4-46.3) fL RDW Coeff of Saroj (11.5-14.5) % Plt Count (130-400) K/uL MPV (9.4-12.4) fL Sodium (136-145) mmol/L Potassium (3.5-5.1) mmol/L Chloride (98-107) mmol/L Carbon Dioxide (21-32) mmol/L Anion Gap (3-11) BUN (6-23) mg/dl Creatinine (0.6-1.4) mg/dl Est Cr Clr Drug Dosing ml/min eGFR BUN/Creatinine Ratio (10-20) Glucose (70-99(Fasting)) mg/dl POC Glucose 186 H 167 H (70-99) mg/dl Calcium (8.6-10.3) mg/dl Phosphorus (2.5-4.9) mg/dl Magnesium (1.7-2.4) mg/dl Random Vancomycin (10-20) mcg/ml Medications Administered Current Inpatient Medications Acetaminophen (Acetaminophen 325 Mg Tab) 650 mg PO Q4H PRN PRN Reason: Pain or Fever Stop: 06/13/25 21:30 Last Admin: 05/16/25 03:03 Dose: 650 mg Aspirin (Aspirin 81 Mg Ectab) 81 mg PO DAILY [place] Stop: 06/14/25 08:59 Last Admin: 05/16/25 07:30 Dose: 81 mg Dextrose (Dextrose 50% 50 Ml Syringe) 25 - 50 ml IV UD PRN; Protocol PRN Reason: Hypoglycemia Protocol Stop: 06/13/25 21:30 Famotidine (Famotidine 20 Mg Tab) 20 mg PO DAILY PRN PRN Reason: Heartburn Stop: 06/13/25 21:30 Glucagon (Glucagon For Inj 1 Mg Vial) 1 mg SQ UD PRN; Protocol PRN Reason: Hypoglycemia Protocol Stop: 06/13/25 21:30 Glucose (Glucose 40% Gel 15 Gm Tube) 15 - 30 gm PO UD PRN; Protocol PRN Reason: Hypoglycemia Protocol Stop: 06/13/25 21:30 Glucose (Glucose 10 Tab/Tube) 4 - 8 tab PO UD PRN; Protocol PRN Reason: Hypoglycemia Protocol Stop: 06/13/25 21:30 Cefepime HCl (Maxipime 2000mg) 2,000 mg in 20 mls @ 5 mls/min IV Q8H [facility]; Protocol Stop: 05/22/25 02:29 Last Admin: 05/16/25 10:36 Dose: 5 mls/min Vancomycin HCl (Vancomycin Hcl) 1,000 mg in 270 mls @ 200 mls/hr IV Q12H [place] Stop: 05/22/25 06:59 Last Infusion: 05/16/25 08:48 Dose: Infused Insulin Aspart (Insulin Aspart Per Unit Charge) 0 units SC ACHS [place] Stop: 06/13/25 21:30 Last Admin: 05/16/25 12:29 Dose: 4 units Lactobacillus Acidophilus (Advanced Probiotic 625 Mg Capsule) 1,250 mg PO DAILY [facility] Stop: 06/14/25 08:59 Last Admin: 05/16/25 07:31 Dose: 1,250 mg Melatonin (Melatonin 3 Mg Tab) 3 mg PO HS PRN PRN Reason: Sleep Stop: 06/13/25 21:30 Miscellaneous (Carbohydrates For Hypoglycemia ) 15 - 30 gm PO UD PRN PRN Reason: Hypoglycemia Protocol Stop: 06/13/25 21:30 Miscellaneous Information (Vancomycin Consult Active) 1 each N/A UD PRN PRN Reason: Consult Stop: 06/13/25 19:24 Ondansetron HCl (Ondansetron Inj 2 Mg/Ml 2 Ml Vial) 4 mg IV Q6H PRN PRN Reason: Nausea Stop: 06/13/25 21:30 Oxycodone HCl (Oxycodone Hcl Ir 5 Mg Tab (Immediate Release)) 5 mg PO Q4H PRN PRN Reason: Severe Pain (Scale 7, 8, 9,10) Stop: 05/28/25 21:30 Polyethylene Glycol (Polyethylene (Miralax) 17 Gm Pack) 17 gm PO DAILY PRN PRN Reason: Constipation Stop: 06/13/25 21:30
--- NOTE | 2025-05-17 07:02 | Pre Anesthesia Assessment ---
Date of Service May 17, 2025 Pre Sedation Assessment Vital Signs Temp Pulse Pulse Resp BP Pulse Ox O2 Del Method 05/16/25 21:46 Room Air 05/16/25 20:31 97.9 F 71 18 157/84 H 98 Room Air 05/16/25 14:36 98.1 F 74 18 109/65 98 Room Air 05/16/25 12:43 98.1 F 75 16 135/76 96 Room Air 05/16/25 07:51 98.2 F 73 20 144/76 H 97 Room Air Cardiovascular + regular rate Respiratory + respiratory effort normal Pre-Sedation Airway Assessment Smoking Status: Never smoker Hx Sleep Apnea: No Hx Difficult Intubation: No Short, Thick Neck: No Thyromental Distance: > or= 3.5 Finger Breadths Oral Cavity: + Dental Abnormalities Mallampati Class: III ASA: ASA3 Procedure Planning Contraindications for Sedation: none Current Medications Reviewed: Yes Notes The planned sedation has been discussed with the patient. Informed Consent was obtained. I have identified the patient, determined the appropriateness of sedation and have assessed the patient immediately prior to the procedure. All medicine(s) and interventions are by my order.
[2025-05-17] MEDS: MIDAZOLAM HCL 1 MG/ML 2ML VIAL ONE ×3 (08:57→09:58)
[2025-05-17] MEDS: LIDOCAINE 1% LOCAL 20 ML VIAL ONE (08:57)
[2025-05-17] MEDS: NITROGLYCERIN/D5W 100MCG/ML 20ML SYR ONE (08:58)
[2025-05-17] MEDS: fentaNYL citrate PF 100 MCG/2 ML VIAL ONE ×3 (08:59→10:48)
[2025-05-17] MEDS: HEPARIN (PORCINE) 1000 UNIT/ML 10 ML (CATH LAB USE ONLY) ONE ×2 (09:28→10:48)
--- NOTE | 2025-05-17 10:40 | Post Anesthesia Assessment ---
Date of Service May 17, 2025 Post Sedation Assessment Vital Signs Temp Pulse Pulse Resp BP Pulse Ox O2 Del Method 05/16/25 21:46 Room Air 05/16/25 20:31 97.9 F 71 18 157/84 H 98 Room Air 05/16/25 14:36 98.1 F 74 18 109/65 98 Room Air 05/16/25 12:43 98.1 F 75 16 135/76 96 Room Air Recovery Score Activity: Moves 4 extremities Respiration: Deep Breath/Cough Circulation: +/-20% PreAnes Value Consciousness: Fully Awake Oxygen Saturation: O2 needed for >90% Discharge Sedation Level of Care: Fast Track Phase II
[2025-05-17] MEDS: CLOPIDOGREL BISULFATE 300 MG TAB ONE (10:49)
[2025-05-17] MEDS: OPTIRAY 350 ONE (10:49)
--- NOTE | 2025-05-17 11:05 | Endovascular Procedure Note ---
[facility] Endovascular Procedure Rpt Pre & Post Diagnosis Peripheral artery disease I identified the patient and participated in the time-out.: No Procedure Operation Date: 05/17/25 08:00 Actual Procedures p Cineradiography w/Routine Exam - Jose G Avelar MD Surgeon Jose G Avelar MD Correctional Therapy Director Diamond Kowalski Estimated Blood Loss 25 Findings See Below Abdominal aorta--no significant aneurysmal or stenotic disease Left lower extremity-- -Common iliacwidely patent -External iliacwidely patent -Internal iliacwidely patent -EXTERIOR DESIGNER, profunda widely patent Right lower extremity-- -Common iliacwidely patent -External iliacwidely patent -Internal iliacwidely patent -CFAheavily calcified, nodular, focal 95+% stenosis in mid to distal EXTERIOR DESIGNER with sluggish downstream flow -SFAwidely patent -[id number]%, calcified mid stenosis -[id number]% proximal to mid disease, 100% distal occlusion. Reconstitutes above the ankle via bridging collaterals with sluggish flow into DPA. -PTAwidely patent into the foot -Peronealwidely patent the ankle Anesthesia Type RN Sedation Radiation Exposure (mGv) Radiation (mGy): 694 Contrast Contrast: 190 Complications none Disposition Disposition: PCU Description of Procedure Left EXTERIOR DESIGNER access obtained under ultrasound guidance with micropuncture, short 5Fr sheath placed Abdominal aortogram and proximal right lower extremity angiogram performed with RIM catheter. Selective angiography with 0.35 seeker catheter placed in right SFA 6 Fr 65 cm destination sheath placed from left EXTERIOR DESIGNER to proximal right EXTERIOR DESIGNER. Mid popliteal stenosis crossed with 0.14 command wire Mid popliteal stenosis dilated with 3.0 balloon, mid EXTERIOR DESIGNER dilated with 3.0 balloon Shockwave intravascular lithotripsy of popliteal artery with 5.0 balloon (320 pulses), additional shockwave with 5.0 balloon to right EXTERIOR DESIGNER (80 pulses). Popliteal artery treated with 5.0 x 100 mm Lutonix drug-eluting balloon Popliteal artery expanded well with no evidence of dissection and decision made to forego stenting. Below the knee noted to have sluggish flow 0.14 wire navigated into SURYA and injection into SURYA via 0.18 Navicross catheter showed short mid to distal 100% occlusion with bridging collaterals. 0.14 wire navigated across distal SURYA occlusion into PDA Proximal to distal SURYA dilated with 2.5 mm balloon. SURYA expanded well with no apparent dissection. 6 Fr sheath exchanged for 7 Fr 45 cm destination sheath Right EXTERIOR DESIGNER further treated with shockwave intravascular lithotripsy 8 mm balloon (300 pulses) EXTERIOR DESIGNER expanded well with minimal residual stenosis and no apparent gradient across EXTERIOR DESIGNER. No evidence of dissection. Post procedure good angiographic result, with brisk 3 vessel run-off. Contrast used: 190 Moderate sedation: [id number] Access closure: Perclose Summary: 1. Right lower extremity --95+% calcified mid EXTERIOR DESIGNER, 90% mid popliteal. 100% short distal SURYA occlusion with bridging collaterals. CREDENTIALS SPECIALIST, peroneal widely patent 2. Left lower extremity --iliacs, EXTERIOR DESIGNER widely patent 3. Successful angioplasty of right EXTERIOR DESIGNER with intravascular lithotripsy (shockwave 8 mm). 4. Successful angioplasty of right popliteal stenosis with intravascular lithotripsy (shockwave 5 mm) and drug-eluting balloon (5.0 x 100 Lutonix). 5. Successful angioplasty of right anterior tibial artery occlusion with 2.5 balloon Recommendations: Continue DAPT with ASA/Clopidogrel for 1 months Follow-up non-invasive vascular testing in 2 weeks. I attest to the content of the Intraoperative Record and any orders documented therein. Any exceptions are noted below. Vascular Charges Angiography/Venography Procedure 1: Angiography/Venography charges: [id number] Initial 3rd order or selective abd, pelvic, or LE branch Procedure 2: Angiography/Venography charges: [id number] Aortography, abd + b/l iliofem LE, catheter, radiological S&I Lower Extremity Interventions Procedure 1: Lower Extremity Intervention charges: [id number] Angioplasty, femoral, popliteal artery(s), unilateral Procedure 2: Lower Extremity Intervention charges: [id number] Angioplasty, tibial, peroneal artery, unilateral, initial vessel Additional Services Procedure 1: Additional Services Charges: 95273 Moderate sedation initial 15 min Procedure 2: Additional Services Charges: 78926 Moderate sedation, each additional 15 min Procedure 3: Additional Services Charges: 37247 Ultrasound guidance - vascular access
[2025-05-17 11:49] LABS: Hematocrit (blood only) 34.7 % (42.0-52.0); Hemoglobin 11.2 g/dl (14.0-18.0); Mean Corpuscular Hemoglobin 29.5 pg (25.0-34.0); Mean Corpuscular Hgb Conc 32.3 g/dL (32.0-36.0); Mean Corpuscular Volume 91.3 fL (80.0-100.0); Mean Platelet Volume 10.3 fL (9.4-12.4); Platelet Count 229 K/uL (130-400); White Blood Count 4.55 K/ul (4.8-10.8)
[2025-05-17 12:01] LABS: BUN Creatinine Ratio 20.3 (10-20); Calcium 8.7 mg/dl (8.6-10.3); Creatinine Clr Calc Pharmacy 68.5 ml/min; Phosphorus 2.6 mg/dl (2.5-4.9); Potassium 4.7 mmol/L (3.5-5.1)
--- NOTE | 2025-05-17 12:23 | Hospitalist Progress Note ---
Date of Service May 17, 2025 Assessment & Plan (1) Diabetic ulcer of right foot: (2) DMII (diabetes mellitus, type 2): (3) CAD (coronary artery disease): (4) Hyperlipidemia: Plan This is a 64-year-old male who has a significant past medical history of CAD, T2DM, diabetic neuropathy, diabetic retinopathy, HTN and HLD who presents to ED secondary to worsening right lower foot wounds x 1 month. #Diabetic Ulcer of plantar aspect of R great toe and base of R 5th toe, POA #Suspected osteomyelitis of R great toe #Diabetic neuropathy XR Foot - 1. No evidence of acute fracture, or dislocation. No lytic or sclerotic osseous lesions. 2. Soft tissue edema at the forefoot mainly surrounding 1st toe and the lateral aspect of the foot adjacent to the metatarsophalangeal joint. Arterial atherosclerotic wall calcifications. MRI Foot - 1. Diffuse subcutaneous edema in dorsum of foot. 2. Diffuse muscles edema in plantar compartment. 3. Suspicious bone marrow edema in entire distal phalanx of great toe- possible osteomyelitis. 4. Skin and subcutaneous thickening with suspicious ulceration seen overlying 1st toe. 5. Mild interphalangeal and meta-tarsophalangeal joint effusion in 1st toe. Arterial duplex of RLE- 1. Elevated velocity at the proximal right common femoral artery (PSV 380.6 cm/sec) is consistent with ?70% stenosis. 2. Post-stenotic elevated PSV at the proximal popliteal artery is also seen, suggets significant stenosis. 3. Abnormal monophasic waveforms as detailed. Findings suggest severe peripheral vascular disease. 4. JARED on the right is reduced, consistent with moderate PAD. 5. CTA correlation is advised as clinically warranted. Blood cultx - NGTD and wound cultures - mixed probable skin amandeep Consulted podiatry/ orthopedics - discussed w/ Dr. Lima - pt does not wish any amputation at this time. Recommend vascular surgery eval for planning of future treatment -> consulted Dr. Avelar -> now s/p RLE angiogram and revascularization Per Dr. Avelar Summary: 1. Right lower extremity --95+% calcified mid GATE CLERK, 90% mid popliteal. 100% short distal SURYA occlusion with bridging collaterals. PROGRAM DIRECTOR/TRAFFIC DIRECTOR, peroneal widely patent 2. Left lower extremity --iliacs, GATE CLERK widely patent 3. Successful angioplasty of right GATE CLERK with intravascular lithotripsy (shockwave 8 mm). 4. Successful angioplasty of right popliteal stenosis with intravascular lithotripsy (shockwave 5 mm) and drug-eluting balloon (5.0 x 100 Lutonix). 5. Successful angioplasty of right anterior tibial artery occlusion with 2.5 balloon Recommendations: Continue DAPT with ASA/Clopidogrel for 1 months Follow-up non-invasive vascular testing in 2 weeks. Empiric IV Cefepime and vancomycin for now Consulted wound care 05/17 Discussed w/ ID - if no debridement planned and no positive cultures - can DC on 2 weeks of PO augmentin and cipro #T2DM pt previously on insulin and jardiance; however stopped taking in August due to loss of insurance A1c 9.3, place on novolog SS for now, bsg in 70s in ED. CM consulted to evaluate for medicare/medicaid given age vs CVIM elementary educator consulted #CAD #HTN #HLD hx of EDGARD in 2021 with inferior WA, dx with severe CAD previously was on ASA, plavix 75mg daily, metoprolol succinate 25mg bid, lisinopril 5mg daily and crestor 40mg HS he stopped everything but ASA but to inability to afford/lack of insurance Now on asa and plavix and prices checked - plavix is $4.90 Plan to start statin Outpt ACEi FULL CODE PCP: none currently -> pt will follow up w/ Melly PCP, appointment was set up Dispo: med/surg Admission and Anticipated Discharge Date Admission Date: May 14, 2025 Subjective Pt seen in follow up of foot wounds, possible osteo Pt seen by orthopedics (Dr. Lima) - pt does not want any amputation, discussed that vascular surg. involvement would be beneficial for future planning of treatment of the pt -> consulted vasc. Dr. Avelar - bow pt s/p RLE angiogram and possible revascularization Currently pt is lying in bed in NAD, confirms that he does not wish amputation and would try any other route first Denies fevers, chills, chest pain, shortness of breath, abd. pain, n/v discussed w/ maryse, sent Rx for meds including plavix - so far all meds are low feliciano, plavix $4.90 Review of Systems Review of Systems: All systems reviewed & are unremarkable except as noted in Subjective Physical Exam Physical Exam: Constitutional: WD/WN M in NAD, lying in bed Head: Normocephalic, Atraumatic Eyes: conjunctivae normal, anicteric sclerae ENMT: external ear and nose normal, poor dentition Neck: normal visual inspection Respiratory: normal respiratory effort, lungs clear to auscultation, no wheeze, rales, rhonchi. Cardiovascular: RRR, no murmur, no edema Chest: normal inspection of chest Abdomen: normal bowel sounds, soft, nontender Musculoskeletal: no LE edema, moves extremities Skin: no rashes, warm and dry + Distal aspect of R great toe wound and R 5th toe plantar base wound, photos in EMR Neurologic: PERRL, EOMI, no face palsy, no dysarthria, answers appropriately, moves all extremities Psychiatric: A+Ox3, euthymic affect Results & Data Results & Data Vital Signs (Past 12 Hours) Vital Signs Temp Pulse Resp BP Pulse Ox O2 Del Method 05/17/25 11:49 36.5 C 75 18 132/70 96 Room Air 05/17/25 11:34 36.4 C L 74 18 126/81 99 Room Air 05/17/25 11:00 74 18 116/76 98 Room Air 05/17/25 10:45 73 18 130/71 98 Room Air Laboratory Results 05/17/25 05/17/25 05/17/25 Range/Units 12:00 11:21 10:23 WBC 4.55 L (4.8-10.8) K/ul RBC 3.80 L (4.70-6.10) M/uL Hgb 11.2 L (14.0-18.0) g/dl Hct 34.7 L (42.0-52.0) % MCV 91.3 (80.0-100.0) fL MCH 29.5 (25.0-34.0) pg MCHC 32.3 (32.0-36.0) g/dL RDW Std Deviation 50.0 H (36.4-46.3) fL RDW Coeff of Saroj 15.0 H (11.5-14.5) % Plt Count 229 (130-400) K/uL MPV 10.3 (9.4-12.4) fL Activ Coag Time Kaolin 239 H (94-140) SECONDS Sodium 134 L (136-145) mmol/L Potassium 4.7 (3.5-5.1) mmol/L Chloride 103 (98-107) mmol/L Carbon Dioxide 25 (21-32) mmol/L Anion Gap 6 (3-11) BUN 24 H (6-23) mg/dl Creatinine 1.18 (0.6-1.4) mg/dl Est Cr Clr Drug Dosing 68.5 ml/min eGFR 68.48 BUN/Creatinine Ratio 20.3 H (10-20) Glucose 213 H (70-99(Fasting)) mg/dl POC Glucose 197 H (70-99) mg/dl Calcium 8.7 (8.6-10.3) mg/dl Phosphorus 2.6 (2.5-4.9) mg/dl Magnesium 2.0 (1.7-2.4) mg/dl 05/17/25 05/17/25 05/17/25 Range/Units 09:55 09:20 06:01 WBC (4.8-10.8) K/ul RBC (4.70-6.10) M/uL Hgb (14.0-18.0) g/dl Hct (42.0-52.0) % MCV (80.0-100.0) fL MCH (25.0-34.0) pg MCHC (32.0-36.0) g/dL RDW Std Deviation (36.4-46.3) fL RDW Coeff of Saroj (11.5-14.5) % Plt Count (130-400) K/uL MPV (9.4-12.4) fL Activ Coag Time Kaolin 216 H 199 H (94-140) SECONDS Sodium (136-145) mmol/L Potassium (3.5-5.1) mmol/L Chloride (98-107) mmol/L Carbon Dioxide (21-32) mmol/L Anion Gap (3-11) BUN (6-23) mg/dl Creatinine (0.6-1.4) mg/dl Est Cr Clr Drug Dosing ml/min eGFR BUN/Creatinine Ratio (10-20) Glucose (70-99(Fasting)) mg/dl POC Glucose 180 H (70-99) mg/dl Calcium (8.6-10.3) mg/dl Phosphorus (2.5-4.9) mg/dl Magnesium (1.7-2.4) mg/dl 05/16/25 05/16/25 Range/Units 20:34 16:31 WBC (4.8-10.8) K/ul RBC (4.70-6.10) M/uL Hgb (14.0-18.0) g/dl Hct (42.0-52.0) % MCV (80.0-100.0) fL MCH (25.0-34.0) pg MCHC (32.0-36.0) g/dL RDW Std Deviation (36.4-46.3) fL RDW Coeff of Saroj (11.5-14.5) % Plt Count (130-400) K/uL MPV (9.4-12.4) fL Activ Coag Time Kaolin (94-140) SECONDS Sodium (136-145) mmol/L Potassium (3.5-5.1) mmol/L Chloride (98-107) mmol/L Carbon Dioxide (21-32) mmol/L Anion Gap (3-11) BUN (6-23) mg/dl Creatinine (0.6-1.4) mg/dl Est Cr Clr Drug Dosing ml/min eGFR BUN/Creatinine Ratio (10-20) Glucose (70-99(Fasting)) mg/dl POC Glucose 245 H 186 H (70-99) mg/dl Calcium (8.6-10.3) mg/dl Phosphorus (2.5-4.9) mg/dl Magnesium (1.7-2.4) mg/dl Medications Administered Current Inpatient Medications Acetaminophen (Acetaminophen 325 Mg Tab) 650 mg PO Q4H PRN PRN Reason: Pain or Fever Stop: 06/13/25 21:30 Last Admin: 05/16/25 18:43 Dose: 650 mg Aspirin (Aspirin 81 Mg Ectab) 81 mg PO DAILY [place]LIN Stop: 06/14/25 08:59 Last Admin: 05/16/25 07:30 Dose: 81 mg Clopidogrel Bisulfate (Clopidogrel Bisulfate 75 Mg Tab) 75 mg PO QAM [facility] Stop: 06/17/25 08:59 Dextrose (Dextrose 50% 50 Ml Syringe) 25 - 50 ml IV UD PRN; Protocol PRN Reason: Hypoglycemia Protocol Stop: 06/13/25 21:30 Famotidine (Famotidine 20 Mg Tab) 20 mg PO DAILY PRN PRN Reason: Heartburn Stop: 06/13/25 21:30 Glucagon (Glucagon For Inj 1 Mg Vial) 1 mg SQ UD PRN; Protocol PRN Reason: Hypoglycemia Protocol Stop: 06/13/25 21:30 Glucose (Glucose 40% Gel 15 Gm Tube) 15 - 30 gm PO UD PRN; Protocol PRN Reason: Hypoglycemia Protocol Stop: 06/13/25 21:30 Glucose (Glucose 10 Tab/Tube) 4 - 8 tab PO UD PRN; Protocol PRN Reason: Hypoglycemia Protocol Stop: 06/13/25 21:30 Cefepime HCl (Maxipime 2000mg) 2,000 mg in 20 mls @ 5 mls/min IV Q8H FRANKLIN; Protocol Stop: 05/22/25 02:29 Last Admin: 05/17/25 02:24 Dose: 5 mls/min Vancomycin HCl (Vancomycin Hcl) 1,000 mg in 270 mls @ 200 mls/hr IV Q12H [place] Stop: 05/22/25 06:59 Last Infusion: 05/17/25 11:33 Dose: Infused Insulin Aspart (Insulin Aspart Per Unit Charge) 0 units SC ACHS [place]LIN Stop: 06/13/25 21:30 Last Admin: 05/17/25 11:31 Dose: Not Given Lactobacillus Acidophilus (Advanced Probiotic 625 Mg Capsule) 1,250 mg PO DAILY FRANKLIN Stop: 06/14/25 08:59 Last Admin: 05/16/25 07:31 Dose: 1,250 mg Melatonin (Melatonin 3 Mg Tab) 3 mg PO HS PRN PRN Reason: Sleep Stop: 06/13/25 21:30 Miscellaneous (Carbohydrates For Hypoglycemia ) 15 - 30 gm PO UD PRN PRN Reason: Hypoglycemia Protocol Stop: 06/13/25 21:30 Miscellaneous Information (Vancomycin Consult Active) 1 each N/A UD PRN PRN Reason: Consult Stop: 06/13/25 19:24 Ondansetron HCl (Ondansetron Inj 2 Mg/Ml 2 Ml Vial) 4 mg IV Q6H PRN PRN Reason: Nausea Stop: 06/13/25 21:30 Oxycodone HCl (Oxycodone Hcl Ir 5 Mg Tab (Immediate Release)) 5 mg PO Q4H PRN PRN Reason: Severe Pain (Scale 7, 8, 9,10) Stop: 05/28/25 21:30 Polyethylene Glycol (Polyethylene (Miralax) 17 Gm Pack) 17 gm PO DAILY PRN PRN Reason: Constipation Stop: 06/13/25 21:30
[2025-05-17] MEDS ORDERED: LIDOCAINE 2% JELLY 5 ML TUBE EXT PRN (15:14)
[2025-05-17] MEDS ORDERED: PHARMACY GLYCEMIC MGMT CONSULT PRN (16:31)
[2025-05-17] MEDS: LANTUS PER UNIT CHARGE SC ONE (17:09)
[2025-05-17] MEDS: oxyCODONE HCL IR 5 MG TAB (IMMEDIATE RELEASE) PO PRN (18:20)
[2025-05-18 06:13] LABS: Hematocrit (blood only) 36.7 % (42.0-52.0); Hemoglobin 11.8 g/dl (14.0-18.0); Mean Corpuscular Hemoglobin 29.1 pg (25.0-34.0); Mean Corpuscular Hgb Conc 32.2 g/dL (32.0-36.0); Mean Corpuscular Volume 90.6 fL (80.0-100.0); Mean Platelet Volume 10.1 fL (9.4-12.4); Platelet Count 254 K/uL (130-400); RDW Coefficient of Variation 14.9 % (11.5-14.5); Red Blood Count 4.05 M/uL (4.70-6.10); White Blood Count 4.39 K/ul (4.8-10.8)
[2025-05-18 06:28] LABS: Calcium 8.8 mg/dl (8.6-10.3); Creatinine Clr Calc Pharmacy 66.3 ml/min; Magnesium 2.1 mg/dl (1.7-2.4); Phosphorus 2.9 mg/dl (2.5-4.9); Potassium 4.6 mmol/L (3.5-5.1)
--- NOTE | 2025-05-18 08:14 | Orthopedic Progress Note ---
Date of Service May 18, 2025 Assessment & Plan (1) Diabetic ulcer of right foot: (2) Diabetic ulcer of right great toe: (3) Hyperlipidemia: (4) DMII (diabetes mellitus, type 2): (5) CAD (coronary artery disease): (6) Diabetic vasculopathy: Plan Juan Antonio is a 64-year-old gentleman who is quite medically complex. As noted in previous notes, he has been dealing with wounds on his right foot underneath his great toe and his fifth toe for the last month or so. Patient notes that he has had a "toe drop" since a recent back surgery and this is never really caused him an issue but because of this he is unable to extend his great toe and he believes that this is why his toe rubbed on the bottom of his shoe and caused an ulcer. Patient has had MRIs done which are concerning for osteomyelitis of his great toe distal phalanx. There is some T2 hyperintensity located within the plantar aspect of the fifth metatarsal head as well. Luckily, on his physical exam, I do not appreciate any deep probing to bone. The patient is insistent that with his home wound care that he has been doing over the last few weeks his wounds have improved significantly. Patient did have arterial ultrasounds done measuring ABIs and his right foot JARED is 0.55. At the time of his initial presentation, my concern was that limited ampuation would be unlikely to heal due to his significant vascular disease in his right lower extremity. He did undergo endovascular intervention with Dr Avelar and these notes were reviewed. following the procedure the patient was noted to have brisk 3vessel run-off. At this point, following intervention, the patient is hopeful that continued local wound care may be helpful at healing his foot wounds. Given the concern for osteomyelitis in his right great toe, I am still concerned that that particular wound may not heal and that the patient may require Hallux IP disarticulation, however this would onviously be preferrable to a BKA. I explained to the patient that a reasonable goal now that he has had his vessels dilated/stented would be for him to be able to heal a more distal amputation such as a hallux IP distarticulation or a TMA. Patient remains healthy appearing. At this point would continue wound care and cautious observation. Follow up with Dr Slade as an outpatient for wound care - I am absolutely available should the patient require amputation. Admission and Anticipated Discharge Date Admission Date: May 14, 2025 Subjective patient seen at bedside this morning. He did proceed to the endovascular suite yesterday with Dr Avelar. Patient notes he feels well today Review of Systems Review of Systems: Negative unless otherwise stated in HPI Physical Exam Physical Exam: On physical examination, the patient has superficial appearing wounds located on the plantar tuft of his great toe as well as at the plantar aspect of his fifth metatarsal head. These do not probe particularly deep. He lacks the a bility to perform great toe extension and notes that he has lacked this ability since his back surgery. His feet are numb bilaterally in a stocking-like distribution which is at baseline per the patient. Results & Data Vital Signs (Past 12 Hours) Vital Signs Temp Pulse Pulse Resp BP Pulse Ox Pulse Ox 05/18/25 06:59 66 05/18/25 06:56 74 05/18/25 03:22 79 05/18/25 03:01 36.8 C 77 18 107/64 97 05/17/25 22:49 36.9 C 80 18 154/76 H 98 05/17/25 21:46 05/17/25 21:31 96 O2 Del Method O2 Del Method 05/18/25 06:59 05/18/25 06:56 05/18/25 03:22 05/18/25 03:01 Room Air 05/17/25 22:49 Room Air 05/17/25 21:46 Room Air 05/17/25 21:31 Room Air Diagnostic Findings Per Dr Avelar: Right lower extremity-- -Common iliacwidely patent -External iliacwidely patent -Internal iliacwidely patent -CFAheavily calcified, nodular, focal 95+% stenosis in mid to distal FINISHING ROOM OPERATOR with sluggish downstream flow -SFAwidely patent -[id number]%, calcified mid stenosis -[id number]% proximal to mid disease, 100% distal occlusion. Reconstitutes above the ankle via bridging collaterals with sluggish flow into DPA. -PTAwidely patent into the foot -Peronealwidely patent the ankle Procedures performed: Mid popliteal stenosis dilated with 3.0 balloon, mid FINISHING ROOM OPERATOR dilated with 3.0 balloon Shockwave intravascular lithotripsy of popliteal artery with 5.0 balloon (320 pulses), additional shockwave with 5.0 balloon to right FINISHING ROOM OPERATOR (80 pulses). Popliteal artery treated with 5.0 x 100 mm Lutonix drug-eluting balloon Popliteal artery expanded well with no evidence of dissection and decision made to forego stenting. Below the knee noted to have sluggish flow Proximal to distal SURYA dilated with 2.5 mm balloon. SURYA expanded well with no apparent dissection. Right FINISHING ROOM OPERATOR further treated with shockwave intravascular lithotripsy 8 mm balloon (300 pulses) FINISHING ROOM OPERATOR expanded well with minimal residual stenosis and no apparent gradient across FINISHING ROOM OPERATOR. No evidence of dissection. Post procedure good angiographic result, with brisk 3 vessel run-off.
[2025-05-18] MEDS: CLOPIDOGREL BISULFATE 75 MG TAB PO SCH (08:46)
[2025-05-18] MEDS: LANTUS PER UNIT CHARGE SC SCH (08:46)
--- NOTE | 2025-05-18 13:04 | Vascular Medicine ProgressNote ---
Date of Service May 18, 2025 Assessment & Plan (1) Diabetic ulcer of right foot: Plan: 2. Peripheral arterial disease 3. CAD post multivessel stenting 4. Anemia Post successful endovascular intervention yesterday. RT foot appears well perfused with palpable DP/PT pulses (PT>DP), cap refill improved. No apparent access site complications. Post procedure labs stable. From a cardiovascular standpoint OK for discharge today. -- Discussed importance of continued wound care on discharge. Agreeable to follow-up with Dr. Slade and/or wound clinic. -- Continue DAPT with ASA/Clopidogrel for at least 1 month. -- Restart high intensity statin -- Consider YANET as an outpatient -- Follow-up with me with repeat JARED/TBI/PVR in 2 weeks. Admission and Anticipated Discharge Date Admission Date: May 14, 2025 Subjective Denies foot pain today. Mild tenderness at LT INSULATION INSTALLER access site. No other new complaints. Tele reviewed -- no events. Review of Systems Review of Systems: All systems reviewed & are unremarkable except as noted in HPI & below Physical Exam Physical Exam: General: Comfortable, no acute distress Eyes: Sclerae anicteric Lungs: Clear to auscultation bilaterally Cardiac: Regular rate and rhythm, no murmurs Abdomen: Soft, nontender Neuro: Decreased sensation to light touch in feet bilaterally Psych: Alert oriented Extremities/Vascular: -- RT foot warm. RT toe dressed. No surrounding erythema around toe dressing or lateral wound. -- 1+ PT pulse, palpable DP pulse on RT. normal cap refill -- No edema -- No odor -- LT INSULATION INSTALLER access site - serosanguineous on dressing 4x4. Tender. No hematoma. 2+ pulse Results & Data Vital Signs (Past 12 Hours) Vital Signs Temp Pulse Pulse Resp BP Pulse Ox O2 Del Method 05/18/25 12:01 98.2 F 78 20 131/71 96 Room Air 05/18/25 08:22 98.8 F 79 20 126/72 97 Room Air 05/18/25 06:59 66 05/18/25 06:56 74 05/18/25 03:22 79 05/18/25 03:01 98.2 F 77 18 107/64 97 Room Air PG Care Time/CCT Total # of Minutes Spent Total Time Spent with Patient: Total time spent is greater than 50% in coordination of care (as documented) at patient's floor/unit and/or counseling patient: Coding Level of Care Code 32405 SUB INP/OBS CARE 50MIN Diagnoses Diabetic ulcer of right foot E11.621; L97.519
--- NOTE | 2025-05-18 13:16 | Hospitalist Progress Note ---
Date of Service May 18, 2025 Assessment & Plan (1) Diabetic ulcer of right foot: (2) DMII (diabetes mellitus, type 2): (3) CAD (coronary artery disease): (4) Hyperlipidemia: Plan This is a 64-year-old male who has a significant past medical history of CAD, T2DM, diabetic neuropathy, diabetic retinopathy, HTN and HLD who presents to ED secondary to worsening right lower foot wounds x 1 month. #Diabetic Ulcer of plantar aspect of R great toe and base of R 5th toe, POA #Suspected osteomyelitis of R great toe #Diabetic neuropathy XR Foot - 1. No evidence of acute fracture, or dislocation. No lytic or sclerotic osseous lesions. 2. Soft tissue edema at the forefoot mainly surrounding 1st toe and the lateral aspect of the foot adjacent to the metatarsophalangeal joint. Arterial atherosclerotic wall calcifications. MRI Foot - 1. Diffuse subcutaneous edema in dorsum of foot. 2. Diffuse muscles edema in plantar compartment. 3. Suspicious bone marrow edema in entire distal phalanx of great toe- possible osteomyelitis. 4. Skin and subcutaneous thickening with suspicious ulceration seen overlying 1st toe. 5. Mild interphalangeal and meta-tarsophalangeal joint effusion in 1st toe. Arterial duplex of RLE- 1. Elevated velocity at the proximal right common femoral artery (PSV 380.6 cm/sec) is consistent with ?70% stenosis. 2. Post-stenotic elevated PSV at the proximal popliteal artery is also seen, suggets significant stenosis. 3. Abnormal monophasic waveforms as detailed. Findings suggest severe peripheral vascular disease. 4. JARED on the right is reduced, consistent with moderate PAD. 5. CTA correlation is advised as clinically warranted. Blood cultx - NGTD and wound cultures - mixed probable skin amandeep Consulted podiatry/ orthopedics - discussed w/ Dr. Lima - pt does not wish any amputation at this time. Recommend vascular surgery eval for planning of future treatment -> consulted Dr. Avelar -> now s/p RLE angiogram and revascularization Per Dr. Avelar Summary: 1. Right lower extremity --95+% calcified mid AUTOMOBILE UPHOLSTERER APPRENTICE, 90% mid popliteal. 100% short distal SURYA occlusion with bridging collaterals. COMBAT RIFLE CREWMEMBER, peroneal widely patent 2. Left lower extremity --iliacs, AUTOMOBILE UPHOLSTERER APPRENTICE widely patent 3. Successful angioplasty of right AUTOMOBILE UPHOLSTERER APPRENTICE with intravascular lithotripsy (shockwave 8 mm). 4. Successful angioplasty of right popliteal stenosis with intravascular lithotripsy (shockwave 5 mm) and drug-eluting balloon (5.0 x 100 Lutonix). 5. Successful angioplasty of right anterior tibial artery occlusion with 2.5 balloon Recommendations: Continue DAPT with ASA/Clopidogrel for at least 1 month Follow-up non-invasive vascular testing in 2 weeks. Follow-up with Dr. Slade and/or wound clinic Restart statin and consider YANET as outpt Empiric IV Cefepime and vancomycin for now Consulted wound care 05/17 Discussed w/ ID - if no debridement planned and no positive cultures - can DC on 2 weeks of PO augmentin and cipro #T2DM pt previously on insulin and jardiance; however stopped taking in August due to loss of insurance A1c 9.3, place on novolog SS for now, bsg in 70s in ED. CM consulted to evaluate for medicare/medicaid given age vs [employer] telehealth nurse educator consulted - plan to DC pt on insulin. Per [place] pt did not tolerate metformin, and also not to DC on jardiance #CAD #HTN #HLD hx of EDGARD in 2021 with inferior DC, dx with severe CAD previously was on ASA, plavix 75mg daily, metoprolol succinate 25mg bid, lisinopril 5mg daily and crestor 40mg HS he stopped everything but ASA due to inability to afford/lack of insurance Now on asa and plavix and prices checked - plavix is $4.90 restart statin Outpt ACEi FULL CODE PCP: none currently -> pt will follow up w/ Melly PCP, appointment was set up Dispo: med/surg Admission and Anticipated Discharge Date Admission Date: May 14, 2025 Subjective Pt seen in follow up of foot wounds, possible osteo Pt seen by orthopedics (Dr. Lima) - pt does not want any amputation, discussed that vascular surg. involvement would be beneficial for future planning of treatment of the pt -> consulted vasc. Dr. Avelar - sai pt s/p RLE angiogram and revascularization Currently pt is lying in bed in NAD, confirms again that he does not wish amputation and would try any other route first Denies fevers, chills, chest pain, shortness of breath, abd. pain, n/v discussed w/ maryse yesterday, sent Rx for meds including plavix - plavix $4.90 Discussed w/ vasc. surg. today - pt doing well, will add statin, pt will need follow up in 2 weeks Review of Systems Review of Systems: All systems reviewed & are unremarkable except as noted in Subjective Physical Exam Physical Exam: Constitutional: WD/WN M in NAD, lying in bed Head: Normocephalic, Atraumatic Eyes: conjunctivae normal, anicteric sclerae ENMT: external ear and nose normal, poor dentition Neck: normal visual inspection Respiratory: normal respiratory effort, lungs clear to auscultation, no wheeze, rales, rhonchi. Cardiovascular: RRR, no murmur, no edema Chest: normal inspection of chest Abdomen: normal bowel sounds, soft, nontender Musculoskeletal: no LE edema, moves extremities Skin: no rashes, warm and dry + Distal aspect of R great toe wound and R 5th toe plantar base wound, photos in EMR Neurologic: PERRL, EOMI, no face palsy, no dysarthria, answers appropriately, moves all extremities Psychiatric: A+Ox3, euthymic affect Results & Data Results & Data Vital Signs (Past 12 Hours) Vital Signs Temp Pulse Pulse Resp BP Pulse Ox O2 Del Method 05/18/25 12:01 36.8 C 78 20 131/71 96 Room Air 05/18/25 08:22 37.1 C 79 20 126/72 97 Room Air 05/18/25 06:59 66 05/18/25 06:56 74 05/18/25 03:22 79 05/18/25 03:01 36.8 C 77 18 107/64 97 Room Air Laboratory Results 05/18/25 05/18/25 05/18/25 Range/Units 11:37 07:54 05:51 WBC 4.39 L (4.8-10.8) K/ul RBC 4.05 L (4.70-6.10) M/uL Hgb 11.8 L (14.0-18.0) g/dl Hct 36.7 L (42.0-52.0) % MCV 90.6 (80.0-100.0) fL MCH 29.1 (25.0-34.0) pg MCHC 32.2 (32.0-36.0) g/dL RDW Std Deviation 50.0 H (36.4-46.3) fL RDW Coeff of Saroj 14.9 H (11.5-14.5) % Plt Count 254 (130-400) K/uL MPV 10.1 (9.4-12.4) fL Sodium 134 L (136-145) mmol/L Potassium 4.6 (3.5-5.1) mmol/L Chloride 103 (98-107) mmol/L Carbon Dioxide 24 (21-32) mmol/L Anion Gap 7 (3-11) BUN 28 H (6-23) mg/dl Creatinine 1.22 (0.6-1.4) mg/dl Est Cr Clr Drug Dosing 66.3 ml/min eGFR 65.79 BUN/Creatinine Ratio 23.0 H (10-20) Glucose 147 H (70-99(Fasting)) mg/dl POC Glucose 221 H 202 H (70-99) mg/dl Calcium 8.8 (8.6-10.3) mg/dl Phosphorus 2.9 (2.5-4.9) mg/dl Magnesium 2.1 (1.7-2.4) mg/dl 05/17/25 05/17/25 Range/Units 20:01 16:22 WBC (4.8-10.8) K/ul RBC (4.70-6.10) M/uL Hgb (14.0-18.0) g/dl Hct (42.0-52.0) % MCV (80.0-100.0) fL MCH (25.0-34.0) pg MCHC (32.0-36.0) g/dL RDW Std Deviation (36.4-46.3) fL RDW Coeff of Saroj (11.5-14.5) % Plt Count (130-400) K/uL MPV (9.4-12.4) fL Sodium (136-145) mmol/L Potassium (3.5-5.1) mmol/L Chloride (98-107) mmol/L Carbon Dioxide (21-32) mmol/L Anion Gap (3-11) BUN (6-23) mg/dl Creatinine (0.6-1.4) mg/dl Est Cr Clr Drug Dosing ml/min eGFR BUN/Creatinine Ratio (10-20) Glucose (70-99(Fasting)) mg/dl POC Glucose 268 H 189 H (70-99) mg/dl Calcium (8.6-10.3) mg/dl Phosphorus (2.5-4.9) mg/dl Magnesium (1.7-2.4) mg/dl Medications Administered Current Inpatient Medications Acetaminophen (Acetaminophen 325 Mg Tab) 650 mg PO Q4H PRN PRN Reason: Pain or Fever Stop: 06/13/25 21:30 Last Admin: 05/18/25 02:19 Dose: 650 mg Aspirin (Aspirin 81 Mg Ectab) 81 mg PO DAILY [facility] Stop: 06/14/25 08:59 Last Admin: 05/18/25 08:53 Dose: 81 mg Atorvastatin Calcium (Atorvastatin 40 Mg Tab) 40 mg PO QAM [facility] Stop: 06/17/25 20:59 Clopidogrel Bisulfate (Clopidogrel Bisulfate 75 Mg Tab) [facility] Stop: 06/17/25 08:59 Last Admin: 05/18/25 08:46 Dose: 75 mg Dextrose (Dextrose 50% 50 Ml Syringe) 25 - 50 ml IV UD PRN; Protocol PRN Reason: Hypoglycemia Protocol Stop: 06/13/25 21:30 Famotidine (Famotidine 20 Mg Tab) 20 mg PO DAILY PRN PRN Reason: Heartburn Stop: 06/13/25 21:30 Glucagon (Glucagon For Inj 1 Mg Vial) 1 mg SQ UD PRN; Protocol PRN Reason: Hypoglycemia Protocol Stop: 06/13/25 21:30 Glucose (Glucose 40% Gel 15 Gm Tube) 15 - 30 gm PO UD PRN; Protocol PRN Reason: Hypoglycemia Protocol Stop: 06/13/25 21:30 Glucose (Glucose 10 Tab/Tube) 4 - 8 tab PO UD PRN; Protocol PRN Reason: Hypoglycemia Protocol Stop: 06/13/25 21:30 Cefepime HCl (Maxipime 2000mg) 2,000 mg in 20 mls @ 5 mls/min IV Q8H [facility]; Protocol Stop: 05/22/25 02:29 Last Admin: 05/18/25 12:47 Dose: 5 mls/min Vancomycin HCl (Vancomycin Hcl) 1,000 mg in 270 mls @ 200 mls/hr IV Q12H [facility] Stop: 05/22/25 06:59 Last Infusion: 05/18/25 07:51 Dose: Infused Insulin Aspart (Insulin Aspart Per Unit Charge) 0 units SC ACHS [facility] Stop: 06/13/25 21:30 Last Admin: 05/18/25 12:47 Dose: 8 units Insulin Glargine (Lantus Per Unit Charge) 15 units SC BID [facility] Stop: 06/17/25 08:59 Last Admin: 05/18/25 08:46 Dose: 15 units Lactobacillus Acidophilus (Advanced Probiotic 625 Mg Capsule) 1,250 mg PO DAILY [facility] Stop: 06/14/25 08:59 Last Admin: 05/18/25 08:53 Dose: 1,250 mg Lidocaine HCl (Lidocaine 2% Jelly 5 Ml Tube) 1 ml EXT PRN PRN PRN Reason: Pain Stop: 06/16/25 15:13 Melatonin (Melatonin 3 Mg Tab) 3 mg PO HS PRN PRN Reason: Sleep Stop: 06/13/25 21:30 Miscellaneous (Carbohydrates For Hypoglycemia ) 15 - 30 gm PO UD PRN PRN Reason: Hypoglycemia Protocol Stop: 06/13/25 21:30 Miscellaneous Information (Vancomycin Consult Active) 1 each N/A UD PRN PRN Reason: Consult Stop: 06/13/25 19:24 Miscellaneous Information (Pharmacy Glycemic Mgmt Consult) 1 each N/A UD PRN; Protocol PRN Reason: Consult Stop: 06/16/25 16:30 Ondansetron HCl (Ondansetron Inj 2 Mg/Ml 2 Ml Vial) 4 mg IV Q6H PRN PRN Reason: Nausea Stop: 06/13/25 21:30 Oxycodone HCl (Oxycodone Hcl Ir 5 Mg Tab (Immediate Release)) 5 mg PO Q4H PRN PRN Reason: Severe Pain (Scale 7, 8, 9,10) Stop: 05/28/25 21:30 Last Admin: 05/17/25 18:20 Dose: 5 mg Polyethylene Glycol (Polyethylene (Miralax) 17 Gm Pack) 17 gm PO DAILY PRN PRN Reason: Constipation Stop: 06/13/25 21:30
--- NOTE | 2025-05-18 14:46 | Pharmacy Report ---
Pharmacy Glycemic Short Note 2 - Date of Service May 18, 2025 - Glycemic Short BSG Results (Last 24 hours): 05/17/25 05/17/25 05/18/25 16:22 20:01 05:51 Glucose 147 H POC Glucose 189 H 268 H 05/18/25 05/18/25 07:54 11:37 Glucose POC Glucose 202 H 221 H OUTPATIENT ANTIDIABETIC REGIMEN: * ASSESSMENT: * patient admitted with diabetic foot infections. BSGs have been trending upward. Patient rationing insulin outpatient d/t affordability. Provided print line tailer program information from review of assistant health educator note. * Fasting on labs 147 mg/dL this morning--- will continue with 15 units BID for now, consider combining to daily dosing * Novolog parmaters tightened yesterday PM- will monitor for today for further adjustments PLAN FOR INPATIENT GLYCEMIC CONTROL: * Hold outpatient oral diabetes medications * Basal insulin * Lantus 15 units SQ BID * Bolus insulin * NovoLog per scale ACHS or Q6hrs while NPO * Goal Range: Low 110 mg/dL - High 140 mg/dL * Correction Factor: 25 mg/dL/unit * Nutritional / Prandial insulin per carb ratio of 1 unit per 8 grams CHO consumed
[2025-05-18] MEDS: ATORVASTATIN 40 MG TAB PO SCH (20:55)
[2025-05-19 06:14] LABS: BUN Creatinine Ratio 27.6 (10-20); Calcium 8.7 mg/dl (8.6-10.3); Magnesium 2.1 mg/dl (1.7-2.4); Phosphorus 2.7 mg/dl (2.5-4.9); Potassium 4.6 mmol/L (3.5-5.1)
--- NOTE | 2025-05-19 08:52 | Pharmacy Report ---
Pharmacy PK ABX Note - Date of Service May 19, 2025 - Assessment and Plan Assessment 05/19: * Random vancomycin level this morning 13.6 mcg/mL. Predicted AUC 497 mg/L.hr. Will continue with current dosing * Cultures remain negative/mixed skin microbiota 05/16: * Random vanco level obtained 05/16 @ 0624 resulted at 11.7 mcg/mL. Predicted AUC at steady state: 531 mg/L.hr. Ok to continue current dose. * Preliminary BC with no reported growth at 24 hour karen. Preliminary toe culture with likely mixed skin microbiota. 05/15: * 64 year old M receiving vancomycin and cefepime for suspected osteo of toe. Cultures pending. Plan Vancomycin * Continue current regimen: 1000 mg IV every 12 hours * This is predicted to achieve target AUC/LOCO of 400-600 mg/L.hr Pharmacy will continue to follow and will adjust dose/frequency as necessary. Thank you.
--- NOTE | 2025-05-19 10:25 | Hospitalist Progress Note ---
Date of Service May 19, 2025 Assessment & Plan (1) Diabetic ulcer of right foot: (2) DMII (diabetes mellitus, type 2): (3) CAD (coronary artery disease): (4) Hyperlipidemia: Plan This is a 64-year-old male who has a significant past medical history of CAD, T2DM, diabetic neuropathy, diabetic retinopathy, HTN and HLD who presents to ED secondary to worsening right lower foot wounds x 1 month. #Diabetic Ulcer of plantar aspect of R great toe and base of R 5th toe, POA #Suspected osteomyelitis of R great toe #Diabetic neuropathy XR Foot - 1. No evidence of acute fracture, or dislocation. No lytic or sclerotic osseous lesions. 2. Soft tissue edema at the forefoot mainly surrounding 1st toe and the lateral aspect of the foot adjacent to the metatarsophalangeal joint. Arterial atherosclerotic wall calcifications. MRI Foot - 1. Diffuse subcutaneous edema in dorsum of foot. 2. Diffuse muscles edema in plantar compartment. 3. Suspicious bone marrow edema in entire distal phalanx of great toe- possible osteomyelitis. 4. Skin and subcutaneous thickening with suspicious ulceration seen overlying 1st toe. 5. Mild interphalangeal and meta-tarsophalangeal joint effusion in 1st toe. Arterial duplex of RLE- 1. Elevated velocity at the proximal right common femoral artery (PSV 380.6 cm/sec) is consistent with ?70% stenosis. 2. Post-stenotic elevated PSV at the proximal popliteal artery is also seen, suggets significant stenosis. 3. Abnormal monophasic waveforms as detailed. Findings suggest severe peripheral vascular disease. 4. JARED on the right is reduced, consistent with moderate PAD. 5. CTA correlation is advised as clinically warranted. Blood cultx - NGTD and wound cultures - mixed probable skin amandeep Consulted podiatry/ orthopedics - discussed w/ Dr. Lima - pt does not wish any amputation at this time. Recommend vascular surgery eval for planning of future treatment -> consulted Dr. Avelar -> now s/p RLE angiogram and revascularization Per Dr. Avelar Summary: 1. Right lower extremity --95+% calcified mid APRON WORKER, 90% mid popliteal. 100% short distal SURYA occlusion with bridging collaterals. WIND TUNNEL TECHNICIAN, peroneal widely patent 2. Left lower extremity --iliacs, APRON WORKER widely patent 3. Successful angioplasty of right APRON WORKER with intravascular lithotripsy (shockwave 8 mm). 4. Successful angioplasty of right popliteal stenosis with intravascular lithotripsy (shockwave 5 mm) and drug-eluting balloon (5.0 x 100 Lutonix). 5. Successful angioplasty of right anterior tibial artery occlusion with 2.5 balloon Recommendations: Continue DAPT with ASA/Clopidogrel for at least 1 month Follow-up non-invasive vascular testing in 2 weeks. Follow-up with Dr. Slade (or other shipping assistant) and/or wound clinic Restart statin and consider YANET as outpt Empiric IV Cefepime and vancomycin for now Consulted wound care 05/17 Discussed w/ ID - if no debridement planned and no positive cultures - can DC on 2 weeks of PO augmentin and cipro #T2DM pt previously on insulin and jardiance; however stopped taking in August due to loss of insurance A1c 9.3, place on novolog SS for now, bsg in 70s in ED. CM consulted to evaluate for medicare/medicaid given age vs [employer] certified breastfeeding educator consulted - plan to DC pt on insulin. Per [place] pt did not tolerate metformin, and also not to DC on jardiance 05/19 Discussed with the pt - pt tells me he has insulin about one month worth, he has both long acting and short acting. He also reports he has been closely working with his PCP and pharmacist at his PCP's office. Plan to closely follow up w/ PCP. He wishes to be discharged but does not have a ride. Will contact CM to help with transportation, likely to DC tmrw. #CAD #HTN #HLD hx of EDGARD in 2021 with inferior [place], dx with severe CAD previously was on ASA, plavix 75mg daily, metoprolol succinate 25mg bid, lisinopril 5mg daily and crestor 40mg HS he stopped everything but ASA due to inability to afford/lack of insurance Now on asa and plavix and prices checked - plavix is $4.90 restart statin Outpt [facility]i FULL CODE PCP: none currently -> pt will follow up w/ Melly PCP, appointment was set up Dispo: med/surg Admission and Anticipated Discharge Date Admission Date: May 14, 2025 Subjective Pt seen in follow up of foot wounds, possible osteo Pt seen by orthopedics (Dr. Lima) - pt does not want any amputation, discussed that vascular surg. involvement would be beneficial for future planning of treatment of the pt -> consulted vasc. Dr. Avelar - now pt s/p RLE angiogram and revascularization Currently pt is sitting up in chair in NAD, reports he does have about a month worth of insulin at home. Discussed outpt follow ups, and plan for DC tmrw Denies fevers, chills, chest pain, shortness of breath, abd. pain, n/v discussed w/ liason previously sent Rx for meds including plavix - plavix $4.90 Review of Systems Review of Systems: All systems reviewed & are unremarkable except as noted in Subjective Physical Exam Physical Exam: Constitutional: WD/WN M in NAD, lying in bed Head: Normocephalic, Atraumatic Eyes: conjunctivae normal, anicteric sclerae ENMT: external ear and nose normal, poor dentition Neck: normal visual inspection Respiratory: normal respiratory effort, lungs clear to auscultation, no wheeze, rales, rhonchi. Cardiovascular: RRR, no murmur, no edema Chest: normal inspection of chest Abdomen: normal bowel sounds, soft, nontender Musculoskeletal: no LE edema, moves extremities Skin: no rashes, warm and dry + Distal aspect of R great toe wound and R 5th toe plantar base wound, photos in EMR Neurologic: PERRL, EOMI, no face palsy, no dysarthria, answers appropriately, moves all extremities Psychiatric: A+Ox3, euthymic affect Results & Data Results & Data Vital Signs (Past 12 Hours) Vital Signs Temp Pulse Pulse Resp BP Pulse Ox O2 Del Method 05/19/25 10:00 68 05/19/25 08:25 36.6 C 76 18 135/83 96 Room Air 05/19/25 03:00 36.7 C 81 21 121/74 94 Room Air 05/19/25 02:32 82 05/18/25 23:19 36.8 C 18 123/70 97 Room Air Laboratory Results 05/19/25 05/19/25 05/18/25 Range/Units 08:18 05:14 20:17 Sodium 135 L (136-145) mmol/L Potassium 4.6 (3.5-5.1) mmol/L Chloride 106 (98-107) mmol/L Carbon Dioxide 22 (21-32) mmol/L Anion Gap 7 (3-11) BUN 29 H (6-23) mg/dl Creatinine 1.05 (0.6-1.4) mg/dl Est Cr Clr Drug Dosing 77.0 ml/min eGFR 78.77 BUN/Creatinine Ratio 27.6 H (10-20) Glucose 182 H (70-99(Fasting)) mg/dl POC Glucose 182 H 157 H (70-99) mg/dl Calcium 8.7 (8.6-10.3) mg/dl Phosphorus 2.7 (2.5-4.9) mg/dl Magnesium 2.1 (1.7-2.4) mg/dl Random Vancomycin 13.6 (10-20) mcg/ml 05/18/25 05/18/25 Range/Units 16:47 11:37 Sodium (136-145) mmol/L Potassium (3.5-5.1) mmol/L Chloride (98-107) mmol/L Carbon Dioxide (21-32) mmol/L Anion Gap (3-11) BUN (6-23) mg/dl Creatinine (0.6-1.4) mg/dl Est Cr Clr Drug Dosing ml/min eGFR BUN/Creatinine Ratio (10-20) Glucose (70-99(Fasting)) mg/dl POC Glucose 146 H 221 H (70-99) mg/dl Calcium (8.6-10.3) mg/dl Phosphorus (2.5-4.9) mg/dl Magnesium (1.7-2.4) mg/dl Random Vancomycin (10-20) mcg/ml Medications Administered Current Inpatient Medications Acetaminophen (Acetaminophen 325 Mg Tab) 650 mg PO Q4H PRN PRN Reason: Pain or Fever Stop: 06/13/25 21:30 Last Admin: 05/19/25 02:40 Dose: 650 mg Aspirin (Aspirin 81 Mg Ectab) 81 mg PO DAILY [facility] Stop: 06/14/25 08:59 Last Admin: 05/19/25 08:38 Dose: 81 mg Atorvastatin Calcium (Atorvastatin 40 Mg Tab) 40 mg PO QAM [facility] Stop: 06/17/25 20:59 Last Admin: 05/19/25 08:38 Dose: 40 mg Clopidogrel Bisulfate (Clopidogrel Bisulfate 75 Mg Tab) 75 mg PO QAM [facility] Stop: 06/17/25 08:59 Last Admin: 05/19/25 08:38 Dose: 75 mg Dextrose (Dextrose 50% 50 Ml Syringe) 25 - 50 ml IV UD PRN; Protocol PRN Reason: Hypoglycemia Protocol Stop: 06/13/25 21:30 Famotidine (Famotidine 20 Mg Tab) 20 mg PO DAILY PRN PRN Reason: Heartburn Stop: 06/13/25 21:30 Glucagon (Glucagon For Inj 1 Mg Vial) 1 mg SQ UD PRN; Protocol PRN Reason: Hypoglycemia Protocol Stop: 06/13/25 21:30 Glucose (Glucose 40% Gel 15 Gm Tube) 15 - 30 gm PO UD PRN; Protocol PRN Reason: Hypoglycemia Protocol Stop: 06/13/25 21:30 Glucose (Glucose 10 Tab/Tube) 4 - 8 tab PO UD PRN; Protocol PRN Reason: Hypoglycemia Protocol Stop: 06/13/25 21:30 Cefepime HCl (Maxipime 2000mg) 2,000 mg in 20 mls @ 5 mls/min IV Q8H [facility]; Protocol Stop: 05/22/25 02:29 Last Admin: 05/19/25 02:41 Dose: 5 mls/min Vancomycin HCl (Vancomycin Hcl) 1,000 mg in 270 mls @ 200 mls/hr IV Q12H [facility] Stop: 05/22/25 06:59 Last Infusion: 05/19/25 07:42 Dose: Infused Insulin Aspart (Insulin Aspart Per Unit Charge) 0 units SC ACHS [facility] Stop: 06/13/25 21:30 Last Admin: 05/19/25 08:36 Dose: 9 units Insulin Glargine (Lantus Per Unit Charge) 15 units SC BID [facility] Stop: 06/17/25 08:59 Last Admin: 05/19/25 08:37 Dose: 15 units Lactobacillus Acidophilus (Advanced Probiotic 625 Mg Capsule) 1,250 mg PO DAILY [facility] Stop: 06/14/25 08:59 Last Admin: 05/19/25 08:38 Dose: 1,250 mg Lidocaine HCl (Lidocaine 2% Jelly 5 Ml Tube) 1 ml EXT PRN PRN PRN Reason: Pain Stop: 06/16/25 15:13 Melatonin (Melatonin 3 Mg Tab) 3 mg PO HS PRN PRN Reason: Sleep Stop: 06/13/25 21:30 Miscellaneous (Carbohydrates For Hypoglycemia ) 15 - 30 gm PO UD PRN PRN Reason: Hypoglycemia Protocol Stop: 06/13/25 21:30 Miscellaneous Information (Vancomycin Consult Active) 1 each N/A UD PRN PRN Reason: Consult Stop: 06/13/25 19:24 Miscellaneous Information (Pharmacy Glycemic Mgmt Consult) 1 each N/A UD PRN; Protocol PRN Reason: Consult Stop: 06/16/25 16:30 Ondansetron HCl (Ondansetron Inj 2 Mg/Ml 2 Ml Vial) 4 mg IV Q6H PRN PRN Reason: Nausea Stop: 06/13/25 21:30 Oxycodone HCl (Oxycodone Hcl Ir 5 Mg Tab (Immediate Release)) 5 mg PO Q4H PRN PRN Reason: Severe Pain (Scale 7, 8, 9,10) Stop: 05/28/25 21:30 Last Admin: 05/17/25 18:20 Dose: 5 mg Polyethylene Glycol (Polyethylene (Miralax) 17 Gm Pack) 17 gm PO DAILY PRN PRN Reason: Constipation Stop: 06/13/25 21:30
[2025-05-19 16:26] VITALS: RESP 18
[2025-05-20 05:21] LABS: Hemoglobin 11.2 g/dl (14.0-18.0); Mean Corpuscular Hemoglobin 29.8 pg (25.0-34.0); Mean Corpuscular Hgb Conc 32.9 g/dL (32.0-36.0); Mean Corpuscular Volume 90.4 fL (80.0-100.0); Mean Platelet Volume 10.4 fL (9.4-12.4); Platelet Count 253 K/uL (130-400); RDW Coefficient of Variation 14.8 % (11.5-14.5); RDW Standard Deviation 48.9 fL (36.4-46.3); Red Blood Count 3.76 M/uL (4.70-6.10); White Blood Count 5.34 K/ul (4.8-10.8)
[2025-05-20 05:47] LABS: BUN Creatinine Ratio 27.2 (10-20); Creatinine Clr Calc Pharmacy 78.5 ml/min; Magnesium 1.9 mg/dl (1.7-2.4); Potassium 4.4 mmol/L (3.5-5.1)
[2025-05-20] MEDS ORDERED: VANCOMYCIN LEVEL ONE (06:00)
[2025-05-20 08:13] VITALS: BP 117/71; TEMP 97.5; O2SAT 96
[2025-05-20 11:20] VITALS: PULSE 71
--- NOTE | 2025-05-20 11:54 | Pharmacy Report ---
Pharmacy Glycemic Short Note 2 - Date of Service May 20, 2025 - Glycemic Short BSG Results (Last 24 hours): 05/19/25 05/19/25 05/19/25 12:01 16:35 20:13 Glucose POC Glucose 194 H 144 H 159 H 05/20/25 05/20/25 05/20/25 04:47 07:48 11:35 Glucose 109 H POC Glucose 156 H 163 H OUTPATIENT ANTIDIABETIC REGIMEN: * n/a ASSESSMENT: 05/20 * Juan Antonio received a total of 56 units of insulin yesterday (30 units were basal and 26 units were bolus). * Fasting BSG was 156mg/dL this morning. Will continue Lantus as ordered. * Will tighten carb ratio of bolus insulin starting with lunch today for better prandial control as BSGs still all above goal 05/18 * patient admitted with diabetic foot infections. BSGs have been trending upward. Patient rationing insulin outpatient d/t affordability. Provided astronomy instructor program information from review of ict educator note. * Fasting on labs 147 mg/dL this morning--- will continue with 15 units BID for now, consider combining to daily dosing * Novolog parmaters tightened yesterday PM- will monitor for today for further adjustments PLAN FOR INPATIENT GLYCEMIC CONTROL: * Hold outpatient oral diabetes medications * Basal insulin * Lantus 15 units SQ BID * Bolus insulin * NovoLog per scale ACHS or Q6hrs while NPO * Goal Range: Low 110 mg/dL - High 140 mg/dL * Correction Factor: 25 mg/dL/unit * Nutritional / Prandial insulin per carb ratio of 1 unit per 7 grams CHO consumed
--- NOTE | 2025-05-20 12:09 | Discharge Summary ---
Date of Service May 20, 2025 Admission HPI Per Admitting Provider This is a 64-year-old male who has a significant past medical history of CAD, T2DM, diabetic neuropathy, diabetic retinopathy, HTN and HLD who presents to ED secondary to worsening right lower foot wounds x 1 month. Patient reports being uninsured since August and has stopped all of his routine medications except aspirin and obma-bvr-zqioome supplements. He reports noting over the last month of 2 wounds to his right foot, the right great toe and the right fifth toe. He purchased [id number] silver gel as well as Neosporin with lidocaine. He states the wound to his great toe initially was black, but that has improved with the silver gel. He also reports swelling and pain to the right foot. He does note that he gets significant pain to his right foot after standing or his leg dangling for prolonged periods of time, it is improved whenever he rests and elevates his foot. He currently complains of chills but denies any fever, sweats, lightheadedness, dizziness, chest pain, shortness of breath, nausea, vomiting, abdominal pain, changes bowel or urinary habits. He reports having a limited amount of insulin and does take that occasionally when he feels his sugars are high. He does not monitor his blood sugar due to inability to afford test trips. [place] and not having the means to drive. He therefore mostly utilizes the [facility] [place] and [facility]. 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 History obtained from patient and ED provider. He denies any alcohol use. He does use chewing tobacco daily. Admission Exam Per Admitting Provider Constitutional: WD/WN, vitals as above, NAD, sitting up in bed, pleasant, conversing easily Head: Normocephalic, Atraumatic Eyes: conjunctivae normal, anicteric sclerae ENMT: external ear and nose normal, oropharynx with very poor dentition Neck: tnormal visual inspection Respiratory: normal respiratory effort, lungs clear to auscultation, no wheeze, rales, rhonchi. Normal insp/exp effort, no accessory muscle use Cardiovascular: RRR, no murmur, no edema Vessels: no JVD or carotid bruit Chest: normal inspection of chest Abdomen: normal bowel sounds, soft, nontender, no hepatosplenomegaly Musculoskeletal: no cyanosis or clubbing, extremities motor strength 5/5 Skin: no rashes, warm and dry normal turgor + Distal aspect of R great toe wound with central granulation and R 5th toe plantar base wound, please refer to ED provider Documentation for pictures Neurologic: PERRL, EOMI, accommodation nl, no face palsy, no dysarthria CN's II-XI intact bilaterally and moves all extremities Psychiatric: A+Ox3, euthymic affect Lymphatic: no cervical or axillary lymphadenopathy : deferred Principal Diagnosis R foot wounds / diabetic wounds, possible R great toe osteomyelitis Discharge Exam Constitutional: WD/WN M in NAD, sitting up in chair Head: Normocephalic, Atraumatic Eyes: conjunctivae normal, anicteric sclerae ENMT: external ear and nose normal, poor dentition Neck: normal visual inspection Respiratory: normal respiratory effort, lungs clear to auscultation, no wheeze, rales, rhonchi. Cardiovascular: RRR, no murmur, no edema Chest: normal inspection of chest Abdomen: normal bowel sounds, soft, nontender Musculoskeletal: no LE edema, moves extremities Skin: no rashes, warm and dry + Distal aspect of R great toe wound and R 5th toe plantar base wound, photos in EMR Neurologic: PERRL, EOMI, no face palsy, no dysarthria, answers appropriately, moves all extremities Psychiatric: A+Ox3, euthymic affect Discharge Data Allergies Allergy/AdvReac Type Severity Reaction Status Date / Time morphine Allergy Severe RESPIRATORY Verified 05/14/25 18:37 DISTRESS metformin AdvReac Severe Diarrhea Verified 05/17/25 16:34 empagliflozin AdvReac Mild Gastrointestinal Verified 05/17/25 16:35 [From Jardiance] Upset Consultations 05/14/25 18:37 ED Decision to Admit Stat 05/14/25 18:41 Consult Podiatry Routine 05/15/25 13:11 Consult Vascular Surgery Routine 05/17/25 12:17 Consult Infectious Diseases Routine Procedures Performed Operation Date: 05/17/25 08:00 Actual Procedures p Angio Extremity Unilateral - Jose G Avelar MD s Lithotripsy Catheter Fem/Pop - Jose G Avelar MD s Tibial Peroneal Balloon - Jose G Avelar MD Ordered Studies 05/14/25 18:58 US arterial duplex LE RT Routine IMPRESSION: 1. Elevated velocity at the proximal right common femoral artery (PSV 380.6 cm/sec) is consistent with ?70% stenosis. 2. Post-stenotic elevated PSV at the proximal popliteal artery is also seen, suggets significant stenosis. 3. Abnormal monophasic waveforms as detailed. Findings suggest severe peripheral vascular disease. 4. JARED on the right is reduced, consistent with moderate PAD. 5. CTA correlation is advised as clinically warranted. 05/15/25 00:46 MR foot RT wo/w con Routine FINDINGS: Diffuse subcutaneous edema in dorsum of foot. Diffuse muscles edema in plantar compartment. Suspicious bone marrow edema in entire distal phalanx of great toe. Skin and subcutaneous thickening with mild ulceration seen overlying 1st toe. Mild interphalangeal and meta-tarsophalangeal joint effusion in 1st toe. The visualized flexor and extensor tendons are intact. The Lisfranc ligament is intact. The plantar fascia is intact with no evidence of plantar plate injury. There is no evidence of Jarquin's neuroma. No intermetatarsal bursitis is identified. IMPRESSION: 1. Diffuse subcutaneous edema in dorsum of foot. 2. Diffuse muscles edema in plantar compartment. 3. Suspicious bone marrow edema in entire distal phalanx of great toe- possible osteomyelitis. 4. Skin and subcutaneous thickening with suspicious ulceration seen overlying 1st toe. 5. Mild interphalangeal and meta-tarsophalangeal joint effusion in 1st toe. 05/16/25 09:14 CL Cath Imgs for PACS use only Routine 05/17/25 06:56 CL Cath Imgs for PACS use only Routine Hospital Course (1) Diabetic ulcer of right foot: (2) DMII (diabetes mellitus, type 2): (3) CAD (coronary artery disease): (4) Hyperlipidemia: Plan This is a 64-year-old male who has a significant past medical history of CAD, T2DM, diabetic neuropathy, diabetic retinopathy, HTN and HLD who presents to ED secondary to worsening right lower foot wounds x 1 month. #Diabetic Ulcer of plantar aspect of R great toe and base of R 5th toe, POA #Suspected osteomyelitis of R great toe #Diabetic neuropathy XR Foot - 1. No evidence of acute fracture, or dislocation. No lytic or sclerotic osseous lesions. 2. Soft tissue edema at the forefoot mainly surrounding 1st toe and the lateral aspect of the foot adjacent to the metatarsophalangeal joint. Arterial atherosclerotic wall calcifications. MRI Foot - 1. Diffuse subcutaneous edema in dorsum of foot. 2. Diffuse muscles edema in plantar compartment. 3. Suspicious bone marrow edema in entire distal phalanx of great toe- possible osteomyelitis. 4. Skin and subcutaneous thickening with suspicious ulceration seen overlying 1st toe. 5. Mild interphalangeal and meta-tarsophalangeal joint effusion in 1st toe. Arterial duplex of RLE- 1. Elevated velocity at the proximal right common femoral artery (PSV 380.6 cm/sec) is consistent with ?70% stenosis. 2. Post-stenotic elevated PSV at the proximal popliteal artery is also seen, suggets significant stenosis. 3. Abnormal monophasic waveforms as detailed. Findings suggest severe peripheral vascular disease. 4. JARED on the right is reduced, consistent with moderate PAD. 5. CTA correlation is advised as clinically warranted. Blood cultx - NGTD and wound cultures - mixed probable skin amandeep Consulted podiatry/ orthopedics - discussed w/ Dr. Lima - pt does not wish any amputation at this time. Recommend vascular surgery eval for planning of future treatment -> consulted Dr. Avelar -> now s/p RLE angiogram and revascularization Per Dr. Avelar Summary: 1. Right lower extremity --95+% calcified mid ACCOUNTING MANAGER ASSISTANT CONTROLLER, 90% mid popliteal. 100% short distal SURYA occlusion with bridging collaterals. COUNTRY PRINTER APPRENTICE, peroneal widely patent 2. Left lower extremity --iliacs, ACCOUNTING MANAGER ASSISTANT CONTROLLER widely patent 3. Successful angioplasty of right ACCOUNTING MANAGER ASSISTANT CONTROLLER with intravascular lithotripsy (shockwave 8 mm). 4. Successful angioplasty of right popliteal stenosis with intravascular lithotripsy (shockwave 5 mm) and drug-eluting balloon (5.0 x 100 Lutonix). 5. Successful angioplasty of right anterior tibial artery occlusion with 2.5 balloon Recommendations: Continue DAPT with ASA/Clopidogrel for at least 1 month Follow-up non-invasive vascular testing in 2 weeks. Follow-up with Dr. Slade (or other catalogue maker) and/or wound clinic Restart statin and consider YANET as outpt Empiric IV Cefepime and vancomycin for now Consulted wound care 05/17 Discussed w/ ID - if no debridement planned and no positive cultures - can DC on 2 weeks of PO augmentin and cipro #T2DM pt previously on insulin and jardiance; however stopped taking in August due to loss of insurance A1c 9.3, place on novolog SS for now, bsg in 70s in ED. CM consulted to evaluate for medicare/medicaid given age vs [facility] family living educator consulted - plan to DC pt on insulin. Per MARIBETH pt did not tolerate metformin, and also not to DC on jardiance 05/19 Discussed with the pt - pt tells me he has insulin about one month worth, he has both long acting and short acting. He also reports he has been closely working with his PCP and pharmacist at his PCP's office. Plan to closely follow up w/ PCP. He wishes to be discharged but does not have a ride. Will contact CM to help with transportation, likely to DC tmrw. #CAD #HTN #HLD hx of EDGARD in 2021 with inferior [place], dx with severe CAD previously was on ASA, plavix 75mg daily, metoprolol succinate 25mg bid, lisinopril 5mg daily and crestor 40mg HS he stopped everything but ASA due to inability to afford/lack of insurance Now on asa and plavix and prices checked - plavix is $4.90 restart statin Outpt ACEi Dispo: DC home, pt will follow up w/ Melly PCP, appointment was set up Total Time Total Time Spent Total Time Spent (In Minutes): 50 Discharge Plan Discharge Items Patient Disposition: Home - Self-Care Reason For Visit: R FOOT WOUND INFECTIONS Discharge Diagnosis: R foot wounds / diabetic wounds, possible R great toe osteomyelitis Condition on Discharge: Good Activity: Per Instructions section Non-emergency contact: Primary Care Provider, Surgeon and Specialist Call non-emergency contact if: you have any medication questions and your symptoms worsen Follow-up/Referrals: Home Loco MD [Primary Care Provider] - (Date & Time 05/29/2025 11:00 AM Provider: Fariha Ellis MD General Internal Medicine [facility] Date & Time 05/29/2025 10:00 AM Provider: Pharmacist1, [facility], [facility] ) Diet: Carb Consistent or DM2 and Heart Healthy Addtl Attending Provider Instructions: Follow up with primary care physician , vascular surg./ cardiology and catalogue maker. Follow up with Dr. Avelar (vasc. surg./ cardiology) in 2 weeks. It is recommended that you follow up with Dr. Slade (podiatry) or any other catalogue maker within 1-2 weeks. You should follow up with wound care. Continue using your home insulin. Continue taking aspirin. In addition, take plavix for at least 1 month, take statin and antibiotics as prescribed. Addtl Division Officer Weapons Department Provider Instructions: DIABETES RECOMMENDATIONS: 1.) Obtain a prescription for a talking meter/supplies (Prodigy Voice Meter) from Winnie or Dr. Loco's office so that you can start checking your blood sugar levels at home. Prior authorization will need to be completed indicating the reason you need a talking meter. 2.) Resume Lantus and Novolog. Work with Winnie or Dr. Loco's office to com plete one of the patient assistance applications from [employer] (Tresiba and Novolog) or [employer] (Lantus and Admelog) to receive both long-acting and rapid- acting insulins for free. 3.) Aim to maintain blood sugar levels below 180 (ideally less than 140 before meals) to support healing and continued recovery. Please notify your provider of blood sugar levels frequently above 180 or below 70. Pending Studies at Discharge: Yes Studies:: final blood cultx results Stand-Alone Forms: My [employer], Smoking Cessation Medications and DC Order Prescriptions: New clopidogrel 75 mg Tablet 75 mg PO QAM Qty: 30 0RF amoxicillin-pot clavulanate 875-125 mg tablet 1 tab PO BID 14 Days Qty: 28 0RF ciprofloxacin HCl 500 mg tablet 500 mg PO BID 14 Days Qty: 28 0RF atorvastatin 40 mg tablet 40 mg PO HS Qty: 30 0RF Advanced Probiotic 625 mg (10 billion cell) Capsule 1 cap PO DAILY Qty: 14 0RF oxycodone 5 mg Tablet 5 mg PO Q4H PRN (Reason: pain) Qty: 7 0RF Continued aspirin 81 mg Tablet,Delayed Release (Dr/Ec) 81 mg PO DAILY vitamin B comp and C no.3 76-36-68-5-300 mg Capsule 1 cap PO DAILY cinnamon bark-chromium picolin 500-100 mg-mcg Capsule 1 cap PO DAILY PreserVision AREDS 4,296 mcg-226 mg-90 mg Capsule 1 cap PO BID Discharge Orders: Discharge Order (Routine); Ordered 05/20/25 Ordered By: Austin F. Knab Krames/Other Patient Handouts: Managing Type 2 Diabetes, Diabetes Foot Infections Tx, Diabetes Foot Injury Tx, Healthy Meals for Diabetes, Understanding Carbohydrates, Diabetes: Keeping Feet Healthy, Diabetes Carbs Fats Protein, Diabetes: Ways to Take Medicine, Diabetes Support, Taking Medicine for Diabetes, Special Foot Care for Diabetes Admission Data Admit Date/Time: 05/14/25 18:41 Attending Provider: Austin Hollis Admit Provider: Garrett Sahu Primary Care Provider: Home Loco Other Providers: Garrett Sahu; Malik Viera; Jose G Avelar; Zachary Keita; Robbie Holcomb; Tejas Riley I.; Ulysses Crawley II; Luma Brunner; Alexis Dallas; Parveen Posada; Denys Lee; Deb Silveira; Home Loco Other Interventions: Discharge Summary Assessment (RN) Last Done: 05/20/25 11:19
== END 2025-05-20 12:47 | disposition home or self-care (01) | DRG 629 ==
LOC: ED 17:05 → 3W 18:41 → SUATTDRO 18:41 → 3W 21:02 → 4W 05-17 11:30
PROC: CLB.AEU (2025-05-17 08:00)

== ENCOUNTER 2025-08-21 17:08 | Inpatient (IN) ==
[2025-08-21 17:47] LABS: Hematocrit (blood only) 36.5 % (42.0-52.0); Hemoglobin 11.8 g/dl (14.0-18.0); Immature Granulocytes # (auto) 0.03 K/uL (0.01-0.20); Immature Granulocytes % (auto) 0.5 %; Mean Corpuscular Hemoglobin 28.3 pg (25.0-34.0); Mean Corpuscular Volume 87.5 fL (80.0-100.0); Platelet Count 328 K/uL (130-400); RDW Standard Deviation 44.8 fL (36.4-46.3); Red Blood Count 4.17 M/uL (4.70-6.10); White Blood Count 6.23 K/ul (4.8-10.8)
[2025-08-21 18:25] LABS: Alanine Aminotransferase 10.0 U/L (7-52); Albumin Globulin Ratio 1.0 (0.9-2); Albumin Level 4.0 gm/dl (3.4-5.0); Alkaline Phosphatase 102.0 U/L (34-104); Anion Gap 9.0 (3-11); Bilirubin,Total 0.4 mg/dl (0.2-1.0); Blood Urea Nitrogen 28.0 mg/dl (6-23); Calcium 9.1 mg/dl (8.6-10.3); Carbon Dioxide 25.0 mmol/L (21-32); Chloride 99.0 mmol/L (98-107); Creatinine Clr Calc Pharmacy 63.6 ml/min; Globulin 4.0 gm/dl (2.5-4.0); Glucose 266.0 mg/dl (70-99(Fasting)); Potassium 4.2 mmol/L (3.5-5.1); Sodium 133.0 mmol/L (136-145); Total Protein 8.0 gm/dl (6.0-8.3)
[2025-08-21] MEDS ORDERED: VANCOMYCIN CONSULT ACTIVE PRN (19:51)
--- NOTE | 2025-08-21 19:55 | Emergency Department Note ---
Impression & Plan Osteomyelitis of great toe of right foot, DMII (diabetes mellitus, type 2), Diabetic ulcer of right great toe, Diabetic ulcer of right foot ED Provider Note NAME: ANETA VERA AGE: 64 SEX: M : 1960 ARRIVES VIA: Walk-In INFORMANT: Patient ED PROVIDER(S): Marvin Galindo MD CHIEF COMPLAINT: Foot infection PLAN: Disposition: Admit MEDICAL DECISION MAKING: The patient is a pleasant 64-year-old gentleman with a past medical history of diabetes with history of right toe osteomyelitis, history of PAD status post angioplasty, history of CAD history of PCI,, hyperlipidemia who presents to the emergency department via walk-in for evaluation of recurrence of right great toe infection which he reports his son only noticed today but he was not aware of this due to his poor vision secondary to his diabetic retinopathy. Patient denies feeling any pain or discomfort in the area either. In retrospect patient describes noting that he had a wet ulcer from his shoes that were too small. The patient presents in the setting of being admitted to this facility in April of this year for osteomyelitis of the toe where amputation was recommended but the patient preferred to defer this if possible. Patient denies any follow-up with orthopedics or podiatry following his admission. Patient cannot recall the last time he saw his primary care provider but has a scheduled appointment in September. On evaluation the patient is no distress, afebrile with heart in the 90s and vital signs otherwise stable. Right great toe demonstrates ulceration with scant purulence of the distal plantar aspect and medial aspect of the great toe with associated erythema warmth and edema extending to the midfoot there is also. A superficial ulceration of the lateral aspect of the forefoot. WBC complex within normal limits. H/H similar to prior. There is no neutrophilia or left shift. Chemistry without metabolic acidosis. Glucose is 266. ESR and CRP are elevated at 85 and 5.7, respectively. Procalcitonin is not elevated. X-ray of the right foot was obtained and demonstrates cortical irregularity and demyelinization of the medial proximal metaphysis of the distal phalanx suspicious for osteomyelitis. Empiric treatment shaded with IV Zosyn and vancomycin at this time. Case was discussed with [facility] Germain, [facility] who will evaluate the patient for admission. Further management per admitting team. Triage Nursing notes reviewed and agree them. Prior/external medical records reviewed Vital Signs: reviewed Differential diagnosis: Cellulitis, abscess, MRSA infection, DVT, necrotizing fasciitis, dermatitis, drug eruption, allergic reaction, as well as other pathologies. ER treatment provided: See below. Diagnostics interpreted by me: Cardiac Monitoring: An order for continuous cardiac monitoring was placed and demonstrated normal sinus rhythm, 92 bpm, no ectopy Laboratory studies: See below Imaging studies: See below Consultation(s): Case was discussed with Dr. Germain, [facility] hospitalist who will evaluate the patient for admission. HPI: Per MDM. ROS: See above HPI for pertinent positives & negatives. A total of 10 systems reviewed and were otherwise negative. VITALS:See Below PHYSICAL EXAMINATION: GENERAL: Awake, alert, in no distress HENT: Normocephalic, atraumatic. Oropharynx with dry mucous membranes and otherwise unremarkable. EYES: Normal conjunctiva. Sclera non-icteric. NECK: Supple. No nuchal rigidity. FROM. No JVD. RESPIRATORY: Clear to auscultation. CARDIAC: Regular rate, normal rhythm. Extremities warm and well perfused. Pulses equal. ABDOMEN: Soft, non-distended. No tenderness to palpation. No rebound or guarding. No masses. MUSCULOSKELETAL: Chest examination reveals no tenderness. The back is symmetrical on inspection without obvious abnormality. There is no CVA tenderness to palpation. Right great toe demonstrates ulceration with scant purulence of the distal plantar aspect and medial aspect of the great toe with associated erythema warmth and edema extending to the midfoot there is also. A superficial ulceration of the lateral aspect of the forefoot. LOWER EXTREMITIES: Calves are equal size bilaterally and non-tender. No edema. No discoloration. NEURO: Normal sensorium. No sensory or motor deficits noted. SKIN: No rash or jaundice noted. Marvin Galindo MD Past Med/Surg History Problem List (Updated 08/21/25 @ 23:07 by Marvin Galindo MD) Osteomyelitis of great toe of right foot (Acute) Diabetic vasculopathy Diabetic ulcer of right foot (Acute) Diabetic ulcer of right great toe (Acute) S/P drug eluting coronary stent placement S/P PTCA (percutaneous transluminal coronary angioplasty) Toe ulcer, right Hyperlipidemia DMII (diabetes mellitus, type 2) (Acute) Contusion of multiple sites (Acute) Fall (Acute) Hyperglycemia (Acute) Pain, dental (Acute) Medical History ST elevation myocardial infarction (STEMI) of inferior wall Admitted to intensive care unit DVT prophylaxis Elevated troponin Precordial chest pain Acute electrocardiogram changes Acute [place] STEMI (ST elevation myocardial infarction) CAD (coronary artery disease) Surgical History History of cholecystectomy (07/11/13) Family History Mother Coronary heart disease Father Diabetes Social History Smoking Status: Unknown if ever smoked Tobacco Type: Smokeless Tobacco (Dip or Chew) Do You Dip or Chew Tobacco: Yes; Hx Alcohol Use: No Hx Substance Use: No Preferred Language: Tamazight Communication Ability: Effective Beliefs That Will Affect Care: None Current Living Situation: Spouse Feels Safe at Home: Yes Assistive Devices: None Allergies Allergies Allergy/AdvReac Type Severity Reaction Status Date / Time morphine Allergy Severe RESPIRATORY Verified 08/21/25 20:26 DISTRESS metformin AdvReac Severe Diarrhea Verified 08/21/25 20:26 empagliflozin AdvReac Mild Gastrointestinal Verified 05/17/25 16:35 [From Jardiance] Upset Home Meds Home Medications Medication Instructions Recorded Confirmed aspirin 81 mg tablet,delayed 81 mg PO DAILY 06/01/19 08/21/25 release Previous Rx's Medication Instructions Recorded atorvastatin 40 mg tablet 40 mg PO HS #30 tabs 05/18/25 Results & Data (ED) Vital Signs Vital Signs - 24 hr 08/21/25 17:23 08/21/25 18:43 08/21/25 20:00 Temperature 36.4 C L Temperature Source Temporal Artery Scan Pulse Rate 92 H Pulse Rate [Right Finger] 68 85 Pulse Rhythm [Right Finger] Regular Regular Pulse Strength [Right Finger] Normal Normal Respiratory Rate 19 21 20 Respiratory Effort / Characteristics Non-Labored Spontaneous Non-Labored Spontaneous Non-Labored Spontaneous Respiratory Depth Normal Normal Normal Respiratory Pattern Regular Regular Blood Pressure 123/68 Blood Pressure [Right Arm] 143/82 H 162/104 H Blood Pressure Mean 86 Blood Pressure Mean [Right Arm] 102 123 Blood Pressure Position [Right Arm] Lying Lying Pulse Oximetry 98 100 99 Oxygen Delivery Method Room Air Room Air Room Air Sepsis Recent Fever Within 48 Hours No Sepsis New/Unexplained Change in Mental Status N/A Sepsis Action Taken by Nursing No Action Required 08/21/25 22:00 Temperature Temperature Source Pulse Rate Pulse Rate [Right Finger] 72 Pulse Rhythm [Right Finger] Regular Pulse Strength [Right Finger] Absent Respiratory Rate 20 Respiratory Effort / Characteristics Non-Labored Spontaneous Respiratory Depth Normal Respiratory Pattern Regular Blood Pressure Blood Pressure [Right Arm] 147/78 H Blood Pressure Mean Blood Pressure Mean [Right Arm] 101 Blood Pressure Position [Right Arm] Sitting Pulse Oximetry 97 Oxygen Delivery Method Room Air Sepsis Recent Fever Within 48 Hours Sepsis New/Unexplained Change in Mental Status Sepsis Action Taken by Nursing Laboratory Data Attestation: I reviewed the patient's lab results. 08/21/25 17:35 08/21/25 17:35 Lab Results 08/21/25 08/21/25 Range/Units 17:35 20:09 WBC 6.23 (4.8-10.8) K/ul RBC 4.17 L (4.70-6.10) M/uL Hgb 11.8 L (14.0-18.0) g/dl Hct 36.5 L (42.0-52.0) % MCV 87.5 (80.0-100.0) fL MCH 28.3 (25.0-34.0) pg MCHC 32.3 (32.0-36.0) g/dL RDW Std Deviation 44.8 (36.4-46.3) fL RDW Coeff of Saroj 13.9 (11.5-14.5) % Plt Count 328 (130-400) K/uL MPV 10.0 (9.4-12.4) fL Immature Gran % (Auto) 0.5 % Neut % (Auto) 67.2 % Lymph % (Auto) 18.3 % Meriwether % (Auto) 9.5 % Eos % (Auto) 3.5 % Baso % (Auto) 1.0 % Neut # (Auto) 4.19 (1.40-6.50) K/uL Lymph # (Auto) 1.14 L (1.20-3.40) K/uL Meriwether # (Auto) 0.59 (0.11-0.59) K/uL Eos # (Auto) 0.22 (0.00-0.50) K/uL Baso # (Auto) 0.06 (0.00-0.20) K/uL Immature Gran # (Auto) 0.03 (0.01-0.20) K/uL ESR 85 H (0-20) mm/hr Sodium 133 L (136-145) mmol/L Potassium 4.2 (3.5-5.1) mmol/L Chloride 99 (98-107) mmol/L Carbon Dioxide 25 (21-32) mmol/L Anion Gap 9 (3-11) BUN 28 H (6-23) mg/dl Creatinine 1.27 (0.6-1.4) mg/dl Est Cr Clr Drug Dosing 63.6 ml/min eGFR 62.70 BUN/Creatinine Ratio 22.0 H (10-20) Glucose 266 H (70-99(Fasting)) mg/dl Lactate 1.1 (0.4-2.0) mmol/L Calcium 9.1 (8.6-10.3) mg/dl Total Bilirubin 0.4 (0.2-1.0) mg/dl AST 13 (13-39) U/L ALT 10 (7-52) U/L Alkaline Phosphatase 102 (34-104) U/L C-Reactive Protein 5.73 H (0-0.5) mg/dl Total Protein 8.0 (6.0-8.3) gm/dl Albumin 4.0 (3.4-5.0) gm/dl Globulin 4.0 (2.5-4.0) gm/dl Albumin/Globulin Ratio 1.0 (0.9-2) Procalcitonin 0.06 (0-0.5) ng/ml Administered Medications Discontinued Medications Piperacillin Sod/Tazobactam Sod (Zosyn) 4.5 gm in 100 mls @ 200 mls/hr IV NOW ONE; Protocol Stop: 08/21/25 20:20 Last Admin: 08/21/25 20:34 Dose: 200 mls/hr Documented By: NAW Sodium Chloride (Nss) 1,000 mls @ 999 mls/hr IV .Q1H1M ONE Stop: 08/21/25 20:54 Last Admin: 08/21/25 20:37 Dose: 999 mls/hr Documented By: NAW Imaging Data Radiologist's Impression: Foot X-Ray 09/24/25 19:51 Exam(s): XR RIGHT FOOT, 3+ views EXAM: XR Right Foot Complete, 3 Views CLINICAL HISTORY: diabetic great toe infection/ulcer. TECHNIQUE: Frontal, lateral and oblique views of the right foot. COMPARISON: 05/14/2025 FINDINGS: Bones/joints: Cortical irregularity and demineralization of the medial proximal metaphysis of the distal phalanx suspicious for an erosion. No acute fracture. No dislocation. Soft tissues: Mild soft tissue irregularity and distal aspect of the 1st digit. No interstitial gas. Vascular calcifications. No radiopaque foreign body. IMPRESSION: Mild soft tissue irregularity distal aspect of the 1st digit consistent with a history of a infection/ulcer. Cortical irregularity and demineralization of the medial proximal metaphysis of the distal phalanx suspicious for an erosion/osteomyelitis. Redemonstrated vascular calcifications. Electronically signed by: Harjit Jackson M.D. 08/21/25 21:21 PM Discharge Plan Visit Data Chief Complaint: Infection, Wound Stated Complaint: RT WOUND INFECTION (REPEAT), BIG TOE ED Provider: Marvin Galindo Discharge Problem: Osteomyelitis of great toe of right foot, DMII (diabetes mellitus, type 2), Diabetic ulcer of right great toe, Diabetic ulcer of right foot Patient Disposition: Admitted As Inpatient Condition: Fair Forms Stand Alone Forms: [employer] Prescriptions Prescriptions: No Action aspirin 81 mg Tablet,Delayed Release (Dr/Ec) 81 mg PO DAILY atorvastatin 40 mg tablet 40 mg PO HS Qty: 30 0RF Referrals Referrals: Home Loco MD [Primary Care Provider] - Discharge Problem: DMII (diabetes mellitus, type 2) Qualifiers: Diabetes mellitus intermediate card tender insulin use: unspecified intermediate card tender insulin use status Diabetes mellitus complication status: with skin complications Diabetes mellitus complication detail: with foot ulcer Qualified Code(s): E11.621 - Type 2 diabetes mellitus with foot ulcer Diabetic ulcer of right foot Qualifiers: Diabetic foot ulcer location: toe Diabetes mellitus type: type 2 Non-pressure ulcer stage: unspecified non-pressure ulcer stage Qualified Code(s): E11.621 - Type 2 diabetes mellitus with foot ulcer
[2025-08-21] MEDS: PIPERACILLIN/TAZOBACTAM 4.5 GM/100 ML BAG IV ONE (20:34)
--- NOTE | 2025-08-21 20:36 | History & Physical Report ---
Date of Service August 21, 2025 Assessment & Plan (1) DMII (diabetes mellitus, type 2): (2) Toe ulcer, right: (3) Hyperlipidemia: (4) Diabetic vasculopathy: (5) Diabetic ulcer of right great toe: Plan Mr. Odonnell is a 64-year-old male who presented to the [facility] ED with continuation and worsening of wounds on his right foot beneath his fifth toe. This has been present and worsening since March 2025. He has debilitating diabetic retinopathy and claims that he can not see the extent of his foot injury. He has previously had MRI imaging for concerns for osteomyelitis of his great toe distal phalanx portion. He has been seen by Orthopedics previously and ampu tation was recommended and declined by patient with hopes of conservative management. He has been seen by Dr. Avelar and has undergone endovascular intervention as well. On examination his right foot great toe is erythematous with lateral and distal open wounds covered with Xeroform without malodor. His 5th toe lateral aspect of foot is quarter sized and malodorous with pustule drainage. Pt will be admitted for further evaluation of his right foot with continued IV abx, MRSA swab, wound culture, orthopedics consult and WOCN consult. Diabetic Ulcer of right great toe: Diabetic vasculopathy: No leukocytosis Right foot xray:Mild soft tissue irregularity distal aspect of the 1st digit consistent wiith a history of a infection/ulcer. Cortical irregularity and demineralization of the medial proximal metaphysis of the distal phalanx suspicious for an erosion/osteomyelitis. Redemonstrated vascular calcifications. Obtain wound culture of lateral aspect of foot wound MRSA screen Obtain MRI right foot Started on IV Vanco + Zosyn; continue for now and adjust based on wound cultures WOCN order Ortho consult DM2: Diabetic retinopathy: Insulin dependent; takes Levemir and Novolog Reports compliance with FSBS Check A1C May benefit from development educator HLD: Chronic Takes atorvastatin; continue Disposition: PCP: Dr. Loco Code Status: Full Code VTE Prophylaxis: Teds and SCDs for now I spent a total of 81 minutes coordinating, documenting, and providing care for this patient excluding time spent inthe performance of separately billed services or time spent by another provider/QHP. History of Present Illness Chief Complaint: toe infection Primary Care Provider: Home Loco MD Mr. Odonnell is a 64-year-old male who presented to the [facility] ED with continuation and worsening of wounds on his right foot beneath his fifth toe. This has been present and worsening since March 2025. He has debilitating diabetic retinopathy and claims that he can not see the extent of his foot injury. He has previously had MRI imaging for concerns for osteomyelitis of his great toe distal phalanx portion. He has been seen by Orthopedics previously and amputation was recommended and declined by patient with hopes of conservative management. He has been seen by Dr. Avelar and has undergone endovascular interv ention as well. On examination his right foot great toe is erythematous with lateral and distal open wounds covered with Xeroform without malodor. His 5th toe lateral aspect of foot is quarter sized and malodorous with pustule drainage. He denies fever, chills, GAN, dizziness, chest pain, SOB, abdominal pain/tenderness, N/V/D, recent falls or other trauma. He reports that he is compliant with his insulin at home and checking his blood sugars but was unable to tell me a range. We discussed fear around amputation and he agreed that he is fearful of not being able to walk. Patient uses smokeless tobacco daily, drinks yolie with his last drink being 3 days ago; usually a capful per evening. No recreational drug use. Pt will be admitted for further evaluation of his right foot with continued IV abx, MRSA swab, wound culture, orthopedics consult and WOCN consult. Allergies Allergy/AdvReac Type Severity Reaction Status Date / Time morphine Allergy Severe RESPIRATORY Verified 08/21/25 20:26 DISTRESS metformin AdvReac Severe Diarrhea Verified 08/21/25 20:26 empagliflozin AdvReac Mild Gastrointestinal Verified 05/17/25 16:35 [From Jardiance] Upset Home Medications Medication Instructions Recorded Confirmed Type aspirin 81 mg tablet,delayed 81 mg PO DAILY 06/01/19 08/21/25 History release atorvastatin 40 mg tablet 40 mg PO HS #30 tabs 05/18/25 08/21/25 Rx insulin aspart U-100 100 unit/mL 6 unit subcut TIDM 08/21/25 08/21/25 History (3 mL) subcutaneous pen insulin detemir U-100 100 unit/mL 33 unit subcut QAM 08/21/25 08/21/25 History (3 mL) subcutaneous pen clopidogrel 75 mg tablet (Plavix) 75 mg PO QAM 08/22/25 08/22/25 History dulaglutide 1.5 mg/0.5 mL 1.5 mg subcut WK 08/22/25 08/22/25 History subcutaneous pen injector (Trulicity) empagliflozin 25 mg tablet 25 mg PO QAM 08/22/25 08/22/25 History lisinopril 5 mg tablet 5 mg PO QAM 08/22/25 08/22/25 History metoprolol succinate 25 mg 25 mg PO QAM 08/22/25 08/22/25 History tablet,extended release 24 hr oxycodone 5 mg tablet 5 mg PO Q4H PRN Pain 08/22/25 08/22/25 History vitamins A,C,P-flje-ensrqo 4,296 1 cap PO QAM 08/22/25 08/22/25 History mcg-226 mg-90 mg capsule (PreserVision AREDS) Past Med/Surg History Problem List (Updated 08/21/25 @ 23:07 by Marvin Galindo MD) Osteomyelitis of great toe of right foot (Acute) Diabetic vasculopathy Diabetic ulcer of right foot (Acute) Diabetic ulcer of right great toe (Acute) S/P drug eluting coronary stent placement S/P PTCA (percutaneous transluminal coronary angioplasty) Toe ulcer, right Hyperlipidemia DMII (diabetes mellitus, type 2) (Acute) Contusion of multiple sites (Acute) Fall (Acute) Hyperglycemia (Acute) Pain, dental (Acute) Medical History ST elevation myocardial infarction (STEMI) of inferior wall Admitted to intensive care unit DVT prophylaxis Elevated troponin Precordial chest pain Acute electrocardiogram changes Acute [place] STEMI (ST elevation myocardial infarction) CAD (coronary artery disease) Surgical History History of cholecystectomy (07/11/13) Family History Mother Coronary heart disease Father Diabetes Social History Smoking Status: Never smoker Tobacco Type: Smokeless Tobacco (Dip or Chew) Do You Dip or Chew Tobacco: Yes; Hx Alcohol Use: Yes Alcohol type: hard liquor Hx Substance Use: No Preferred Language: Burmese Communication Ability: Effective Higher Level Teaching Assistant Required: No Beliefs That Will Affect Care: None Current Living Situation: Alone Current Living Situation Comment: apartment Feels Safe at Home: Yes Safety Concerns: Feels Safe At This Time Assistive Devices: None Review of Systems Review of Systems: Neuro: (-) Falls, trauma, slurred speech HEENT: (-) GAN, dizziness, dysphagia, visual or auditory changes CV: (-) CP, palpitations, swelling Resp: (-) SOB GI: (-) appetite changes, N/V/D, bowel changes : (-) urinary changes Skin: (-) rashes Psych: (-) anxiety, depression Physical Exam Physical Exam: See Dr. Germain addendum for physical examination Results & Data Results & Data Vital Signs (Past 12 Hours) Vital Signs Temp Pulse Pulse Resp BP BP Pulse Ox 08/21/25 18:43 68 21 143/82 H 100 08/21/25 17:23 36.4 C L 92 H 19 123/68 98 O2 Del Method 08/21/25 18:43 Room Air 08/21/25 17:23 Room Air Laboratory Results Short CBC 08/21/25 Range/Units 17:35 WBC 6.23 (4.8-10.8) K/ul Hgb 11.8 L (14.0-18.0) g/dl Hct 36.5 L (42.0-52.0) % Plt Count 328 (130-400) K/uL BMP 08/21/25 17:35 Sodium 133 L Potassium 4.2 Chloride 99 Carbon Dioxide 25 BUN 28 H Creatinine 1.27 Glucose 266 H Calcium 9.1 Liver Function 08/21/25 Range/Units 17:35 Total Bilirubin 0.4 (0.2-1.0) mg/dl AST 13 (13-39) U/L ALT 10 (7-52) U/L Alkaline Phosphatase 102 (34-104) U/L Albumin 4.0 (3.4-5.0) gm/dl Code Status & VTE Plan Code Status Full Code in the event of cardiac or respiratory arrest VTE Prophylaxis Plan VTE Prophylaxis will be ordered: Yes Supervising Physician Co-Signing Physician Notes IM ATTENDING : Patient seen and examined. History obtained from patient and records. Concur with salient points upon review of preceding documentation by NORMA King. In addition, patient not taking all his blood pressure pills and antiplatelet medications due to financial constraints. Highest SBP of 180s documented at the ER. Patient without chest pain, SOB, headache symptoms. I take responsibility for plan of care below. FINAL ASSESSMENT AND PLAN as follows : Hypertensive urgency Secondary to medication noncompliance DM foot infection right Osteomyelitis on imaging No sepsis for now Rule out abscess CAD status post stent PVD status post surgery Hyperlipidemia on statin Rx DM2 insulin requiring, suboptimal control as of recent hemoglobin A1c of 9.3 last April 2025 Chronic anemia, hemoglobin at baseline Past tobacco abuse Admit to [facility] Facilitate home BP meds CS, Daptomycin and Cefepime for now CT right foot Orthopedics consult re: DM foot infection ([place] [facility] Resume patient aspirin for secondary CAD prevention. Hold Plavix until patient seen by orthopedics given possible procedure Basal bolus insulin, ISS BG goal 110-140, carb count coverage Social service re: assistance for procurement of medications DVT prophylaxis. Lovenox subcu Full code I spent a total of 30 minutes coordinating, documenting, and providing care for this patientexcludingtime spent by another provider/QHP. Text document was generated using Wannyi voice recognition software. It may contain grammatical or spelling errors. Kindly contact undersigned for clarification of any documentation item in question.
[2025-08-21] MEDS: SODIUM CHLORIDE 0.9% 1,000 ML IV ONE (20:37)
--- NOTE | 2025-08-21 21:22 | XRay Report ---
Exam(s): XR RIGHT FOOT, 3+ views EXAM: XR Right Foot Complete, 3 Views CLINICAL HISTORY: diabetic great toe infection/ulcer. TECHNIQUE: Frontal, lateral and oblique views of the right foot. COMPARISON: 05/14/2025 FINDINGS: Bones/joints: Cortical irregularity and demineralization of the medial proximal metaphysis of the distal phalanx suspicious for an erosion. No acute fracture. No dislocation. Soft tissues: Mild soft tissue irregularity and distal aspect of the 1st digit. No interstitial gas. Vascular calcifications. No radiopaque foreign body. IMPRESSION: Mild soft tissue irregularity distal aspect of the 1st digit consistent with a history of a infection/ulcer. Cortical irregularity and demineralization of the medial proximal metaphysis of the distal phalanx suspicious for an erosion/osteomyelitis. Redemonstrated vascular calcifications. Electronically signed by: Harjit Jackson M.D. 08/21/25 21:21 PM
[2025-08-21] MEDS ORDERED: PROMETHAZINE 6.25 MG/50.25 ML BAG IV PRN (22:49)
[2025-08-21] MEDS ORDERED: HYDROmorphone INJ 0.5 MG/0.5 ML SYR IV PRN (22:52)
[2025-08-21] MEDS ORDERED: DAPTOmycin 600 MG in SYRINGE 0 ML IV SCH (23:00)
[2025-08-21] MEDS: DAPTOmycin 600 MG in SYRINGE 0 ML IV ONE (23:43)
[2025-08-21] MEDS: VANCOMYCIN HCL 2,250 MG in SODIUM CHLORIDE 0.9% 500 ML IV ONE (23:47)
[2025-08-22] MEDS: OPTIRAY 320 100ml IV ONE (00:44)
[2025-08-22] MEDS ORDERED: GLUCOSE 40% GEL 15 GM TUBE PO PRN (00:58)
[2025-08-22] MEDS ORDERED: DEXTROSE 50% 50 ML SYRINGE IV PRN (00:58)
[2025-08-22] MEDS ORDERED: GLUCOSE 10 TAB/TUBE PO PRN (00:58)
[2025-08-22] MEDS ORDERED: GLUCAGON FOR INJ 1 MG VIAL SQ PRN (00:58)
[2025-08-22] MEDS ORDERED: CARBOHYDRATES FOR HYPOGLYCEMIA PO PRN (00:58)
[2025-08-22] MEDS: METOPROLOL TARTRATE 1 MG/ML VIAL IV STA (01:14)
[2025-08-22] MEDS: INSULIN ASPART PER UNIT CHARGE SC SCH (01:45)
[2025-08-22] MEDS: LANTUS PER UNIT CHARGE SQ STA (01:45)
[2025-08-22] MEDS: CEFEPIME 2000MG 2,000 MG/20 ML SYR IV SCH (01:45)
[2025-08-22] MEDS: ACETAMINOPHEN 325 MG TAB PO PRN (01:46)
--- NOTE | 2025-08-22 03:22 | CT Scan Report ---
EXAM: CT foot RT w con CLINICAL HISTORY: swelling ro abscess TECHNIQUE: Contiguous axial CT images of the right foot were obtained with intravenous contrast. Coronal and sagittal reconstructions were also performed and indicated to increase the sensitivity for detecting clinically relevant pathology. The CT scan was performed according to ALARA (as low as reasonably achievable). COMPARISON: , 05/15/2025 00:10:00 CERTIFIED MEDICAL DOSIMETRIST FINDINGS: Diffuse subcutaneous edema is present in the dorsum of the foot. Mild edema is seen in the plantar muscles of the foot. A tiny radiodensity is seen at medial aspect of tuft of distal phalanx of great toe.- also seen in prior study. There is no acute fracture or dislocation. There is no destructive osseous lesion. The visualized muscles and tendons appear grossly unremarkable. There is no cortical destruction to suggest osteomyelitis. No abscess formation is seen. There is no significant joint effusion. There are no soft tissue masses. IMPRESSION: 1. Diffuse subcutaneous edema in the dorsum of the foot - stable. 2. Mild edema in the plantar muscles of the foot - stable. 3. No definite abscess detected. Electronically signed by Niko Javier 08-22-2025 02:10 AM
[2025-08-22] MEDS: METOPROLOL SUCC 25MG EXT REL TAB PO SCH (04:25)
[2025-08-22 07:35] LABS: Hematocrit (blood only) 31.3 % (42.0-52.0); Hemoglobin 10.4 g/dl (14.0-18.0); Immature Granulocytes # (auto) 0.02 K/uL (0.01-0.20); Immature Granulocytes % (auto) 0.3 %; Mean Corpuscular Hemoglobin 29.5 pg (25.0-34.0); Mean Corpuscular Volume 88.7 fL (80.0-100.0); Platelet Count 303 K/uL (130-400); RDW Standard Deviation 45.3 fL (36.4-46.3); Red Blood Count 3.53 M/uL (4.70-6.10); White Blood Count 6.42 K/ul (4.8-10.8)
[2025-08-22 08:00] LABS: Anion Gap 7.0 (3-11); Blood Urea Nitrogen 21.0 mg/dl (6-23); Calcium 8.3 mg/dl (8.6-10.3); Carbon Dioxide 25.0 mmol/L (21-32); Chloride 103.0 mmol/L (98-107); Creatinine Clr Calc Pharmacy 72.2 ml/min; Glucose 180.0 mg/dl (70-99(Fasting)); Potassium 4.1 mmol/L (3.5-5.1); Sodium 135.0 mmol/L (136-145)
[2025-08-22] MEDS: ASPIRIN 81 MG ECTAB PO SCH (09:22)
[2025-08-22] MEDS: CEROVITE ADV FORMULA TAB PO SCH (09:22)
[2025-08-22] MEDS: LANTUS PER UNIT CHARGE SQ SCH (09:22)
[2025-08-22] MEDS: ENOXAPARIN INJ 40 MG/0.4 ML SYR SQ SCH (09:22)
--- NOTE | 2025-08-22 10:53 | Hospitalist Progress Note ---
Date of Service August 22, 2025 Assessment & Plan (1) DMII (diabetes mellitus, type 2): (2) Toe ulcer, right: (3) Hyperlipidemia: (4) Diabetic vasculopathy: (5) Diabetic ulcer of right great toe: Plan Patient is a 64y/o M with PMHx significant for uncontrolled insulin-dependent DM type II, extensive diabetic retinopathy of both eyes, diabetic foot ulcers, multivessel CAD with history of inferior STEMI/subacute total acute proximal RCA occlusion in March 2022 s/p EDGARD x 2 to the RCA, remote history of cardiac catheterization in 2012 s/p EDGARD x 3 to the proximal to mid LAD/OM2/proximal ramus, HLD, HTN, PAD, CKD stage IIIb, tobacco use and medical noncompliance who presented to the ED on 08/21/25 due to concern for reinfection of a diabetic ulcer on the lateral aspect of his R great toe. Diabetic ulcers on lateral R great toe and plantar aspect of R fifth metatarsal head present since March 2025. Confinement under our service in April 2025 with possible osteomyelitis of the distal phalanx of the R great toe, completed ABX therapy. Was seen by orthopedics, Dr. Lima, last confinement and amputation was recommended however this was declined by the patient. #Diabetic ulcer of R great toe -- POA #Diabetic ulcer overlying plantar aspect of R 5th metatarsal head -- POA R foot XR: Mild soft tissue irregularity distal aspect of the 1st digit c/w history of an infection/ulcer. Cortical irregularity and demineralization of the medial proximal metaphysis of the distal phalanx suspicious for an erosion/osteomyelitis. R foot CT: Diffuse subcutaneous edema in the dorsum of the foot - stable. Mild edema in the plantar muscles of the foot - stable. A tiny radiodensity is seen at medial aspect of tuft of distal phalanx of great toe - also seen in prior study. No destructive osseous lesion. No cortical destruction to suggest osteomyelitis. No abscess formation. Blood cultures pending Wound cultures pending (R lateral great toe ulcer, plantar aspect of R 5th metatarsal head ulcer) Nasal MRSA negative Will continue empiric IV daptomycin and cefepime pending above culture results Appreciate WOCN consult Appreciate podiatry consult for further recommendations --> ? need for debridement, ? R foot MRI #Uncontrolled insulin-dependent DMII Hgb A1c 9.3% last confinement, updated Hgb A1c 10.9% this admission On Levemir 33U QAM, 6U Novolog with meals TID at home --> states he is compliant with this Was previously on Jardiance, no longer on this since 2 cost Continue basal/bolus regimen while inpatient Appreciate glycemic pharmacy consult for assistance with insulin management Appreciate DM educator consult, re: previous documented issues with noncompliance and insulin rationing #Extensive diabetic retinopathy of both eyes Limited vision at baseline, R>L Hard for patient to visualize extent of R foot ulcerations #Peripheral arterial disease Seen by Dr. Avelar with vascular medicine last admission in April 2025: LLE angiogram: iliacs, BLOOD BANK CREDIT CLERK widely patent RLE angiogram: 95+% calcified mid BLOOD BANK CREDIT CLERK, 90% mid popliteal, 100% short distal SURYA occlusion with bridging collaterals; BLOCK MASON, peroneal widely patent * S/p successful angioplasty of R BLOOD BANK CREDIT CLERK with intravascular lithotripsy, R popliteal stenosis with intravascular lithotripsy and drug-eluting balloon and R anterior tibial artery occlusion with 2.[address] Avelar on 05/17/25 #CKD stage IIIb Baseline Cr around 1.1-1.3 Cr remains stable on repeat labs today Continue to monitor and avoid nephrotoxic agents as able #HLD #Multivessel CAD Has not seen [facility] cardiology since 2021 per chart review H/o inferior STEMI/subacute total acute proximal RCA occlusion in March 2022 s/p EDGARD x 2 to the RCA Remote h/o cardiac catheterization in 2012 s/p EDGARD x 3 to the proximal to mid LAD/OM2/proximal ramus Continue statin, ASA Plavix currently on hold pending podiatry evaluation #HTN Continue BB, lisinopril with hold parameters DVT Prophylaxis: SQ Lovenox Code Status: FULL CODE PCP: Home Loco MD Disposition: Unclear DC plans at this time Patient seen in collaboration with Dr. Geiger. Please see addendum. I spent a total of 52 minutes coordinating, documenting, and providing care for this patient excluding time spent in the performance of separately billed services or time spent by another provider/QHP. This included personally reviewing all current laboratories and imaging studies, medical reconciliation, outpatient chart review and discussion with specialists. This chart was completed in part utilizing Speech Voice Recognition Software. Grammatical errors, random word insertions, pronoun errors, and incomplete sentences are an occasional consequence of this system due to software limitations, ambient noise, and hardware issues. Any formal questions or concerns about the content, text, or information contained within the body of this dictation should be directly addressed to the provider for clarification. Admission and Anticipated Discharge Date Admission Date: August 21, 2025 Supervising Physician Co-Signing Physician Notes Patient seen and examined at bedside. Patient presented with ulceration in his foot. MRI foot confirms osteomyelitis. Will get infectious disease on board for antibiotic recommendation. Podiatry on board as well. I have reviewed the advanced practitioner's documentation, and I agree with, and take responsibility for the plan of care I spent a total of 20 minutes coordinating, documenting, and providing care for this patient excluding time spent in the performance of separately billed services. All of the aforementioned completed while collaborating with the assigned advanced practitioner for a full treatment plan Subjective Patient seen and examined in room 379-1. Feels right great toe erythema has slightly worsened overnight. Admits to having some chills and feeling feverish overnight however he remained afebrile. BLE tactile sensation intact. Has been dealing with these right foot wounds since around March. Review of Systems Review of Systems: At least ten systems reviewed and negative, except as noted in the subjective section. Physical Exam Physical Exam: General: M, NAD, sitting up in bed, A&Ox3, pleasant HEENT: Normocephalic, atraumatic, moist mucous membranes, + cataracts Respiratory: Normal respiratory effort, CTAB Cardiovascular: RRR, normal peripheral pulses, no BLE edema Abdomen/GI: Normal bowel sounds, soft, nontender to palpation in all quadrants Extremities/MSK: R foot warm, palpable RLE PT and DP pulse, normal R foot capillary refill, + erythematous R great toe with lateral and distal open wounds but no visible drainage, + quarter-sized wound on the plantar aspect of the 5th metatarsal with scant dried purulent drainage seen on the bandage which was removed from covering the wound, decreased sensation to light in feet bilaterally (stocking-like distribution) which is unchanged from baseline per patient, able to actively move all extremities, extremities motor strength intact Neurologic: No overt focal deficits, CN's II-XI not formally tested but appear grossly intact bilaterally Results & Data Results & Data Vital Signs (Past 12 Hours) Vital Signs Temp Pulse Pulse Resp BP BP Pulse Ox 08/22/25 07:36 36.6 C 68 16 101/62 98 08/22/25 04:23 37 C 75 14 118/68 97 08/22/25 02:00 36.9 C 85 20 162/73 H 98 08/22/25 00:58 37.1 C 89 18 173/87 H 97 08/22/25 00:04 74 20 152/98 H 08/21/25 23:37 84 08/21/25 23:19 85 20 189/107 H 98 O2 Del Method 08/22/25 07:36 Room Air 08/22/25 04:23 Room Air 08/22/25 02:00 Room Air 08/22/25 00:58 Room Air 08/22/25 00:04 Room Air 08/21/25 23:37 08/21/25 23:19 Room Air Laboratory Results Short CBC 08/21/25 08/22/25 Range/Units 17:35 07:10 WBC 6.23 6.42 (4.8-10.8) K/ul Hgb 11.8 L 10.4 L (14.0-18.0) g/dl Hct 36.5 L 31.3 L (42.0-52.0) % Plt Count 328 303 (130-400) K/uL BMP 08/21/25 08/22/25 17:35 07:10 Sodium 133 L 135 L Potassium 4.2 4.1 Chloride 99 103 Carbon Dioxide 25 25 BUN 28 H 21 Creatinine 1.27 1.12 Glucose 266 H 180 H Calcium 9.1 8.3 L Liver Function 08/21/25 Range/Units 17:35 Total Bilirubin 0.4 (0.2-1.0) mg/dl AST 13 (13-39) U/L ALT 10 (7-52) U/L Alkaline Phosphatase 102 (34-104) U/L Albumin 4.0 (3.4-5.0) gm/dl (1) DMII (diabetes mellitus, type 2) Diabetes mellitus complication detail: with foot ulcer Diabetes mellitus complication status: with skin complications Diabetes mellitus care home insulin use: unspecified care home insulin use status Qualified Code(s): E11.621 - Type 2 diabetes mellitus with foot ulcer; L97.509 - Non-pressure chronic ulcer of other part of unspecified foot with unspecified severity
[2025-08-22 10:59] LABS: Hemoglobin A1C 10.9 % (4.5-5.6)
--- NOTE | 2025-08-22 11:56 | Podiatry Consultation ---
Date of Consultation August 22, 2025 Assessment & Plan (1) Osteomyelitis of great toe of right foot: (2) Diabetic vasculopathy: (3) Diabetic ulcer of right great toe: (4) S/P drug eluting coronary stent placement: Plan Order: MRI right foot Order: Wound culture right foot great toe. Order: Once daily dressing change right foot ulcers with Aquacel Ag and a DSD. Consult placed with Orthotics for more aggressive offloading of the right foot ulcers with high tide CAM boot modified to offload hallux and sub 5th met head ulceration. Vascular studies 08/02/2025. Pt currently refusing amputation at any level or aggressive surgical debridement of his right foot wounds. Treatment of the right foot wounds with continued antibiotic therapy, wound care, and aggressive offloading. Will require close follow up with wound care following discharge. Thank you for consulting Podiatry to aid in the care of this pt. Full consultation dictation to follow. History of Present Illness Reason for Consultation: Diabetic ulcer right foot x 2, cellulitis and concern for osteomyelitis of the right hallux. Attending Physician: Bart Geiger MD History of Present Illness 64-year-old male with past medical history significant for type 2 diabetes with diabetic peripheral neuropathy, diabetic retinopathy peripheral arterial disease status post right lower extremity endovascular intervention April 2025, coronary artery disease with history of STEMI, hyperlipidemia, hypertension, CKD stage III, tobacco use, medical noncompliance and chronic diabetic foot ulcers to the right. Patient was admitted to [facility] in April 2025 with MRI findings consistent with osteomyelitis of the distal phalanx of the hallux, diabetic ulcer of the hallux and subfifth metatarsal head. At that time he was seen by Dr. Kamran Lima with recommendation for amputation which patient refused. Patient opted for continuation of local wound care and antibiotics with recommended follow-up with wound care. Patient also underwent right lower extremity endovascular intervention by Dr. Avelar during that admission which was successful in improving blood flow to the right foot. Following discharge patient was lost to follow-up and continued to care for his wounds at home with dressing changes and antibiotic ointment on a regular basis. He believes initial ulcerations were due in part to ill fitting shoes however he has continued to wear the same shoes as his primary shoe gear and has not attempted any further offloading of the ulcerations. Due to diabetic neuropathy and retinopathy patient was unable to feel the ulceration nor see his foot well to recognize current infection and was only discovered when his son came to visit him recently. He reports to [facility] emergency department with increased redness and swelling to the right great toe. Plain film radiographs of the right foot 08/21/2025 with cortical irregularity and demineralization of the medial proximal metaphysis of the distal phalanx suspicious for osteomyelitis. Pertinent admission labs, ESR 85, CRP 5.73, hemoglobin A1c 10.9, procalcitonin 0.06. Allergies Allergy/AdvReac Type Severity Reaction Status Date / Time morphine Allergy Severe RESPIRATORY Verified 08/21/25 20:26 DISTRESS metformin AdvReac Severe Diarrhea Verified 08/21/25 20:26 empagliflozin AdvReac Mild Gastrointestinal Verified 05/17/25 16:35 [From Jardiance] Upset Home Medications Medication Instructions Recorded Confirmed Type aspirin 81 mg tablet,delayed 81 mg PO DAILY 06/01/19 08/21/25 History release atorvastatin 40 mg tablet 40 mg PO HS #30 tabs 05/18/25 08/21/25 Rx insulin aspart U-100 100 unit/mL 6 unit subcut TIDM 08/21/25 08/21/25 History (3 mL) subcutaneous pen insulin detemir U-100 100 unit/mL 33 unit subcut QAM 08/21/25 08/21/25 History (3 mL) subcutaneous pen clopidogrel 75 mg tablet (Plavix) 75 mg PO QAM 08/22/25 08/22/25 History dulaglutide 1.5 mg/0.5 mL 1.5 mg subcut WK 08/22/25 08/22/25 History subcutaneous pen injector (Trulicity) lisinopril 5 mg tablet 5 mg PO QAM 08/22/25 08/22/25 History metoprolol succinate 25 mg 25 mg PO QAM 08/22/25 08/22/25 History tablet,extended release 24 hr oxycodone 5 mg tablet 5 mg PO Q4H PRN Pain 08/22/25 08/22/25 History vitamins A,C,R-bzin-dpseyw 4,296 1 cap PO QAM 08/22/25 08/22/25 History mcg-226 mg-90 mg capsule (PreserVision AREDS) Patient History Medical History ST elevation myocardial infarction (STEMI) of inferior wall Admitted to intensive care unit DVT prophylaxis Elevated troponin Precordial chest pain Acute electrocardiogram changes Acute LA STEMI (ST elevation myocardial infarction) CAD (coronary artery disease) Surgical History History of cholecystectomy (07/11/13) Family History Mother Coronary heart disease Father Diabetes Social History Smoking Status: Never smoker Tobacco Type: Smokeless Tobacco (Dip or Chew) Do You Dip or Chew Tobacco: Yes; Hx Alcohol Use: Yes Alcohol type: hard liquor Hx Substance Use: No Preferred Language: Syriac Communication Ability: Effective Crematory Attendant Required: No Beliefs That Will Affect Care: None Current Living Situation: Alone Current Living Situation Comment: apartment Feels Safe at Home: Yes Safety Concerns: Feels Safe At This Time Assistive Devices: None Review of Systems Review of Systems: Patient denies nausea, vomiting, fever, chills, shortness of breath, chest pain. Denies pain to the right foot at baseline however he does have pain with deep palpation to the area of ulceration x 2. All other systems reviewed and negative unless otherwise stated in HPI. Physical Exam Physical Exam: Const: Appears well developed and well nourished. No signs of acute distress present. CV: Extremities: No cyanosis or edema. Capillary refill time is less than 2 seconds all digits of the bilateral foot. Posterior tibial and dorsalis pedis pulses are palpable bilateral. Lymph: No palpable or visible regional lymphadenopathy. Skin: No scars, rashes, lesions or ecchymosis. Neuro: Sensation intact to light touch in all areas of the foot and ankle. Psych: Mood/Affect: Mood is normal. Affect is normal. Cognition: Orientation is intact to person, place and time. Focused lower extremity musculoskeletal exam: Leg: No pain with compression of the calf muscle. Ankles: Normal to inspection and palpation. No swelling bilaterally. No tenderness bilaterally. Motor strength is intact. Range of motion pain-free and unlimited. Feet: Normal to inspection and palpation. No obvious instability. Motor strength is intact. Range of motion pain-free and unlimited. Results & Data Vital Signs (Past 12 Hours) Vital Signs Temp Pulse Pulse Resp BP BP Pulse Ox 08/22/25 07:36 36.6 C 68 16 101/62 98 08/22/25 04:23 37 C 75 14 118/68 97 08/22/25 02:00 36.9 C 85 20 162/73 H 98 08/22/25 00:58 37.1 C 89 18 173/87 H 97 08/22/25 00:04 74 20 152/98 H O2 Del Method 08/22/25 07:36 Room Air 08/22/25 04:23 Room Air 08/22/25 02:00 Room Air 08/22/25 00:58 Room Air 08/22/25 00:04 Room Air PG Care Time/CCT Total # of Minutes Spent Total Time Spent with Patient: Total time spent is greater than 50% in coordination of care (as documented) at patient's floor/unit and/or counseling patient: Coding Level of Care Code 20787 INT INP/OBS CARE 2/55MIN Diagnoses Osteomyelitis of great toe of right foot M86.9 Diabetic vasculopathy E11.59 Diabetic ulcer of right great toe E11.621; L97.519 S/P drug eluting coronary stent placement Z95.5
--- NOTE | 2025-08-22 14:59 | Magnetic Resonance Report ---
MR foot RT w/o con HISTORY: 64 years-old Male Concern for osteomyelitis right hallux ans 5th met chronic pain of the ri ght foot with clinical concern for osteomyelitis COMPARISON: CT right foot of same day, MRA foot 05/15/2025 TECHNIQUE: Multiplanar multisequence MRI of the right foot was obtained without IV contrast FINDINGS: Wound of the distal great toe redemonstrated with moderate terminal thickening and subcutaneous edema . Soft tissue thickening within the nailbed also noted. Moderate dorsal subcutaneous edema throughout the foot. There is diffuse muscle atrophy and edema compatible with chronic denervation change. The imaged flexor and extensor tendons appear intact. There is mild nonspecific marrow edema of the navicular, most pronounced medially. Extensive marrow e magdy of the first distal phalanx with areas of decreased T1 marrow signal noted distally compatible w ith osteomyelitis. Mild cortical fragmentation noted on the same day CT study. Cortical irregularity with marrow edema also involve the medial aspect of the first proximal phalangeal head on image 17 se chiara 8. IMPRESSION: 1. Soft tissue wound of the distal great toe with suggested cellulitis and paronychia without abscess . 2. Osteomyelitis involves the distal medial aspect of the first distal phalanx with probable addition al small area of osteomyelitis involving the medial aspect of the first proximal phalangeal head. ACT 112: Negative or not required by law. The above report was generated using voice recognition software. It may contain grammatical, syntax o r spelling errors. Electronically signed by: Quinn Campbell M.D. 08/22/2025 2:57 PM
[2025-08-22] MEDS: DAPTOmycin 600 MG in SYRINGE 0 ML IV SCH (20:35)
[2025-08-22 22:50] VITALS: O2SAT 98
[2025-08-23 06:58] VITALS: BP 129/73; PULSE 73; RESP 16; TEMP 98.8
[2025-08-23 07:24] LABS: Hematocrit (blood only) 31.5 % (42.0-52.0); Hemoglobin 10.5 g/dl (14.0-18.0); Mean Corpuscular Hemoglobin 29.1 pg (25.0-34.0); Mean Corpuscular Volume 87.3 fL (80.0-100.0); Platelet Count 298 K/uL (130-400); RDW Standard Deviation 45.1 fL (36.4-46.3); Red Blood Count 3.61 M/uL (4.70-6.10); White Blood Count 5.09 K/ul (4.8-10.8)
[2025-08-23 07:46] LABS: Anion Gap 7.0 (3-11); Blood Urea Nitrogen 21.0 mg/dl (6-23); Calcium 8.8 mg/dl (8.6-10.3); Carbon Dioxide 26.0 mmol/L (21-32); Chloride 102.0 mmol/L (98-107); Creatinine Clr Calc Pharmacy 70.9 ml/min; Glucose 131.0 mg/dl (70-99(Fasting)); Potassium 4.1 mmol/L (3.5-5.1); Sodium 135.0 mmol/L (136-145)
--- NOTE | 2025-08-23 09:45 | Infectious Disease Consult ---
Date of Service August 23, 2025 Telehealth Information I performed this visit using a real-time telehealth connection between my location and the patients location ([facility]). After connecting through interactive tele-video, patient was identified by name and date of and/or wristband check.Patient (or authorized healthcare sales representative groceries) was informed that this was a telemedicine visit and it was being conducted confidentially over secure lines. My office door was closed and no one else was present in the room with me.Patient (or authorized healthcare sales representative groceries) provided consent to proceed with the visit, expressed an understanding of privacy and security of the telemedicine visit, and gave permission to have a hospital sales representative groceries in the room in order to assist with the visit and to conduct portions of the visit, as needed. I informed the patient (or authorized healthcare sales representative groceries) that I reviewed their record and presented the opportunity for them to ask any questions regarding the visit today. The patient agreed to participate. Assessment & Plan (1) Osteomyelitis of great toe of right foot: Plan: Refusing amputation Plan 64 y/o M PMHx of diabetes with history of right toe osteomyelitis, history of PAD status post angioplasty, history of CAD history of PCI,, hyperlipidemia who presented to the emergency department with recurrence of right great toe infection.Patient has been evaluated by orthopedics and Podiatry and amputation of 5th toe was recommended but patient declined but consented to bed side debridement where wound cultures have grown GPCs and he is on Daptomycin .Based on his present cultures would recommend continuing Daptomycin (or can switch to vancomycin if no contra-indications) for a total of 6 weeks as long as patient is cognizant that medical management alone will not be sufficient to cure his infection .If he leaves prior to obtaining a PICC line for Daptomycin recommend linezolid for 1-2 weeks while the IV daptomycin is being set up .He will need weekly CBC CMP and CK while on Daptomycin .Follow up in ID clinic in 6 weeks Thank you for allowing us to participate in the care of this patient ID will sign off History of Present Illness History of Present Illness 64 y/o M PMHx of diabetes with history of right toe osteomyelitis, history of PAD status post angioplasty, history of CAD history of PCI,, hyperlipidemia who presented to the emergency department via walk-in for evaluation of recurrence of right great toe infection and worsening of wounds on his right foot beneath his fifth toe. This has been present and worsening since March 2025. He has debilitating diabetic retinopathy and claims that he can not see the extent of his foot injury. He has previously had MRI imaging for concerns for osteomyelitis of his great toe distal phalanx portion. He has been seen by Orthopedics previously and amputation was recommended and declined by patient with hopes of conservative management. He has been seen by Dr. Avelar and has undergone endovascular intervention as well. In the ED his right foot great toe was erythematous with lateral and distal open wounds. MRI of right foot revealed osteomyelitis of 5th toe and he was evaluated by podiatry who again recommended amputation which patient has refused and bedside debridement was done and wound cultures have grown GPC and he is on cefepime and Daptomycin Right foot osteomyelitis Allergies Allergy/AdvReac Type Severity Reaction Status Date / Time morphine Allergy Severe RESPIRATORY Verified 08/21/25 20:26 DISTRESS metformin AdvReac Severe Diarrhea Verified 08/21/25 20:26 empagliflozin AdvReac Mild Gastrointestinal Verified 05/17/25 16:35 [From Jardiance] Upset Home Medications Medication Instructions Recorded Confirmed Type aspirin 81 mg tablet,delayed 81 mg PO DAILY 06/01/19 08/21/25 History release atorvastatin 40 mg tablet 40 mg PO HS #30 tabs 05/18/25 08/21/25 Rx insulin aspart U-100 100 unit/mL 6 unit subcut TIDM 08/21/25 08/21/25 History (3 mL) subcutaneous pen insulin detemir U-100 100 unit/mL 33 unit subcut QAM 08/21/25 08/21/25 History (3 mL) subcutaneous pen clopidogrel 75 mg tablet (Plavix) 75 mg PO QAM 08/22/25 08/22/25 History dulaglutide 1.5 mg/0.5 mL 1.5 mg subcut WK 08/22/25 08/22/25 History subcutaneous pen injector (Trulicity) lisinopril 5 mg tablet 5 mg PO QAM 08/22/25 08/22/25 History metoprolol succinate 25 mg 25 mg PO QAM 08/22/25 08/22/25 History tablet,extended release 24 hr oxycodone 5 mg tablet 5 mg PO Q4H PRN Pain 08/22/25 08/22/25 History vitamins A,C,T-drxq-mochjj 4,296 1 cap PO QAM 08/22/25 08/22/25 History mcg-226 mg-90 mg capsule (PreserVision AREDS) linezolid 600 mg tablet (Zyvox) 600 mg PO BID 1 week #14 tabs 08/23/25 Rx Patient History Medical History ST elevation myocardial infarction (STEMI) of inferior wall Admitted to intensive care unit DVT prophylaxis Elevated troponin Precordial chest pain Acute electrocardiogram changes Acute AL STEMI (ST elevation myocardial infarction) CAD (coronary artery disease) Surgical History History of cholecystectomy (07/11/13) Family History Mother Coronary heart disease Father Diabetes Social History Smoking Status: Never smoker Tobacco Type: Smokeless Tobacco (Dip or Chew) Do You Dip or Chew Tobacco: Yes; Hx Alcohol Use: Yes Alcohol type: hard liquor Hx Substance Use: No Preferred Language: Malay Communication Ability: Effective Ui Developer Required: No Beliefs That Will Affect Care: None Current Living Situation: Alone Current Living Situation Comment: apartment Feels Safe at Home: Yes Assistive Devices: None Review of Systems No respiratory distress Physical Exam Awake alert oriented Results & Data Vital Signs (Past 12 Hours) Vital Signs Temp Pulse Resp BP Pulse Ox O2 Del Method 08/23/25 06:57 37.1 C 73 16 129/73 98 Room Air 08/22/25 22:49 36.8 C 75 18 149/80 H 98 Room Air Diagnostic Findings IMPRESSION: 1. Soft tissue wound of the distal great toe with suggested cellulitis and paronychia without abscess. 2. Osteomyelitis involves the distal medial aspect of the first distal phalanx with probable additional small area of osteomyelitis involving the medial aspect of the first proximal phalangeal head.
--- NOTE | 2025-08-23 13:43 | Discharge Summary ---
Discharge Summary Date of Service August 23, 2025 Principal Dx & Hospital Course #1 = Principal Diagnosis (1) Cellulitis of great toe of right foot: (2) Osteomyelitis of great toe of right foot: (3) Diabetic ulcer of right great toe: (4) DMII (diabetes mellitus, type 2): (5) PAD (peripheral artery disease): (6) Left against medical advice: Plan Patient is a 64y/o M with PMHx significant for uncontrolled insulin-dependent DM type II, extensive diabetic retinopathy of both eyes, diabetic foot ulcers, multivessel CAD with history of inferior STEMI/subacute total acute proximal RCA occlusion in March 2022 s/p EDGARD x 2 to the RCA, remote history of cardiac catheterization in 2012 s/p EDGARD x 3 to the proximal to mid LAD/OM2/proximal ramus, HLD, HTN, PAD, CKD stage IIIb, tobacco use and medical noncompliance who presented to the ED on 08/21/2025 due to concern for reinfection of a diabetic ulcer on the lateral aspect of his R great toe and was found to have osteomyelitis of the R great toe. #R great toe cellulitis and paronychia #R great toe osteomyelitis #Diabetic ulcer of R great toe -- POA #Diabetic ulcer overlying plantar aspect of R 5th metatarsal head -- POA #Left against medical advice Diabetic ulcers on lateral R great toe and plantar aspect of R fifth metatarsal head present since March 2025. Confinement under our service in April 2025 with possible osteomyelitis of the distal phalanx of the R great toe, completed ABX therapy. Was seen by orthopedics, Dr. Lima, last confinement and amputation was recommended however this was declined by the patient. Started on broad-spectrum antibiotics on admission including IV cefepime and daptomycin after initial R foot XR raised suspicion for osteomyelitis involving the medial proximal metaphysis of the distal phalanx of the 1st digit. R foot CT was completed as well which did not suggest osteomyelitis or abscess formation. Nasal MRSA negative. Blood cultures negative. Preliminary wound culture from the R great toe growing Pseudomonas aeruginosa, sensitivities pending. Was seen by podiatry, Dr. Slade. S/p bedside debridement of R foot diabetic ulcers on 08/22/2025. Patient refused amputation at any level or aggressive surgical debridement of his R foot wounds/ulcers. R foot MRI recommended which was completed on 08/22/2025 and revealed osteomyelitis involving the distal medial aspect of the 1st distal phalanx with probable additional small area of osteomyelitis involving the medial aspect of the 1st proximal phalangeal head. Patient educated this morning regarding the need for IV antibiotics for management of his R great toe osteomyelitis. Patient refusing to stay in the hospital to have this arranged as he has "important things to do on the home front." States he has to be out of the hospital before 3PM. Patient informed that he will be leaving the hospital AGAINST MEDICAL ADVICE. He is accepting of the risk with this including but not limited to osteonecrosis, septic arthritis, pathological fractures, gangrene, multisystem organ failure, sepsis and even . His case was discussed with ID. ID recommended p.o. Zyvox until he can get IV daptomycin arranged. He will ultimately need 6 weeks of this. Prescription sent to patient's personal pharmacy for 1 week course of p.o. Zyvox until he can follow-up with his PCP next week to hopefully arrange IV daptomycin therapy. Patient has an appointment with Dr. Loco at [facility] on 08/30/2025 at 11AM. Patient also scheduled to follow-up with Dr. Slade at the [facility] on 09/06/2025. Patient has his R foot dressing changed by DENISE prior to leaving. #Uncontrolled insulin-dependent DMII Hgb A1c 9.3% last confinement, updated Hgb A1c 10.9% this confinement On Levemir 33U QAM, 6U Novolog with meals TID at home --> states he is compliant with this Was previously on Jardiance, no longer on this 2/2 cost #Extensive diabetic retinopathy of both eyes Limited vision at baseline, R>L Hard for patient to visualize extent of R foot ulcerations #Peripheral arterial disease Seen by Dr. Avelar with vascular medicine last admission in April 2025: LLE angiogram: iliacs, TITLE I COORDINATOR widely patent RLE angiogram: 95+% calcified mid TITLE I COORDINATOR, 90% mid popliteal, 100% short distal SURYA occlusion with bridging collaterals; SEWING DEPARTMENT SUPERVISOR, peroneal widely patent * S/p successful angioplasty of R TITLE I COORDINATOR with intravascular lithotripsy, R popliteal stenosis with intravascular lithotripsy and drug-eluting balloon and R anterior tibial artery occlusion with 2.[address] Avelar on 05/17/25 #CKD stage IIIb Baseline Cr around 1.1-1.3 Cr remains stable on repeat labs today #HLD #Multivessel CAD Has not seen [facility] cardiology since 2021 per chart review H/o inferior STEMI/subacute total acute proximal RCA occlusion in March 2022 s/p EDGARD x 2 to the RCA Remote h/o cardiac catheterization in 2012 s/p EDGARD x 3 to the proximal to mid LAD/OM2/proximal ramus Continue statin, ASA and Plavix #HTN Continue BB, lisinopril PCP: Home Loco MD Disposition: Left AGAINST MEDICAL ADVICE Patient seen in collaboration with Dr. Geiger. Please see addendum. I spent a total of 65 minutes coordinating, documenting, and providing care for this patient excluding time spent in the performance of separately billed services or time spent by another provider/QHP. This included personally reviewing all current laboratories and imaging studies, medical reconciliation, outpatient chart review and discussion with specialists. This chart was completed in part utilizing Speech Voice Recognition Software. Grammatical errors, random word insertions, pronoun errors, and incomplete sentences are an occasional consequence of this system due to software limitations, ambient noise, and hardware issues. Any formal questions or concerns about the content, text, or information contained within the body of this dictation should be directly addressed to the provider for clarification. Notes For Next Care Provider Patient left AGAINST MEDICAL ADVICE. Has osteomyelitis of the R great toe. Ideally will need IV daptomycin therapy arranged ESVIN. Medication Changes From Visit No changes made to home medication list. Admission HPI Per Admitting Provider Mr. Odonnell is a 64-year-old male who presented to the [facility] ED with continuation and worsening of wounds on his right foot beneath his fifth toe. This has been present and worsening since March 2025. He has debilitating diabetic retinopathy and claims that he can not see the extent of his foot injury. He has previously had MRI imaging for concerns for osteomyelitis of his great toe distal phalanx portion. He has been seen by Orthopedics previously and amputation was recommended and declined by patient with hopes of conservative management. He has been seen by Dr. Avelar and has undergone endovascular intervention as well. On examination his right foot great toe is erythematous with lateral and distal open wounds covered with Xeroform without malodor. His 5th toe lateral aspect of foot is quarter sized and malodorous with pustule drainage. He denies fever, chills, GAN, dizziness, chest pain, SOB, abdominal pain/tenderness, N/V/D, recent falls or other trauma. He reports that he is compliant with his insulin at home and checking his blood sugars but was unable to tell me a range. We discussed fear around amputation and he agreed that he is fearful of not being able to walk. Patient uses smokeless tobacco daily, drinks yolie with his last drink being 3 days ago; usually a capful per evening. No recreational drug use. Pt will be admitted for further evaluation of his right foot with continued IV abx, MRSA swab, wound culture, orthopedics consult and WOCN consult. Admission Exam Per Admitting Provider On examination his right foot great toe is erythematous with lateral and distal open wounds covered with Xeroform without malodor. His 5th toe lateral aspect of foot is quarter sized and malodorous with pustule drainage. Discharge Exam General: M, NAD, sitting up in bed, A&Ox3, pleasant HEENT: Normocephalic, atraumatic, moist mucous membranes, + cataracts Respiratory: Normal respiratory effort, CTAB Cardiovascular: RRR, normal peripheral pulses, no BLE edema Abdomen/GI: Normal bowel sounds, soft, nontender to palpation in all quadrants Extremities/MSK: R foot warm, palpable RLE PT and DP pulse, normal R foot capillary refill, + erythematous R great toe with lateral and distal open wounds but no visible drainage, + quarter-sized wound on the plantar aspect of the 5th metatarsal with scant dried purulent drainage seen on the bandage which was removed from covering the wound, decreased sensation to light in feet bilaterally (stocking-like distribution) which is unchanged from baseline per patient, able to actively move all extremities, extremities motor strength intact Neurologic: No overt focal deficits, CN's II-XI not formally tested but appear grossly intact bilaterally Updated Medication List Medication Instructions Recorded Confirmed Type aspirin 81 mg tablet,delayed 81 mg PO DAILY 06/01/19 08/21/25 History release atorvastatin 40 mg tablet 40 mg PO HS #30 tabs 05/18/25 08/21/25 Rx insulin aspart U-100 100 unit/mL 6 unit subcut TIDM 08/21/25 08/21/25 History (3 mL) subcutaneous pen insulin detemir U-100 100 unit/mL 33 unit subcut QAM 08/21/25 08/21/25 History (3 mL) subcutaneous pen clopidogrel 75 mg tablet (Plavix) 75 mg PO QAM 08/22/25 08/22/25 History dulaglutide 1.5 mg/0.5 mL 1.5 mg subcut WK 08/22/25 08/22/25 History subcutaneous pen injector (Trulicity) lisinopril 5 mg tablet 5 mg PO QAM 08/22/25 08/22/25 History metoprolol succinate 25 mg 25 mg PO QAM 08/22/25 08/22/25 History tablet,extended release 24 hr oxycodone 5 mg tablet 5 mg PO Q4H PRN Pain 08/22/25 08/22/25 History vitamins A,C,N-xoaf-rcyahs 4,296 1 cap PO QAM 08/22/25 08/22/25 History mcg-226 mg-90 mg capsule (PreserVision AREDS) linezolid 600 mg tablet (Zyvox) 600 mg PO BID 1 week #14 tabs 08/23/25 Rx Hospital Stay Data Consultations 08/21/25 20:34 ED Decision to Admit Stat 08/22/25 06:54 Consult Podiatry Routine 08/22/25 15:13 Consult Infectious Diseases Routine Diagnostic Imagining Performed 08/22/25 00:04 CT foot RT w con Stat 08/22/25 11:26 MRI Foot [MR foot RT w/o con] Routine Total Time Total Time Spent Total Time Spent (In Minutes): 65 Supervising Physician Co-Signing Physician Notes Patient seen and examined at bedside. Extensive discussion was done at bedside regarding treatment for osteomyelitis. Discussion was done regarding amputation and IV antibiotic therapy. He reported that he wouldn't want both. I discussed risks of forgoing treatment which includes sepsis, progression of osteomyelitis resulting in amputation, multiorgan failure, . He was alert, oriented to time, place and person; verbalized understanding of the risks involved but decided to leave the hospital against medical advice. I have reviewed the advanced practitioner's documentation, and I agree with, and take responsibility for the plan of care I spent a total of 30 minutes coordinating, documenting, and providing care for this patient excluding time spent in the performance of separately billed services. All of the aforementioned completed while collaborating with the assigned advanced practitioner for a full treatment plan
--- NOTE | 2025-09-01 19:38 | Coding Query ---
DEBRIDEMENT DOCUMENTATION To promote full compliance with coding requirements relating to patient care, physician participation is requested in all cases of strength and conditioning coach uncertainty. Please assist us with the question(s) below: Procedure: Written informed consent obtained, reviewed risks, benefits and alternatives as well as risks of the alternatives with patient. Written consent witnessed by patient's nurse. Time Out taken. Patient understands and agrees to procedure. Selective debridement was carried out of right hallux and subfifth metatarsal head ulceration consisting of hyperkeratotic and slough tissue was carried out utilizing a iris scissors and 15 blade. Anesthesia- none. Patient tolerated the procedure well. Bleeding-minimal. Controlled with-direct pressure. Post-debridement measurements: Medial right hallux ulcer 1.0 x 1.5 x 0.2 cm. Subfifth metatarsal head ulceration right foot 1.0 x 1.6 x 0.3 A total of 3.1 cm2 were debrided. Please specify debridement type as well as depth Please place an X in the parenthesis (x). If other, please document the finding: Type of Debridement: ( ) Excisional Debridement- Cutting away necrotic, devitalized tissue or slough to the level of viable tissue using a sharp instrument (i.e. scalpel, scissors, etc.) (x ) Non Excisional Debridement- The removal of necrotic, devitalized tissue or slough by means of scraping, mechanical brushing, flushing, or washing (i.e. irrigation,whirlpool);minor removal of loose fragments. ( ) Other (please specify): Instrument Used: ( x) Scissors ( x) Scalpel ( ) Curette ( ) Other (please specify): Depth of Debridement: ( x) Skin ( ) Skin and Subcutaneous Tissue ( ) Skin, Subcutaneous Tissue and Muscle ( ) Skin, Subcutaneous Tissue, Muscle and Bone ( ) Other (please specify): Please Specify the Size of Debridement in cm2: 3.1 Thank you Irina ESPINO
== END 2025-08-23 14:19 | disposition left against medical advice (07) | DRG 638 ==
LOC: ED 17:08 → 3N 22:48